=== PATIENT | male | born 1965 | race Caucasian/White ===

== ENCOUNTER 2019-10-09 10:54 | Day surgery (SDC) | payer BC ==
[2019-10-04 17:45] VITALS: BMI 31.0
[~2019-10-09 10:54] MED LIST: LACTATED RINGERS 1,000 ML IV SCH
[2019-10-09 11:33] VITALS: TEMP 98.2
[2019-10-09] MEDS ORDERED: LIDOCAINE 1% 20 ML VIAL (10MG/ML) FOR IV START INTRADERMA ONE (11:46)
[2019-10-09] MEDS ORDERED: PROPOFOL 10 MG/ML 20 ML VIAL IV ONE (12:29)
--- NOTE | 2019-10-09 12:47 | P.PCN ---
Date of Procedure: 10/09/19 Procedure(s) Performed: BRIEF HISTORY: Patient is a 54-year-old pleasant white male, scheduled for an elective colonoscopy as a part of screening for colorectal neoplasia. PROCEDURE PERFORMED: Colonoscopy. PREOPERATIVE DIAGNOSIS: Screening for colon cancer. IV sedation per Anesthesia. PROCEDURE: After informed consent was obtained, the patient, was brought into the endoscopy unit. IV sedation was administered by Anesthesia under continuous monitoring. Digital rectal examination was normal. Initially the Olympus CF-160 flexible video colonoscope was then inserted in the rectum, gradually advanced into the cecum without any difficulty. Careful examination was performed as the scope was gradually being withdrawn. Ileocecal valve and the appendiceal orifice were visualized and appeared normal. Prep was excellent. Mucosa of the cecum, ascending colon, transverse colon, descending colon, sigmoid colon, and rectum appeared normal. Retroflexion was performed in the rectum and no lesions were seen. The patient tolerated the procedure well. IMPRESSION: Normal-appearing colon from rectum to cecum . RECOMMENDATIONS: Findings of this examination were discussed with the patient as well as his family. He was advised to have a repeat screening colonoscopy in 10 years.
[2019-10-09 13:15] VITALS: BP 140/80; PULSE 83; RESP 18
== END 2019-10-09 13:33 | disposition home or self-care (01) ==
LOC: ORWHC2ENDO 10:54
PROVIDERS: ATTEND Internal Medicine Gastroenterology
DX: Z12.11 Encounter for screening for malignant neoplasm of colon (principal); K21.9 Gastro-esophageal reflux disease without esophagitis; Z79.899 Other long term (current) drug therapy
CPT/HCPCS: J2704; G0121; 45378

== ENCOUNTER 2023-03-24 13:39 | Inpatient (IN) | payer BC ==
[2023-03-24] MEDS ORDERED: NITROGLYCERIN OINT 1 INCH/GM PACKET TOPICAL STA (14:09)
[2023-03-24] MEDS ORDERED: ASPIRIN 81 MG PO STA (14:09)
[2023-03-24] MEDS ORDERED: HEPARIN SODIUM 1,000 UN/ML (10ML VL) IV ONE (14:09)
[2023-03-24] MEDS: ATORVASTATIN 80 MG TAB PO STA ×2 (14:15→14:21)
--- NOTE | 2023-03-24 14:16 | ED ---
General Adult HPI - General Chief complaint: Chest Pain Stated complaint: chest pain Time Seen by Provider: 03/24/23 14:06 Source: patient, RN notes reviewed Mode of arrival: ambulatory Limitations: no limitations - History of Present Illness Initial comments: Patient is a pleasant 58-year-old male presenting to the emergency department with concern for chest discomfort. Onset of symptoms was around an hour and a half prior to arrival. Patient has difficult time describing discomfort but was rated 4/10 without radiation. No associated nausea or diaphoresis. Patient may have been a little bit short of breath. No history of similar symptoms previously. Patient does have family history of cardiac disease however no history himself. No history of high blood pressure or high cholesterol. Patient does chew tobacco. Onset of symptoms was following mowing the lawn - Related Data Home Medications Medication Instructions Recorded Confirmed Lansoprazole [Prevacid] 30 mg PO DAILY 10/04/19 10/09/19 Allergies Allergy/AdvReac Type Severity Reaction Status Date / Time No Known Allergies Allergy Verified 03/24/23 13:40 Review of Systems ROS Statement: Those systems with pertinent positive or pertinent negative responses have been documented in the HPI. ROS Other: All systems not noted in ROS Statement are negative. Constitutional: Denies: fever Eyes: Denies: eye pain ENT: Denies: ear pain Respiratory: Reports: as per HPI Cardiovascular: Reports: as per HPI, chest pain Endocrine: Denies: fatigue Gastrointestinal: Denies: abdominal pain Genitourinary: Denies: dysuria Musculoskeletal: Denies: back pain Skin: Denies: rash Neurological: Denies: weakness Past Medical History Past Medical History: GERD/Reflux History of Any Multi-Drug Resistant Organisms: None Reported Past Surgical History: Cholecystectomy Past Anesthesia/Blood Transfusion Reactions: No Reported Reaction Past Psychological History: No Psychological Hx Reported Past Alcohol Use History: Occasional Past Drug Use History: None Reported - Past Family History Mother Family Medical History: No Reported History General Exam Limitations: no limitations General appearance: alert Head exam: Present: normocephalic Eye exam: Present: normal appearance Neck exam: Present: normal inspection Respiratory exam: Present: normal lung sounds bilaterally. Absent: chest wall tenderness Cardiovascular Exam: Present: regular rate, normal rhythm Expanded Peripheral pulses: 2+: Radial (R), Radial (L), Posterior Tibialis (R), Posterior Tibialis (L) GI/Abdominal exam: Present: soft. Absent: tenderness Extremities exam: Present: normal inspection. Absent: pedal edema, calf tenderness Neurological exam: Present: alert Psychiatric exam: Present: normal affect, normal mood Skin exam: Present: normal color Course Vital Signs 03/24/23 13:40 Temperature 98.2 F Pulse Rate 67 Respiratory 16 Rate Blood Pressure 159/87 O2 Sat by Pulse 100 Oximetry - Reevaluation(s) Reevaluation #1: 03/24/23 14:16 Case was discussed with Dr. Acuña, who will admit covering Dr. Carrion 03/24/23 14:17 Case was discussed with Dr. Wick who agrees with activating the lab and he will discuss this with Dr. Garcia 03/24/23 14:22 STEMI alert was called at 1406 when EKG was viewed. EKG was brought to me at this time. 03/24/23 14:25 Patient has gone to [facility] EKG Findings - EKG Results: EKG: interpreted by NASH (Inferior ST elevation with borderline lateral elevation. There is depression in aVL.), sinus rhythm, normal axis, normal QRS Medical Decision Making - Medical Decision Making Was pt. sent in by a medical professional or institution (, PA, MEDIA ANALYTICS MANAGER, urgent care, hospital, or jail...) When possible be specific @ -No Did you speak to anyone other than the patient for history (EMS, parent, family, police, friend...)? What history was obtained from this source @ -No Did you review nursing and triage notes (agree or disagree)? Why? @ -I reviewed and agree with nursing and triage notes Were old charts reviewed (outside hosp., previous admission, EMS record, old EKG, old radiological studies, urgent care reports/EKG's, jail records)? Report findings @ -No old charts were reviewed Differential Diagnosis (chest pain, altered mental status, abdominal pain women, abdominal pain men, vaginal bleeding, weakness, fever, dyspnea, syncope, headache, dizziness, GI bleed, back pain, seizure, CVA, palpatations, mental health)? @ -Differential Chest Pain: Stable Angina, Unstable Angina, STEMI, NSTEMI Aortic Dissection, Pneumothorax, Musculoskeletal, Esophageal Spasm GERD, Cholecystitis, Pancreatitis, Zoster, this is not meant to be an all-inclusive list. EKG interpreted by me (3pts min.). @ -As above X-rays interpreted by me (1pt min.). @ -Chest x-ray shows no acute process CT interpreted by me (1pt min.). @ -None done U/S interpreted by me (1pt. min.). @ -None done What testing was considered but not performed or refused? (CT, X-rays, U/S, labs)? Why? @ -None What meds were considered but not given or refused? Why? @ -None Did you discuss the management of the patient with other professionals (professionals i.e. DrNew, PA, MEDIA ANALYTICS MANAGER, lab, RT, psych nurse, social sciences research scientist, skin peeling machine operator, teacher, helicopter officer, casey saw operator)? Give summary @ -Case was discussed with Dr. Hartman, who will admit. Case also discussed with Dr. Wick with cardiology Was smoking cessation discussed for >3mins.? @ -No Was critical care preformed (if so, how long)? @ -15 minutes critical care time done Were there social determinants of health that impacted care today? How? (Homelessness, low income, unemployed, alcoholism, drug addiction, transportation, low edu. Level, literacy, decrease access to med. care, nursing home, rehab)? @ -No Was there de-escalation of care discussed even if they declined (Discuss DNR or withdrawal of care, Hospice)? DNR status @ -No What co-morbidities impacted this encounter? (DM, HTN, Smoking, COPD, CAD, Cancer, CVA, ARF, Chemo, Hep., AIDS, mental health diagnosis, sleep apnea, morbid obesity)? @ -None Was patient admitted / discharged? Hospital course, mention meds given and route, prescriptions, significant lab abnormalities, going to OR and other pertinent info. @ -Patient presents with STEMI on EKG following doing yard work. Patient is pain-free at this time however significant changes and symptoms consistent with STEMI patient will value from emergent cath. Patient will be admitted and go to [facility] shortly. Undiagnosed new problem with uncertain prognosis? @ -No Drug Therapy requiring intensive monitoring for toxicity (Heparin, Nitro, Insulin, Cardizem)? @ -No Were any procedures done? @ -No Diagnosis/symptom? @ -STEMI Acute, or Chronic, or Acute on Chronic? @ -Acute Uncomplicated (without systemic symptoms) or Complicated (systemic symptoms)? @ -default Side effects of treatment? @ -No Exacerbation, Progression, or Severe Exacerbation? @ -No Poses a threat to life or bodily function? How? (Chest pain, [place], MA, pneumonia, PE, COPD, DKA, ARF, appy, cholecystitis, CVA, Diverticulitis, Homicidal, Suicidal, threat to staff... and all critical care pts) @ -No Critical Care Time Critical Care Time: Yes Total Critical Care Time: 15 Disposition Clinical Impression: ST elevation myocardial infarction (STEMI) Disposition: ADMITTED IP TO THIS HOSP Condition: Critical Is patient prescribed a controlled substance at d/c from ED?: No Time of Disposition: 14:26
[2023-03-24] MEDS ORDERED: NALOXONE 0.4 MG/ML 1 ML VIAL IV PRN (14:20)
--- NOTE | 2023-03-24 14:20 | XR ---
EXAMINATION TYPE: XR chest 1V portable DATE OF EXAM: 03/24/2023 2:16 PM COMPARISON: None TECHNIQUE: XR chest 1V portable Portable AP radiograph of the chest. CLINICAL INDICATION:Male, 58 years old with history of chest pain; FINDINGS: Lungs/Pleura: There is no evidence of pleural effusion, focal consolidation, or pneumothorax. Pulmonary vascularity: Unremarkable. Heart/mediastinum: Cardiomediastinal silhouette is unremarkable. Musculoskeletal: No acute osseous pathology. IMPRESSION: No acute cardiopulmonary disease/process.
[2023-03-24 14:28] LABS: Basophils % (A) 0 %; Eosinophils # (A) 0.1 k/uL (0-0.7); Eosinophils % (A) 1 %; HGB 15.9 gm/dL (13.0-17.5); Lymphocytes # (A) 1.6 k/uL (1.0-4.8); Lymphocytes % (A) 20 %; MCHC 33.8 g/dL (31.0-37.0); MCV 88.8 fL (80.0-100.0); Mean Platelet Volume 7.3; Monocytes # (A) 0.3 k/uL (0-1.0); Monocytes % (A) 4 %; Neutrophils # (A) 5.7 k/uL (1.3-7.7); Neutrophils % (A) 73 %; Platelet Count 261 k/uL (150-450); RBC 5.29 m/uL (4.30-5.90); RDW 13.3 % (11.5-15.5); WBC 7.8 k/uL (3.8-10.6)
[2023-03-24] MEDS ORDERED: HEPARIN SODIUM 1,000 UN/ML (10ML VL) ONE (14:30)
[2023-03-24] MEDS ORDERED: fentaNYL (PF) 50 MCG/ML 2 ML AMP ONE (14:30)
[2023-03-24] MEDS ORDERED: MIDAZOLAM 2 MG/2 ML VIAL IV ONE (14:33)
[2023-03-24] MEDS ORDERED: fentaNYL (PF) 50 MCG/ML 2 ML AMP IV ONE (14:33)
[2023-03-24 14:36] LABS: INR 0.9 (<1.2); Partial Thromboplastin Time 23.2 sec (22.0-30.0); Prothrombin Time 9.8 sec (9.0-12.0)
[2023-03-24] MEDS ORDERED: SODIUM CHLORIDE 0.9% 1,000 ML IV ONE (14:37)
[2023-03-24] MEDS ORDERED: LIDOCAINE 1% INJ 10MG/ML (5 ML VIAL-PF) SQ ONE (14:39)
[2023-03-24] MEDS: HEPARIN SODIUM 1,000 UN/ML (10ML VL) IV ONE ×2 (14:44→14:55)
[2023-03-24 14:45] LABS: ALT 45 U/L (4-49); AST 51 U/L (17-59); African American GFR (CKD) >90 (>60 ml/min/1.73 sqM); Albumin 4.7 g/dL (3.5-5.0); Alkaline Phosphatase 59 U/L (38-126); Anion Gap 14 mmol/L; Blood Urea Nitrogen 19 mg/dL (9-20); Calcium 9.5 mg/dL (8.4-10.2); Carbon Dioxide 22 mmol/L (22-30); Chloride 103 mmol/L (98-107); Glucose 120 mg/dL (74-99); Non-African American GFR(CKD) 80 (>60 ml/min/1.73 sqM); Potassium 4.1 mmol/L (3.5-5.1); Sodium 139 mmol/L (137-145); Total Protein 7.6 g/dL (6.3-8.2)
[2023-03-24] MEDS ORDERED: ATROPINE SULFATE 0.1 MG/ML 10ML SYRINGE IV ONE (14:48)
[2023-03-24] MEDS: PHENYLEPHRINE-0.9% NACL SYG 1,000 MCG/10 ML SYRINGE IV ONE ×2 (14:49→14:58)
[2023-03-24] MEDS ORDERED: PRASUGREL 10 MG TAB ONE (14:52)
[2023-03-24] MEDS ORDERED: PRASUGREL 10 MG TAB PO ONE (14:59)
[2023-03-24] MEDS: NITROGLYCERIN 1000MCG/10ML SYRINGE INTRACORON ONE ×2 (15:12→15:23)
[2023-03-24] MEDS ORDERED: IOPAMIDOL-370 200ML BTL INJ ONE (15:32)
[2023-03-24 16:06] LABS: Glucose,Whole Blood 93 mg/dL (70-110)
[2023-03-24] MEDS ORDERED: NITROGLYCERIN SL TABS 0.4 MG TAB SUBLINGUAL PRN (17:09)
[2023-03-24] MEDS ORDERED: MAG HYDROX/AL HYDROX/SIMETH 30 ML CUP PO PRN (17:09)
[2023-03-24] MEDS ORDERED: ZOLPIDEM 5 MG TAB PO PRN (17:09)
[2023-03-24] MEDS ORDERED: ATROPINE SULFATE 0.1 MG/ML 10ML SYRINGE IV PRN (17:09)
[2023-03-24] MEDS ORDERED: RX INFO: IV CONTRAST WAS GIVEN 1 EACH MISC MISCELLANE PRN (17:09)
--- NOTE | 2023-03-24 17:39 | P.HPIM ---
History of Present Illness H&P Date: 03/24/23 Patient is a 58-year-old male with no significant past medical history presenting with chest discomfort. He claims that over the last 2 days he has been working hard in his yard. He noticed increased chest tightness today and decided come to the hospital. He denies any palpitations, shortness breath, lightheadedness, abdominal pain, nausea, vomiting, urinary or bowel complaints. He has a significant family history of coronary artery disease. He also chews tobacco daily, denies any illicit drug use, occasional alcohol use. In the ED, temperature was 98.2, blood pressure 159/87, respiratory rate 16, pulse 67, saturating 100% on room air. EKG shows inferior STEMI.. Chest x-ray shows no acute process. Laboratory workup shows unremarkable CBC, unremarkable CMP, initial troponin 0.022. STEMI pager alerted. Patient taken straight to laboratory specialist. He will be admitted to medical ICU after catheterization. Pertinent positives and negatives as discussed in HPI, a complete review of systems was performed and all other systems are negative. Patient seen and examined at bedside. Vital signs reviewed General: nontoxic, no distress, appears at stated age Derm: warm, dry Head: atraumatic, normocephalic, symmetric Eyes: EOMI, no lid lag, anicteric sclera, pupils equal round reactive to light ENT: Nose and ears atraumatic Neck: No thyromegaly, supple Mouth: no lip lesion, mucus membranes moist Cardiovascular: S1S2 reg, no murmur, no edema Lungs: clear to auscultation bilateral, no rhonchi, no rales, no wheeze, no accessory muscle use Abdominal: soft, nontender to palpation, no guarding, no appreciable organomegaly Ext: no gross muscle atrophy, muscle strength muscle strength 5 out of 5 in all 4 extremities, no contractures Neuro: CN II-XII grossly intact Psych: Alert, oriented, appropriate affect Assessment/Plan: Active: Acute inferior STEMI Tobacco dependence -Aspirin, statin, second antiplatelet therapy per cardiology -Continue telemetry -Patient to be admitted to medical ICU -Echocardiogram pending -A1c, lipid panel, TSH pending -Cardiology following -Cath report pending -Counseled regarding tobacco cessation The patient is admitted with an anticipated greater than 2 midnight stay as inpatient status for evaluation of acute inferior STEMI. Surrogate decision-maker: Spouse CODE STATUS: Full code DVT prophylaxis: Subcu heparin Anticipated discharge date: Pending clinical course Anticipated discharge place: Pending clinical course A total of 55 minutes was spent on the care of this complex patient more than 50% of the time was spent in counseling and care coordination. Past Medical History Past Medical History: GERD/Reflux History of Any Multi-Drug Resistant Organisms: None Reported Past Surgical History: Cholecystectomy Past Anesthesia/Blood Transfusion Reactions: No Reported Reaction Past Psychological History: No Psychological Hx Reported Past Alcohol Use History: Occasional Past Drug Use History: None Reported - Past Family History Mother Family Medical History: No Reported History Medications and Allergies Home Medications Medication Instructions Recorded Confirmed Type No Known Home Medications 03/24/23 03/24/23 History Allergies Allergy/AdvReac Type Severity Reaction Status Date / Time No Known Allergies Allergy Verified 03/24/23 16:43 Physical Exam Vitals: Vital Signs Temp Pulse Resp BP Pulse Ox 03/24/23 14:25 72 18 145/82 99 03/24/23 14:10 75 18 156/75 98 03/24/23 13:40 98.2 F 67 16 159/87 100 Intake and Output 03/24/23 03/24/23 03/24/23 06:59 14:59 22:59 Intake Total 500 Balance 500 Intake: IV 500 Other: Weight 92.986 kg Results CBC & Chem 7: 03/24/23 14:14 03/24/23 14:14 Labs: Abnormal Lab Results - Last 24 Hours (Table) 03/24/23 Range/Units 14:14 Glucose 120 H (74-99) mg/dL Total Bilirubin 2.0 H (0.2-1.3) mg/dL
[2023-03-24] MEDS: SODIUM CHLORIDE 0.9% 1,000 ML in EMPTY BAG 1 BAG IV SCH (17:48)
--- NOTE | 2023-03-24 21:37 | P.CRDCN ---
History of Present Illness History of present illness: HISTORY OF PRESENT ILLNESS: This is a 58-year-old male with a past medical history significant for family history of CAD, chewing tobacco use, and no significant medical problems who presents secondary to substernal chest pain. Occasionally if he over exerts himself to the extreme he would have mild chest discomfort however usually only for a short 10-20 seconds and would stop and therefore has not thought much of it. Today he was working in the yard mowing the grass and started to have constant chest pain with some SOB and therefore came to ER. EKG showed sinus rhythm and ST elevations and therefore catheterization lab was activated and was given aspirin and Heparin. REVIEW OF SYSTEMS: At the time of my exam: CONSTITUTIONAL: Denies fever or chills. HEENT: Denies blurred vision, vision changes, or eye pain. Denies hemoptysis CARDIOVASCULAR: +chest pain. Denies orthopnea. Denies PND. Denies palpitations RESPIRATORY: +shortness of breath. GASTROINTESTINAL: Denies abdominal pain. Denies nausea or vomiting. HEMATOLOGIC: Denies bleeding disorders. GENITOURINARY: Denies any blood in urine. SKIN: Denies pruitis. Denies rash. PHYSICAL EXAM: VITAL SIGNS: Reviewed. GENERAL: Well-developed in no acute distress. HEENT: Head is normocephalic. Pupils are equal, round. Sclerae anicteric. Mucous membranes of the mouth are moist. Neck supple. No JVD or thyromegaly LUNGS: Respirations even and unlabored. Lungs essentially clear to auscultation bilaterally. HEART: Regular rate and rhythm. S1 and S2 heard. ABDOMEN: Soft. Nondistended. Nontender. EXTREMITIES: Normal range of motion. No clubbing or cyanosis. Peripheral pulses intact. No lower extremity edema NEUROLOGIC: Awake and alert. Oriented x 3. ASSESSMENT: Acute inferior STEMI Family history of CAD HLD Chewing tobacco use PLAN: Discussed recommendations for urgent heart catheterization and patient is agreeable. Check 2D echo. Aspirin, heparin. BBlocker as tolerated. Further recommendations to follow. Past Medical History Past Medical History: GERD/Reflux Last Myocardial Infarction Date:: 03/24/23 History of Any Multi-Drug Resistant Organisms: None Reported Past Surgical History: Cholecystectomy Past Anesthesia/Blood Transfusion Reactions: No Reported Reaction Past Psychological History: No Psychological Hx Reported Past Alcohol Use History: Occasional Past Drug Use History: None Reported - Past Family History Mother Family Medical History: No Reported History Medications and Allergies Home Medications Medication Instructions Recorded Confirmed Type No Known Home Medications 03/24/23 03/24/23 History Allergies Allergy/AdvReac Type Severity Reaction Status Date / Time No Known Allergies Allergy Verified 03/24/23 16:43 Physical Exam Vitals: Vital Signs Temp Pulse Resp BP Pulse Ox 03/24/23 21:00 68 11 L 110/69 96 03/24/23 20:30 58 L 14 115/61 94 L 03/24/23 20:00 98.0 F 56 L 12 108/70 95 03/24/23 19:30 65 16 104/66 95 03/24/23 19:00 59 L 14 106/64 97 03/24/23 18:30 79 16 107/66 96 03/24/23 18:00 59 L 14 105/62 98 03/24/23 17:45 58 L 15 105/62 98 03/24/23 17:30 55 L 13 109/65 99 03/24/23 17:00 61 20 119/61 99 03/24/23 16:45 62 16 98/63 100 03/24/23 16:30 68 14 115/71 100 03/24/23 16:15 73 17 113/69 98 03/24/23 16:00 98.1 F 78 10 L 112/74 97 03/24/23 15:56 98 03/24/23 14:25 72 18 145/82 99 03/24/23 14:10 75 18 156/75 98 03/24/23 13:40 98.2 F 67 16 159/87 100 Intake and Output 03/24/23 03/24/23 03/24/23 06:59 14:59 22:59 Intake Total 500 465 Output Total 1025 Balance 500 -560 Intake: IV 500 465 Sodium Chloride 0.9% 1, 465 000 ml In Empty Bag 1 bag @ 1 ML/KG/HR 92.986 mls/ hr IV .[id number] [facility] Rx#: [id number] Output: Urine 1025 Other: # Voids 1 Weight 92.986 kg 92.986 kg Results 03/24/23 14:14 03/24/23 14:14 Cardiac Enzymes 03/24/23 03/24/23 Range/Units 14:14 14:14 AST 51 (17-59) U/L Troponin I 0.022 (0.000-0.034) ng/mL Coagulation 03/24/23 Range/Units 14:14 PT 9.8 (9.0-12.0) sec APTT 23.2 (22.0-30.0) sec CBC 03/24/23 Range/Units 14:14 WBC 7.8 (3.8-10.6) k/uL RBC 5.29 (4.30-5.90) m/uL Hgb 15.9 (13.0-17.5) gm/dL Hct 47.0 (39.0-53.0) % Plt Count 261 (150-450) k/uL Comprehensive Metabolic Panel 03/24/23 Range/Units 14:14 Sodium 139 (137-145) mmol/L Potassium 4.1 (3.5-5.1) mmol/L Chloride 103 (98-107) mmol/L Carbon Dioxide 22 (22-30) mmol/L BUN 19 (9-20) mg/dL Creatinine 1.03 (0.66-1.25) mg/dL Glucose 120 H (74-99) mg/dL Calcium 9.5 (8.4-10.2) mg/dL AST 51 (17-59) U/L ALT 45 (4-49) U/L Alkaline Phosphatase 59 (38-126) U/L Total Protein 7.6 (6.3-8.2) g/dL Albumin 4.7 (3.5-5.0) g/dL Current Medications Generic Name Dose Route Start Last Admin Trade Name Freq PRN Reason Stop Dose Admin Al Hydroxide/Mg Hydroxide 30 ml 03/24/23 17:09 Mag Hydrox/Al Hydrox/Simeth 30 Ml Cup PO Q4HR PRN Heartburn Aspirin 81 mg 03/25/23 09:00 Aspirin 81 Mg PO DAILY ERNESTO Atorvastatin Calcium 80 mg 03/25/23 09:00 Atorvastatin 80 Mg Tab PO DAILY ERNESTO Atropine Sulfate 0.5 mg 03/24/23 17:09 Atropine Sulfate 0.1 Mg/Ml 10ml Syringe IV ONCE PRN Symptomatic Bradycardia Heparin Sodium (Porcine) 5,000 unit 03/25/23 00:00 Heparin Sodium,Porcine/Pf 5,000 Unit/0.5 Ml Syringe SQ Q8HR ERNESTO Sodium Chloride 1,000 ml/ IV 1,000 mls @ 92.986 mls/hr 03/24/23 17:15 03/24/23 17:48 Solution IV 92.986 mls/hr .[id number] ERNESTO Administration 1 ML/KG/HR Miscellaneous Information 1 each 03/24/23 17:09 Rx Info: Iv Contrast Was Given 1 Each Mis MISCELLANE 03/26/23 17:09 DAILY PRN Per Protocol Naloxone HCl 0.2 mg 03/24/23 14:20 Naloxone 0.4 Mg/Ml 1 Ml Vial IV 04/23/23 14:21 Q2M PRN Opioid Reversal Nitroglycerin 0.4 mg 03/24/23 17:09 Nitroglycerin Sl Tabs 0.4 Mg Tab SUBLINGUAL Q5M PRN Chest Pain Zolpidem Tartrate 5 mg 03/24/23 17:09 Zolpidem 5 Mg Tab PO HS PRN Insomnia Intake and Output 03/24/23 03/24/23 03/24/23 06:59 14:59 22:59 Intake Total 500 465 Output Total 1025 Balance 500 -560 Intake: IV 500 465 Sodium Chloride 0.9% 1, 465 000 ml In Empty Bag 1 bag @ 1 ML/KG/HR 92.986 mls/ hr IV .[id number] ERNESTO Rx#: [id number] Output: Urine 1025 Other: # Voids 1 Weight 92.986 kg 92.986 kg Patient Weight 03/25/23 06:59 Weight 92.986 kg 03/24/23 14:14 03/24/23 14:14
--- NOTE | 2023-03-24 21:53 | P.PRCINT ---
Percutaneous Coronary Int. - Percutaneous Coronary Intervention Percutaneous Coronary Intervention: PROCEDURES PERFORMED: Bilateral coronary angiography, Penumbra aspiration thrombectomy RCA, PCI proximal RCA with 3.5 x 28mm Xience EDWARD, post dilated with a 3.75NC balloon, PCI distal RCA with a 2.5 x 38mm Xience EDWARD post dilated with a 2.75NC balloon, IVUS RCA INDICATION: NSTEMI CONSENT:I have discussed the risks, benefits and alternative therapies for the above-mentioned procedure and for both sedation/analgesia as well as necessary blood product administration, if indicated, as they pertain to this patient. The patient has indicated understanding and acceptance of the risks and procedures discussed. PROCEDURE: After the risks, benefits and alternatives of the above mentioned procedure explained in detail with the patient, informed consent was obtained. Patient was taken to the catheterization lab and prepped and draped in usual fashion. 1% lidocaine was used to anesthetize the right radial artery. A 6- Malawian sheath was placed in the right radial artery using modified Seldinger technique. RCA angiography was performed with a 6Fr AL 0.75 guide. The decision was made to perform PCI of the RCA. Heparin was given. A 0.014 BMW wire was advanced into the distal PLV. There was high thrombus burden and therefore the decision was made to perform aspiration thrombectomy with a Penumbra catheter for 3 passes. Next predilation was performed with a 2.5 x 12mm balloon. Next IVUS was performed which showed diffuse distal RCA disease as well as throughout the entire artery. There was additional proximal RCA 70% stenosis and therefore decision was made to perform PCI of the proximal RCA as well. A 2.5 x 38mm Xience EDWARD was placed distally. This stent was post dilated with a 2.75 NC balloon. A 3.5 x 28mm Xience EDWARD was placed proximal RCA. The stent was post dilated with a 3.75NC balloon. Repeat IVUS showed good stent apposition. Preintervention there was 99% distal RCA stenosis and 70% proximal RCA stenosis with JEROME 1 flow and post intervention there was < 10% stenosis and JEROME 3 flow. Left coronary angiography was performed with a 5-Malawian JL 3.5 catheter. The right radial sheath was removed and a TR band was placed with hemostasis achieved. The patient tolerated the procedure well. Patient was transported back to the post catheterization holding area in stable condition. Conscious Sedation: Patient was monitored under the direct supervision of myself for conscious sedation using Versed and fentanyl for a total duration of 53 minutes HEMODYNAMICS: Aorta: 109/70 SELECTIVE CORONARY ARTERIOGRAPHY: LEFT MAIN: The left main is a large caliber vessel which bifurcates into the LAD and circumflex. There is distal left main 30% stenosis. LEFT ANTERIOR DESCENDING CORONARY ARTERY: LAD is a large caliber vessel which wraps around to the apex. There is mild 30% proximal LAD stenosis and then long area of 50% stenosis involving a moderate caliber diagonal branch and then a mid LAD 90% stenosis. LEFT CIRCUMFLEX CORONARY ARTERY: Left circumflex is a moderate caliber vessel with mild luminal irregularities. RIGHT CORONARY ARTERY: The right coronary artery is a large caliber vessel which gives off a PDA and PLV branch and is the dominant vessel. There is diffuse 30% stenosis throughout the entire artery and more focal proximal 70% stenosis and a distal 99% RCA stenosis. PLV has a 50% mid stenosis. FINAL IMPRESSION: 1. CAD as described above including 70% proximal RCA, 99% distal RCA, mid LAD 90% and left main 30% stenosis 2. S/p PCI proximal RCA with 3.5 x 28mm Xience EDWARD, post dilated with a 3.75NC balloon, PCI distal RCA with a 2.5 x 38mm Xience EDWARD post dilated with a 2.75NC balloon PLAN: 1. Aggressive risk factor modification per most recent ACC/AHA guidelines. 2. Continue dual antiplatelets with aspirin and Effient for 12 months. 3. Staged PCI of LAD in next 30 days.
[2023-03-24] MEDS: HEPARIN SODIUM,PORCINE/PF 5,000 UNIT/0.5 ML SYRINGE SQ SCH (23:57)
[2023-03-25] MEDS: SODIUM CHLORIDE 0.9% 1,000 ML in EMPTY BAG 1 BAG IV SCH ×2 (05:03→18:28)
[2023-03-25 06:23] LABS: Basophils % (A) 0 %; Eosinophils # (A) 0.1 k/uL (0-0.7); Eosinophils % (A) 1 %; HGB 13.7 gm/dL (13.0-17.5); Lymphocytes # (A) 1.4 k/uL (1.0-4.8); Lymphocytes % (A) 22 %; MCHC 33.3 g/dL (31.0-37.0); Mean Platelet Volume 7.4; Monocytes # (A) 0.3 k/uL (0-1.0); Monocytes % (A) 6 %; Neutrophils # (A) 4.3 k/uL (1.3-7.7); Neutrophils % (A) 69 %; Platelet Count 203 k/uL (150-450); RBC 4.56 m/uL (4.30-5.90); RDW 13.4 % (11.5-15.5); WBC 6.2 k/uL (3.8-10.6)
[2023-03-25 06:38] LABS: African American GFR (CKD) >90 (>60 ml/min/1.73 sqM); Anion Gap 7 mmol/L; Blood Urea Nitrogen 12 mg/dL (9-20); Calcium 8.3 mg/dL (8.4-10.2); Carbon Dioxide 21 mmol/L (22-30); Chloride 110 mmol/L (98-107); Glucose 97 mg/dL (74-99); Non-African American GFR(CKD) >90 (>60 ml/min/1.73 sqM); Potassium 4.1 mmol/L (3.5-5.1); Sodium 138 mmol/L (137-145)
[2023-03-25] MEDS: HEPARIN SODIUM,PORCINE/PF 5,000 UNIT/0.5 ML SYRINGE SQ SCH ×3 (08:37→23:59)
[2023-03-25] MEDS: ATORVASTATIN 80 MG TAB PO SCH (08:38)
[2023-03-25] MEDS: ASPIRIN 81 MG PO SCH (08:38)
[2023-03-25] MEDS: METOPROLOL SUCCINATE (ER) 25 MG TAB.ER.24H PO SCH (08:38)
[2023-03-25] MEDS: PRASUGREL 10 MG TAB PO SCH (10:14)
--- NOTE | 2023-03-25 10:51 | P.PN ---
Subjective Progress Note Date: 03/25/23 Hospital Course: 58-year-old male with no significant past medical history presenting with chest discomfort. In the ED, temperature was 98.2, blood pressure 159/87, respiratory rate 16, pulse 67, saturating 100% on room air. EKG shows inferior STEMI.. Chest x-ray shows no acute process. Laboratory workup shows unremarkable CBC, unremarkable CMP, initial troponin 0.022. He is now status post stent 2. Left heart cath showed 70% proximal RCA, 99% distal RCA, mid LAD 90%, left main 30% stenosis. Patient is currently on aspirin, statin, and effient. Will need staged PCI for LAD in the next 30 days. Echocardiogram pending. Subjective: Patient seen and examined at bedside. No acute events overnight. He denies any chest pain, shortness of breath, lightheadedness, abdominal pain, nausea, vomiting, diarrhea, constipation, or urinary complaints. Pertinent positives and negatives as discussed above, a complete review of systems was performed and all other systems are negative. Vitals Signs Reviewed. General: nontoxic, no distress, appears at stated age Derm: warm, dry Head: atraumatic, normocephalic, symmetric Eyes: EOMI, no lid lag, anicteric sclera Mouth: no lip lesion, mucus membranes moist Cardiovascular: S1S2 reg, no murmur Lungs: CTA bilateral, no rhonchi, no rales , no accessory muscle use Abdominal: soft, nontender to palpation, no guarding, no appreciable organomegaly Ext: no gross muscle atrophy, no edema, no contractures Neuro: CN II-XI grossly intact, no focal neuro deficits Psych: Alert, oriented, appropriate affect Data Reviewed Today: Pertinent Labs: WBC 6.2, hemoglobin 13.7, creatinine 0.83, TSH 1.8, A1c 5.4, lipid panel pending Imaging: EKG from this morning independently interpreted, shows sinus bradycardia Assessment and Plan: Patient currently remains in the medical ICU for close observation. Acute inferior STEMI Tobacco dependence -Aspirin, statin, effient -Continue telemetry -Echocardiogram pending -Lipid panel pending -Cardiology following, patient also started on metoprolol 12.5 -Patient will likely need staged PCI to LAD in the next 30 days -Counseled regarding tobacco cessation DVT ppx: Subcu heparin Code status: Full Code Anticipated discharge place: Home Anticipated discharge time: 1-2 days Objective - Vital Signs Vital signs: Vital Signs Temp 97.8 F 03/25/23 08:00 Pulse 61 03/25/23 10:00 Resp 13 03/25/23 10:00 BP 110/57 03/25/23 10:00 Pulse Ox 97 03/25/23 10:00 FiO2 Intake & Output 03/24/23 03/25/23 03/25/23 18:59 06:59 18:59 Intake Total 686 1209 279 Output Total 1501 550 Balance 686 292 -271 Weight 92.986 kg 97.1 kg Intake: IV 686 1209 279 Sodium Chloride 0.9% 1, 186 1209 279 000 ml In Empty Bag 1 bag @ 1 ML/KG/HR 92.986 mls/ hr IV .[id number] [facility] Rx#: [id number] Output: Urine 1500 550 Stool 1 Other: # Voids 0 0 - Labs CBC & Chem 7: 03/25/23 05:42 03/25/23 05:42 Labs: Abnormal Lab Results - Last 24 Hours (Table) 03/24/23 03/25/23 Range/Units 14:14 05:42 Chloride 110 H (98-107) mmol/L Carbon Dioxide 21 L (22-30) mmol/L Glucose 120 H (74-99) mg/dL Calcium 8.3 L (8.4-10.2) mg/dL Total Bilirubin 2.0 H (0.2-1.3) mg/dL
[2023-03-25 11:44] VITALS: BMI 31.6
[2023-03-25 13:41] LABS: LDL Cholesterol,Calculated 83.3 mg/dL (0.0-131.0)
--- NOTE | 2023-03-25 14:11 | P.PN ---
Subjective Progress Note Date: 03/25/23 This is Jb Cintron NP, I'm dictating on behalf of Dr. Bolden's H&P and A&P. Patient was interviewed and examined. Patient is a pleasant 58-year-old male who came in yesterday with a STEMI. Patient underwent percutaneous coronary intervention, which found coronary artery disease at 70% in the proximal RCA, 99% in the distal RCA, 90% in the mid LAD, and 30% stenosis in the left main. Patient underwent PCI of the proximal RCA and distal RCA, along with clot removal. Patient did well with the proc edure, and reports that he is doing well today. He is denying chest pain, and shortness of breath. The site of the PCI in the right wrist is clean, dry, and intact, peripheral pulses are present. GENERAL: Well-appearing, well-nourished and in no acute distress. NECK: Supple without JVD or thyromegaly. LUNGS: Breath sounds clear to auscultation bilaterally. Respiration equal and unlabored. No wheezes, rales or rhonchi. HEART: Regular rate and rhythm without murmurs, rubs or gallops. S1 and S2 heard. EXTREMITIES: Normal range of motion, no edema. No clubbing or cyanosis. Peripheral pulses intact and strong. VITALS: Temp 97.8, pulse 77, respirations 12, blood pressure 122/69, O2 saturation 95% on room air TELEMETRY: Normal sinus rhythm LABS: White count 6.2, hemoglobin 13.7, platelets 203, sodium 138, potassium 4.1, B1 12, creatinine 0.83, hemoglobin A1c 5.4, calcium 8.3, triglycerides 106, cholesterol 148, LDL 83.3, HDL 43.5, TSH 1.88 IMPRESSION: 1. Coronary artery disease 2. STEMI, status post PCI to proximal and distal RCA PLAN: Patient has started atorvastatin 80 mg daily. This should be continued. Continue metoprolol. Post cath echocardiogram has been completed. Results pending. Continue aspirin and Effient. Patient may be transferred to [address] [place] [address]. Further recommendations based on patient's clinical course. Objective - Vital Signs Vital signs: Vital Signs Temp 98.1 F 03/25/23 12:00 Pulse 55 L 03/25/23 14:00 Resp 12 03/25/23 14:00 BP 108/67 03/25/23 14:00 Pulse Ox 96 03/25/23 14:00 FiO2 Intake & Output 03/24/23 03/25/23 03/25/23 18:59 06:59 18:59 Intake Total 686 1209 651 Output Total 1501 1250 Balance 686 -370 -551 Weight 92.986 kg 97.1 kg 97.1 kg Intake: IV 686 1209 651 Sodium Chloride 0.9% 1, 186 1209 651 000 ml In Empty Bag 1 bag @ 1 ML/KG/HR 92.986 mls/ hr IV .[id number] [facility] Rx#: [id number] Output: Urine 1500 1250 Stool 1 Other: # Voids 0 0 - Labs CBC & Chem 7: 03/25/23 05:42 03/25/23 05:42 Labs: Abnormal Lab Results - Last 24 Hours (Table) 03/24/23 03/25/23 Range/Units 14:14 05:42 Chloride 110 H (98-107) mmol/L Carbon Dioxide 21 L (22-30) mmol/L Glucose 120 H (74-99) mg/dL Calcium 8.3 L (8.4-10.2) mg/dL Total Bilirubin 2.0 H (0.2-1.3) mg/dL
--- NOTE | 2023-03-25 17:27 | CA ---
Transthoracic Echo Report Name: Harjit Calvin Age: 58 Gender: M : 1965 Exam Date: 03/25/2023 07:50 Exam Location: [facility] Echo Ht (in): 69 Wt (lb): 214 Ordering Physician: Marek Acuña MD Attending/Referring Phys: Caser Ernestina Cee RDCS Procedure CPT: Indications: stemi Cardiac Hx: Technical Quality: Fair Contrast 1: Total Dose (mL): Contrast 2: Total Dose (mL): MEASUREMENTS (Male / Female) Normal Values 2D ECHO LV Diastolic Diameter PLAX 3.7 cm 4.2 - 5.9 / 3.9 - 5.3 cm LV Systolic Diameter PLAX 2.8 cm IVS Diastolic Thickness 1.3 cm 0.6 - 1.0 / 0.6 - 0.9 cm LVPW Diastolic Thickness 1.2 cm 0.6 - 1.0 / 0.6 - 0.9 cm LV Relative Wall Thickness 0.7 RV Internal Dim ED PLAX 3.3 cm LA Volume 43.5 cm??? 18 - 58 / 22 - 52 cm??? M-MODE Aortic Root Diameter MM 3.2 cm LA Systolic Diameter MM 4.2 cm LA Ao Ratio MM 1.3 AV Cusp Separation MM 1.8 cm DOPPLER AV Peak Velocity 160.2 cm/s AV Peak Gradient 10.3 mmHg AV Mean Velocity 110.0 cm/s AV Mean Gradient 5.3 mmHg AV Velocity Time Integral 29.7 cm LVOT Peak Velocity 138.9 cm/s LVOT Peak Gradient 7.7 mmHg LVOT Velocity Time Integral 27.9 cm MV Area PHT 3.3 cm??? Mitral E Point Velocity 93.0 cm/s Mitral A Point Velocity 73.1 cm/s Mitral E to A Ratio 1.3 MV Deceleration Time 232.2 ms MV E' Velocity 7.9 cm/s Mitral E to MV E' Ratio 11.8 TR Peak Velocity 261.9 cm/s TR Peak Gradient 27.4 mmHg Right Ventricular Systolic Press 32.4 mmHg FINDINGS Left Ventricle Left ventricular cavity size normal. Mildly increased left ventricular wall thickness. Normal left ventricular systolic function with no obvious regional wall motion abnormalities. Left ventricular ejection fraction is estimated at 55-60 %. Right Ventricle Normal right ventricular size and function. Right ventricular systolic pressure within normal limits. Right Atrium Normal right atrial size. Left Atrium Normal left atrial size. Mitral Valve Structurally normal mitral valve. Mild mitral regurgitation. Aortic Valve Trileaflet aortic valve. No aortic valve stenosis or regurgitation. Tricuspid Valve Structurally normal tricuspid valve. Mild tricuspid regurgitation. Pulmonic Valve Structurally normal pulmonic valve. Trace pulmonic regurgitation. Pericardium No pericardial effusion. Aorta Normal size aortic root and proximal ascending aorta. CONCLUSIONS Normal LV systolic function Previewed by: Dr. Giancarlo Bolden MD (Electronically Signed) Final Date: 25 Mar 2023 17:26
[2023-03-26] MEDS: SODIUM CHLORIDE 0.9% 1,000 ML in EMPTY BAG 1 BAG IV SCH ×2 (00:14→17:10)
[2023-03-26 06:30] LABS: Basophils % (A) 1 %; Eosinophils # (A) 0.1 k/uL (0-0.7); Eosinophils % (A) 2 %; HCT 42.7 % (39.0-53.0); HGB 14.1 gm/dL (13.0-17.5); Lymphocytes # (A) 1.9 k/uL (1.0-4.8); Lymphocytes % (A) 32 %; MCH 29.9 pg (25.0-35.0); MCV 90.7 fL (80.0-100.0); Mean Platelet Volume 7.2; Monocytes # (A) 0.3 k/uL (0-1.0); Monocytes % (A) 6 %; Neutrophils # (A) 3.3 k/uL (1.3-7.7); Neutrophils % (A) 56 %; Platelet Count 199 k/uL (150-450); RBC 4.71 m/uL (4.30-5.90); RDW 13.5 % (11.5-15.5); WBC 5.8 k/uL (3.8-10.6)
[2023-03-26 06:43] LABS: African American GFR (CKD) >90 (>60 ml/min/1.73 sqM); Anion Gap 7 mmol/L; Blood Urea Nitrogen 11 mg/dL (9-20); Calcium 8.5 mg/dL (8.4-10.2); Carbon Dioxide 22 mmol/L (22-30); Chloride 109 mmol/L (98-107); Glucose 96 mg/dL (74-99); Non-African American GFR(CKD) >90 (>60 ml/min/1.73 sqM); Potassium 4.3 mmol/L (3.5-5.1); Sodium 138 mmol/L (137-145)
[2023-03-26] MEDS: ASPIRIN 81 MG PO SCH (08:55)
[2023-03-26] MEDS: HEPARIN SODIUM,PORCINE/PF 5,000 UNIT/0.5 ML SYRINGE SQ SCH ×3 (08:55→23:30)
[2023-03-26] MEDS: ATORVASTATIN 80 MG TAB PO SCH (08:55)
[2023-03-26] MEDS: PRASUGREL 10 MG TAB PO SCH (08:55)
[2023-03-26] MEDS: METOPROLOL SUCCINATE (ER) 25 MG TAB.ER.24H PO SCH (08:55)
--- NOTE | 2023-03-26 14:30 | P.PN ---
Subjective Progress Note Date: 03/26/23 This is Jb Cintron NP, I'm dictating on behalf of Dr. Bolden's H&P and A&P. Patient was interviewed and examined. Patient is a pleasant 50-year-old male who presented to the hospital with a STEMI. Patient underwent percutaneous coronary intervention, which found coronary artery disease at 70% in the proximal RCA, 99% in the distal RCA, 90% in the mid LAD, and 30% stenosis in the left main. Patient underwent PCI of the proximal RCA and distal RCA, along with clot removal. Patient is doing well today. He is not complaining of any chest pain, shortness of breath, or palpitations. Patient's blood pressure is within normal limits, and his heart rate is within normal limits. Nursing did report the patient had a T-wave inversion yesterday afternoon, which is an possible finding post STEMI. It is likely the STEMI is evolving. We'll order an EKG for tomorrow morning to continue to evaluate. Post cath echocardiogram demonstrates a normal LV function, EF estimated 55-60%, mild mitral regurgitation, mild tricuspid regurgitation, trace pulmonic regurgitation. GENERAL: Well-appearing, well-nourished and in no acute distress. NECK: Supple without JVD or thyromegaly. LUNGS: Breath sounds clear to auscultation bilaterally. Respiration equal and unlabored. No wheezes, rales or rhonchi. HEART: Regular rate and rhythm without murmurs, rubs or gallops. S1 and S2 heard. EXTREMITIES: Normal range of motion, no edema. No clubbing or cyanosis. Peripheral pulses intact and strong. VITALS: Temp 98.4, pulse 96, respirations 19, blood pressure 120/72, O2 saturation 98% on room air TELEMETRY: Normal sinus rhythm LABS: White count 5.8, hemoglobin 14.1, platelets 199, sodium 138, potassium 4.3, BUN 11, creatinine 0.80, calcium 8.5, triglycerides 106, cholesterol 148, LDL 83.3, HDL 43.5, TSH 1.88 IMPRESSION: 1. Coronary artery disease 2. STEMI, status post PCI to proximal and distal RCA 3. T wave inversion post cath, likely secondary to evolving STEMI PLAN: Patient has started atorvastatin 80 mg daily. This should be continued. Continue metoprolol. Continue aspirin and Effient. Patient should walk in the hallway. Repeat EKG tomorrow morning. Further recommendations based on patient's clinical course. Objective - Vital Signs Vital signs: Vital Signs Temp 98.4 F 03/26/23 08:00 Pulse 59 L 03/26/23 14:00 Resp 12 03/26/23 14:00 BP 115/66 03/26/23 14:00 Pulse Ox 95 03/26/23 14:00 FiO2 Intake & Output 03/25/23 03/26/23 03/26/23 18:59 06:59 18:59 Intake Total 651 1080 700 Output Total 2049 1400 700 Balance -1399 -320 0 Weight 97.1 kg 96 kg Intake: IV 651 0 0 Sodium Chloride 0.9% 1, 651 0 0 000 ml In Empty Bag 1 bag @ 1 ML/KG/HR 92.986 mls/ hr IV .[id number] [facility] Rx#: [id number] Oral 1080 700 Output: Urine 2049 1400 700 Other: # Voids 1 - Labs CBC & Chem 7: 03/26/23 06:10 03/26/23 06:10 Labs: Abnormal Lab Results - Last 24 Hours (Table) 03/26/23 Range/Units 06:10 Chloride 109 H (98-107) mmol/L
--- NOTE | 2023-03-26 15:34 | P.PN ---
Subjective Progress Note Date: 03/26/23 Hospital Course: 58-year-old male with no significant past medical history presenting with chest discomfort. In the ED, temperature was 98.2, blood pressure 159/87, respiratory rate 16, pulse 67, saturating 100% on room air. EKG shows inferior STEMI.. Chest x-ray shows no acute process. Laboratory workup shows unremarkable CBC, unremarkable CMP, initial troponin 0.022. He is now status post stent 2. Left heart cath showed 70% proximal RCA, 99% distal RCA, mid LAD 90%, left main 30% stenosis. Patient is currently on aspirin, statin, and effient. Will need staged PCI for LAD in the next 30 days. Echocardiogram showed LVEF 55-60%. Subjective: Patient seen and examined at bedside. No acute events overnight. He denies any chest pain, shortness of breath, lightheadedness, abdominal pain, nausea, vomiting, diarrhea, constipation, or urinary complaints. Pertinent positives and negatives as discussed above, a complete review of systems was performed and all other systems are negative. Vitals Signs Reviewed. General: nontoxic, no distress, appears at stated age Derm: warm, dry Head: atraumatic, normocephalic, symmetric Eyes: EOMI, no lid lag, anicteric sclera Mouth: no lip lesion, mucus membranes moist Cardiovascular: S1S2 reg, no murmur Lungs: CTA bilateral, no rhonchi, no rales , no accessory muscle use Abdominal: soft, nontender to palpation, no guarding, no appreciable organomegaly Ext: no gross muscle atrophy, no edema, no contractures Neuro: CN II-XI grossly intact, no focal neuro deficits Psych: Alert, oriented, appropriate affect Data Reviewed Today: Pertinent Labs: WBC 5.8, hemoglobin 14.1, creatinine 0.8 Imaging: Echocardiogram report reviewed, LVEF 55-60% Assessment and Plan: Patient will likely be downgraded from the ICU Acute inferior STEMI Tobacco dependence -Aspirin, statin, effient -Continue telemetry -Cardiology note reviewed, and repeat EKG tomorrow -Patient will likely need staged PCI to LAD in the next 30 days -Counseled regarding tobacco cessation DVT ppx: Subcu heparin Code status: Full Code Anticipated discharge place: Home Anticipated discharge time: Likely tomorrow Objective - Vital Signs Vital signs: Vital Signs Temp 98.4 F 03/26/23 08:00 Pulse 59 L 03/26/23 14:00 Resp 12 03/26/23 14:00 BP 115/66 03/26/23 14:00 Pulse Ox 95 03/26/23 14:00 FiO2 Intake & Output 03/25/23 03/26/23 03/26/23 18:59 06:59 18:59 Intake Total 651 1080 700 Output Total 2049 1400 700 Balance -1399 -320 0 Weight 97.1 kg 96 kg Intake: IV 651 0 0 Sodium Chloride 0.9% 1, 651 0 0 000 ml In Empty Bag 1 bag @ 1 ML/KG/HR 92.986 mls/ hr IV .[id number] [facility] Rx#: [id number] Oral 1080 700 Output: Urine 2049 1400 700 Other: # Voids 1 - Labs CBC & Chem 7: 03/26/23 06:10 03/26/23 06:10 Labs: Abnormal Lab Results - Last 24 Hours (Table) 03/26/23 Range/Units 06:10 Chloride 109 H (98-107) mmol/L
[2023-03-26] MEDS ORDERED: METOPROLOL SUCCINATE (ER) 25 MG TAB.ER.24H PO STA (17:06)
[2023-03-27] MEDS: ATORVASTATIN 80 MG TAB PO SCH (08:16)
[2023-03-27] MEDS: ASPIRIN 81 MG PO SCH (08:16)
[2023-03-27] MEDS: HEPARIN SODIUM,PORCINE/PF 5,000 UNIT/0.5 ML SYRINGE SQ SCH (08:16)
[2023-03-27] MEDS: PRASUGREL 10 MG TAB PO SCH (08:17)
[2023-03-27] MEDS ORDERED: METOPROLOL SUCCINATE (ER) 25 MG TAB.ER.24H PO SCH (09:00)
[2023-03-27] MEDS ORDERED: ISOSORBIDE MONONITRATE ER 30 MG TAB.ER.24H PO SCH (09:30)
[2023-03-27 10:18] VITALS: BP 135/83; TEMP 97.9
--- NOTE | 2023-03-27 12:44 | P.DS ---
Providers Date of admission: 03/24/23 14:21 Expected date of discharge: 03/27/23 Attending physician: Marek Acuña MD Consults: 03/24/23 14:20 Consult Physician Stat Consulting Provider: Lam Singh Consult Reason/Comments: stemi Do you want consulting provider notified?: Already Contacted 03/24/23 17:09 Consult Physician Routine Consulting Provider: [facility] Consult Reason/Comments: Post Interventional Patient Do you want consulting provider notified?: Already Contacted Primary care physician: Remington Carrion Hospital Course: Discharge Diagnosis: Acute inferior STEMI status post PCI to proximal and distal RCA Multivessel CAD Tobacco dependence Hospital Course: 58-year-old male with no significant past medical history presenting with chest discomfort. In the ED, temperature was 98.2, blood pressure 159/87, respiratory rate 16, pulse 67, saturating 100% on room air. EKG shows inferior STEMI.. Chest x-ray shows no acute process. Laboratory workup shows unremarkable CBC, unremarkable CMP, initial troponin 0.022. He is now status post stent 2. Left heart cath showed 70% proximal RCA, 99% distal RCA, mid LAD 90%, left main 30% stenosis. Patient is currently on aspirin, statin, and effient. Will need staged PCI for LAD in the next couple of weeks. Echocardiogram showed LVEF 55- 60%. Patient seen and examined at bedside. Vital signs reviewed and stable. General: nontoxic, no distress, appears at stated age Derm: warm, dry Head: atraumatic, normocephalic, symmetric Eyes: EOMI, no lid lag, anicteric sclera Mouth: no lip lesion, mucus membranes moist Cardiovascular: S1S2 reg, no murmur Lungs: CTA bilateral, no rhonchi, no rales , no accessory muscle use Abdominal: soft, nontender to palpation, no guarding, no appreciable organomegaly Ext: no gross muscle atrophy, no edema, no contractures Neuro: CN II-XI grossly intact, no focal neuro deficits Psych: Alert, oriented, appropriate affect A total of 36 minutes of time were spent preparing this complex discharge summary. Patient was discharged on 03/27/23 at 12:38. Patient Condition at Discharge: Stable Plan - Discharge Summary Discharge Rx Participant: Yes New Discharge Prescriptions: New Aspirin 81 mg PO DAILY #90 tab Atorvastatin [Lipitor] 80 mg PO DAILY #90 tab Metoprolol Succinate (ER) [Toprol XL] 25 mg PO DAILY #90 tab Prasugrel [Effient] 10 mg PO DAILY #90 tab Isosorbide Mononitrate ER [Imdur] 30 mg PO DAILY #90 tab Discharge Medication List Aspirin 81 mg PO DAILY #90 tab 03/27/23 [Rx] Atorvastatin [Lipitor] 80 mg PO DAILY #90 tab 03/27/23 [Rx] Isosorbide Mononitrate ER [Imdur] 30 mg PO DAILY #90 tab 03/27/23 [Rx] Metoprolol Succinate (ER) [Toprol XL] 25 mg PO DAILY #90 tab 03/27/23 [Rx] Prasugrel [Effient] 10 mg PO DAILY #90 tab 03/27/23 [Rx] Follow up Appointment(s)/Referral(s): Remington Carrion MD [Primary Care Provider] - 1-2 days Albino Garcia DO [STAFF PHYSICIAN] - 1 Week Patient Instructions/Handouts: Heart Attack (DC), Heart Healthy Diet (DC) Activity/Diet/Wound Care/Special Instructions: Please see your PCP and operative supervisor. Discharge Disposition: HOME SELF-CARE
[2023-03-27 13:15] VITALS: PULSE 65; RESP 12
--- NOTE | 2023-03-27 22:41 | PN ---
PROGRESS NOTE SUBJECTIVE: A 58-year-old gentleman, who is admitted to hospital with acute myocardial infarction and underwent cardiac catheterization and angioplasty of right coronary artery. The patient has significant disease involving the LAD and a 30% distal left main stenosis. The patient at the time of my evaluation appears comfortable at rest and is free of symptoms, ambulating without any issues, and is anxious to go home. His coronary anatomy revealed that the circumflex coronary artery is free of disease. Left main shows a 30% stenosis. LAD shows a long area of 50% stenosis involving the diagonal branch and a 90% stenosis involving the LAD. I spoke to Dr. Garcia, the primary engraver apprentice decorative and the remnants cutter on the case. He wishes to do the intervention on the LAD a week from now, and the patient can go home and follow up with him. An echocardiogram on this admission revealed normal LV function. MEDICATIONS: The patient is on: 1. Aspirin. 2. Lipitor. I added: 1. Imdur 30 mg daily. 2. Sublingual nitroglycerin on p.r.n. basis. 3. Toprol-XL. 4. Effient. OBJECTIVE: GENERAL: Comfortable at rest. VITAL SIGNS: Stable. NECK: There is no jugular venous distention. Carotid upstroke is normal. There is no bruit. CHEST: Reveals good air entry bilaterally. HEART: Reveals first and second heart sounds. No gallop. EXTREMITIES: Did not reveal any edema. Peripheral pulses are felt. ASSESSMENT AND PLAN: Acute coronary syndrome, status post catheterization and angioplasty of right coronary artery. The patient will undergo staged angioplasty of the left anterior descending in a week's time by Dr. Garcia. He will follow up with him sometime this week. MMODL / IJN: [id number] /
== END 2023-03-27 13:52 | disposition home or self-care, planned readmission (81) | DRG 247 ==
LOC: CATHCVL 13:39 → 2SICU 14:21
PROVIDERS: ADMIT Student in an Organized Health Care Education/Training Program; ATTEND Student in an Organized Health Care Education/Training Program
PROC: 027035Z Dilation of Coronary Artery, One Artery with Two Drug-eluting Intraluminal Devices, Percutaneous Approach (ICD-10-PCS; principal; 2023-03-24 16:00)
PROC: B240ZZ3 Ultrasonography of Single Coronary Artery, Intravascular (ICD-10-PCS; 2023-03-24 16:00)
PROC: B2111ZZ Fluoroscopy of Multiple Coronary Arteries using Low Osmolar Contrast (ICD-10-PCS; 2023-03-24 16:00)
PROC: 02C03ZZ Extirpation of Matter from Coronary Artery, One Artery, Percutaneous Approach (ICD-10-PCS; 2023-03-24 16:00)
DX: I21.19 ST elevation (STEMI) myocardial infarction involving other coronary artery of inferior wall (principal); I25.10 Atherosclerotic heart disease of native coronary artery without angina pectoris; E78.5 Hyperlipidemia, unspecified; F17.220 Nicotine dependence, chewing tobacco, uncomplicated; I10 Essential (primary) hypertension; K21.9 Gastro-esophageal reflux disease without esophagitis; Z79.82 Long term (current) use of aspirin; Z79.899 Other long term (current) drug therapy; Z82.49 Family history of ischemic heart disease and other diseases of the circulatory system
CPT/HCPCS: 71045; 80048; 80053; 80061; 83036; 83735; 84443; 84484; 85025; 85610; 85730; 92973; 92978; 93005; 93306; 93454; 94760; 96374; 99285

== ENCOUNTER 2023-04-12 06:31 | Day surgery (SDC) | payer BC ==
[~2023-04-12 06:31] MED LIST changes: +ALPRAZolam 0.25 MG TAB PO PRN; +ALPRAZolam 0.5 MG TAB PO PRN; +ASPIRIN 325 MG TAB PO STA; +ATORVASTATIN 80 MG TAB PO STA; +HEPARIN SODIUM,PORCINE 10,000 UNIT in SODIUM CHLORIDE 0.9% 1,000 ML IRRIGATION PRN; +HEPARIN SODIUM,PORCINE 2,500 UNIT in SODIUM CHLORIDE 0.9% 250 ML IRRIGATION PRN; -LACTATED RINGERS 1,000 ML IV SCH; +NITROGLYCERIN SL TABS 0.4 MG TAB SUBLINGUAL PRN
[2023-04-12] MEDS: SODIUM CHLORIDE 0.9% 1,000 ML in EMPTY BAG 1 BAG IV SCH ×2 (06:55→19:48)
[2023-04-12] MEDS ORDERED: VERAPAMIL 2.5 MG/ML 2 ML AMP ONE (07:22)
[2023-04-12] MEDS ORDERED: fentaNYL (PF) 50 MCG/ML 2 ML AMP ONE (07:31)
[2023-04-12] MEDS ORDERED: fentaNYL (PF) 50 MCG/ML 2 ML AMP IV ONE (07:36)
[2023-04-12] MEDS ORDERED: MIDAZOLAM 2 MG/2 ML VIAL IV ONE (07:36)
[2023-04-12] MEDS ORDERED: LIDOCAINE 1% INJ 10MG/ML (5 ML VIAL-PF) SQ ONE (07:36)
[2023-04-12] MEDS ORDERED: VERAPAMIL SYRINGE (5 MG/10 ML) INTRAARTER ONE (07:38)
[2023-04-12] MEDS ORDERED: HEPARIN SODIUM 1,000 UN/ML (10ML VL) ONE (07:40)
[2023-04-12] MEDS: HEPARIN SODIUM 1,000 UN/ML (10ML VL) IV ONE ×4 (07:40→09:02)
[2023-04-12] MEDS: NITROGLYCERIN 1000MCG/10ML SYRINGE INTRACORON ONE ×2 (08:34→08:59)
[2023-04-12] MEDS ORDERED: IOPAMIDOL-370 100ML BTL INJ ONE ×2 (08:47→09:02)
[2023-04-12] MEDS ORDERED: RX INFO: IV CONTRAST WAS GIVEN 1 EACH MISC MISCELLANE PRN (09:33)
[2023-04-12] MEDS ORDERED: ZOLPIDEM 5 MG TAB PO PRN (09:33)
[2023-04-12] MEDS ORDERED: ATROPINE SULFATE 0.1 MG/ML 10ML SYRINGE IV PRN (09:33)
[2023-04-12] MEDS ORDERED: MAG HYDROX/AL HYDROX/SIMETH 30 ML CUP PO PRN (09:33)
--- NOTE | 2023-04-12 12:44 | P.PRCINT ---
Percutaneous Coronary Int. - Percutaneous Coronary Intervention Percutaneous Coronary Intervention: PROCEDURES PERFORMED: Left heart catheterization, bilateral coronary angiography, IVUS LAD, CSI rotational atherectomy LAD, PCI proximal to mid LAD with overlapping 3.0 x 38mm and 2.25 x 28mm Xience EDWARD, post dilated with a 3.5 NC balloon, kissing balloon angioplasty LAD/diagonal 2 branch with 3.0 and 2.25 NC balloons respectively INDICATION: Staged PCI CONSENT:I have discussed the risks, benefits and alternative therapies for the above-mentioned procedure and for both sedation/analgesia as well as necessary blood product administration, if indicated, as they pertain to this patient. The patient has indicated understanding and acceptance of the risks and procedures discussed. PROCEDURE: After the risks, benefits and alternatives of the above mentioned procedure explained in detail with the patient, informed consent was obtained. Patient was taken to the catheterization lab and prepped and draped in usual fashion. 1% lidocaine was used to anesthetize the right radial artery. A 6- Slovak sheath was placed in the right radial artery using modified Seldinger technique. RCA angiography was performed with a 5Fr FR5 catheter. The FR5 was advanced into the LV and pressure measurements were obtained. The decision was made to perform PCI of the LAD. Heparin was given. A 0.014 Viper wire was advanced into the distal LAD. CSI rotational atherectomy was performed given diffuse calcified arteries. There was dissection noted of the mid to distal LAD. IVUS was performed which showed reference vessel 2.25mm distally and 3.5mm proximal LAD. There did not appear to be much disease of the ostial diagonal branch and therefore provisional stenting was recommended. Predilation was performed with a 2.5 NC balloon then with a 3.0 NC balloon. Next a 2.25 x 28mm Xience EDWARD was placed in the mid to distal LAD. There was jailing of a very small caliber diagonal 3 branch and patient did have small amount of chest pain. Next a 3.0 x 38mm Xience EDWARD was deployed from the proximal to mid LAD. There was significant impingement of the jailed moderate caliber diagonal 2 branch. Therefore an additional 0.014 whisper wire was advanced into the diagonal 2 branch. Predilation was performed with a 2.0 x 12mm balloon, then kissing balloon angioplasty was performed with a 3.0 x 12mm NC balloon in LAD and a 2.25 x 12mm NC balloon in the diagonal 2 branch. Post dilation was performed of the mid and proximal portion of the 3.0 x 38mm stent with a 3.5 NC balloon. Final IVUS showed excellent stent apposition, no dissection and good stent apposition. The wire was pulled and final angiograms were performed. Pre intervention there was a 90% mid LAD stenosis and post intervention there was < 10% stenosis. The right radial sheath was removed and a TR band was placed with hemostasis achieved. The patient tolerated the procedure well. Patient was transported back to the post catheterization holding area in stable condition. Conscious Sedation: Patient was monitored under the direct supervision of myself for conscious sedation using Versed and fentanyl for a total duration of 90 minutes HEMODYNAMICS: Aorta: 122/71 LV: 128/5, LVEDP 13 SELECTIVE CORONARY ARTERIOGRAPHY: LEFT MAIN: The left main is a large caliber vessel which bifurcates into the LAD and circumflex. There is distal left main 30% stenosis. LEFT ANTERIOR DESCENDING CORONARY ARTERY: LAD is a large caliber vessel which wraps around to the apex. There is mild 30% proximal LAD stenosis and then long area of 50% stenosis involving a moderate caliber diagonal branch and then a mid LAD 90% stenosis. LEFT CIRCUMFLEX CORONARY ARTERY: Left circumflex is a moderate caliber vessel with mild luminal irregularities. RIGHT CORONARY ARTERY: The right coronary artery is a large caliber vessel which gives off a PDA and PLV branch and is the dominant vessel. There is a patent proximal and mid RCA stents with additional mid RCA 30% stenosis. PLV has a 50% mid stenosis. FINAL IMPRESSION: 1. CAD as described above including 30% mid RCA, mid LAD 90% and left main 30% stenosis 2. S/p CSI rotational atherectomy LAD, PCI proximal to mid LAD with overlapping 3.0 x 38mm and 2.25 x 28mm Xience EDWARD, post dilated with a 3.5 NC balloon, kissing balloon angioplasty LAD/diagonal 2 branch with 3.0 and 2.25 NC balloons respectively PLAN: 1. Aggressive risk factor modification per most recent ACC/AHA guidelines. 2. Continue dual antiplatelets with aspirin and Effient for 12 months.
[2023-04-12 14:15] VITALS: BMI 29.3
[2023-04-12] MEDS: PANTOPRAZOLE 40 MG TABLET PO SCH (17:47)
[2023-04-12 23:36] VITALS: RESP 15
[2023-04-13] MEDS: PANTOPRAZOLE 40 MG TABLET PO SCH (06:12)
[2023-04-13 07:26] VITALS: BP 127/73; PULSE 68; TEMP 97.6
[2023-04-13] MEDS ORDERED: PANTOPRAZOLE 40 MG TABLET PO SCH (07:30)
[2023-04-13] MEDS ORDERED: ASPIRIN 81 MG PO SCH (09:00)
[2023-04-13] MEDS ORDERED: ISOSORBIDE MONONITRATE ER 30 MG TAB.ER.24H PO SCH (09:00)
[2023-04-13] MEDS ORDERED: ATORVASTATIN 80 MG TAB PO SCH (09:00)
[2023-04-13] MEDS ORDERED: METOPROLOL SUCCINATE (ER) 25 MG TAB.ER.24H PO SCH (09:00)
[2023-04-13] MEDS ORDERED: lisinopriL 5 MG TAB PO SCH (09:00)
[2023-04-13] MEDS ORDERED: PRASUGREL 10 MG TAB PO SCH (09:00)
[2023-04-13 09:15] LABS: Basophils % (A) 1 %; Eosinophils # (A) 0.3 k/uL (0-0.7); Eosinophils % (A) 6 %; HCT 40.9 % (39.0-53.0); HGB 13.7 gm/dL (13.0-17.5); Lymphocytes # (A) 0.6 k/uL (1.0-4.8); Lymphocytes % (A) 15 %; MCH 30.1 pg (25.0-35.0); MCHC 33.6 g/dL (31.0-37.0); MCV 89.4 fL (80.0-100.0); Monocytes # (A) 0.3 k/uL (0-1.0); Monocytes % (A) 6 %; Neutrophils % (A) 71 %; Platelet Count 166 k/uL (150-450); RBC 4.57 m/uL (4.30-5.90); RDW 13.3 % (11.5-15.5); WBC 4.3 k/uL (3.8-10.6)
[2023-04-13 09:44] LABS: African American GFR (CKD) >90 (>60 ml/min/1.73 sqM); Anion Gap 8 mmol/L; Blood Urea Nitrogen 8 mg/dL (9-20); Carbon Dioxide 23 mmol/L (22-30); Chloride 107 mmol/L (98-107); Glucose 81 mg/dL (74-99); Non-African American GFR(CKD) >90 (>60 ml/min/1.73 sqM); Potassium 4.2 mmol/L (3.5-5.1); Sodium 138 mmol/L (137-145)
--- NOTE | 2023-04-13 12:30 | P.DS ---
Providers Attending physician: Albino Garcia DO Consults: 04/12/23 09:33 Consult Physician Routine Consulting Provider: [facility] Consult Reason/Comments: Post Interventional patient Do you want consulting provider notified?: Already Contacted Primary care physician: Remington Carrion [facility] Course: Patient is a pleasant 58-year-old male with history of CAD with prior inferior STEMI who presented for staged PCI of his LAD. Patient underwent PCI of LAD with atherectomy and kissing balloon angioplasty of diagonal branch yesterday. He did have mild discomfort during and after the procedure related to small caliber diagonal branch occlusion. He states this improved after a few hours. Currently this morning he denies any chest pain or pressure or shortness breath. Tolerating dual antiplatelets. No significant right radial hematoma. States he feels good and is ready for discharge home. Patient will be discharged home with outpatient follow-up in 1 week. Plan - Discharge Summary Discharge Rx Participant: No New Discharge Prescriptions: No Action Aspirin 81 mg PO DAILY #90 tab Atorvastatin [Lipitor] 80 mg PO DAILY #90 tab Metoprolol Succinate (ER) [Toprol XL] 25 mg PO DAILY #90 tab Prasugrel [Effient] 10 mg PO DAILY #90 tab Isosorbide Mononitrate ER [Imdur] 30 mg PO DAILY #90 tab lisinopriL [Zestril] 5 mg PO DAILY Lansoprazole [Prevacid] 30 mg PO DAILY Discharge Medication List Aspirin 81 mg PO DAILY #90 tab 03/27/23 [Rx] Atorvastatin [Lipitor] 80 mg PO DAILY #90 tab 03/27/23 [Rx] Isosorbide Mononitrate ER [Imdur] 30 mg PO DAILY #90 tab 03/27/23 [Rx] Metoprolol Succinate (ER) [Toprol XL] 25 mg PO DAILY #90 tab 03/27/23 [Rx] Prasugrel [Effient] 10 mg PO DAILY #90 tab 03/27/23 [Rx] Lansoprazole [Prevacid] 30 mg PO DAILY 04/07/23 [History] lisinopriL [Zestril] 5 mg PO DAILY 04/07/23 [History] Follow up Appointment(s)/Referral(s): Albino Garcia DO [STAFF PHYSICIAN] - 1 Week (APPOINTMENT MADE ON MONDAY, April @ 10:45AM ) Patient Instructions/Handouts: Cardiac Rehabilitation (ED), Coronary Intravascular Stent Placement (DC), After Radial Heart Catheterization (GEN) Activity/Diet/Wound Care/Special Instructions: *NO LIFTING, PUSHING, OR PULLING ANYTHING OVER 5P OUNDS FOR 5 DAYS *NO DRIVING FOR 3 DAYS *YOU CAN REMOVE YOUR DRESSING AND SHOWER TOMORROW BUT DO NOT SUBMERSE YOUR PUNCTURE SITE IN WATER FOR A FEW DAYS TO PREVENT INFECTION - SO NO TUB BATHS, POOLS, HOT TUBS, DISHES...ETC *ANY SIGNS OF BLEEDING (HARDNESS, SWELLING, OR EXCESSIVE BRUISING) HOLD DIRECT PRESSURE ON YOUR PUNCTURE SITE AND COME TO THE NEAREST EMERGENCY ROOM TO GET YOUR PUNCTURE SITE LOOKED AT - DO NOT DRIVE YOURSELF! EITHER CALL EMS OR HAVE SOMEONE DRIVE YOU! Discharge Disposition: HOME SELF-CARE
== END 2023-04-13 10:08 | disposition home or self-care (01) ==
LOC: CATHCVL 06:31 → 3SCARD 12:10 → CATHCVL 04-13 10:08
PROVIDERS: ATTEND Internal Medicine
DX: I25.10 Atherosclerotic heart disease of native coronary artery without angina pectoris (principal); Z82.49 Family history of ischemic heart disease and other diseases of the circulatory system; F17.210 Nicotine dependence, cigarettes, uncomplicated; Z79.82 Long term (current) use of aspirin; Z79.899 Other long term (current) drug therapy
CPT/HCPCS: 94760; 92978; 92921; 80048; 85025; 99152; 99153 ×5; C9602; C1769 ×4; C1887 ×2; C1894; C1725 ×5; C1753; C1724; C1874 ×2; J2250; J2001; J3010; J1644; Q9967

== ENCOUNTER → 2023-04-27 | Outpatient (CLI) | payer BC ==
--- NOTE | 2023-04-27 11:18 | US ---
EXAMINATION TYPE: US carotid duplex BILAT DATE OF EXAM: 04/27/2023 COMPARISON: NONE CLINICAL INDICATION: Male, 58 years old with history of I65.29 OCCLUSION AND STENOSIS CAROTID ARTERY; stenosis had stents put in heart last month. TECHNIQUE: Carotid duplex ultrasound examination. Indirect Doppler criteria was utilized. FINDINGS: EXAM MEASUREMENTS: RIGHT: Peak Systolic Velocity (PSV) cm/sec ----- Right CCA: 61.9 ----- Right ICA: 105.5 ----- Right ECA: 109.9 ICA/CCA ratio: 1.7 RIGHT: End Diastole cm/sec ----- Right CCA: 18.3 ----- Right ICA: 35.7 ----- Right ECA: 0 LEFT: Peak Systolic Velocity (PSV) cm/sec ----- Left CCA: 76.4 ----- Left ICA: 102.6 ----- Left ECA: 60 ICA/CCA ratio: 1.3 LEFT: End Diastole cm/sec ----- Left CCA: 18.3 ----- Left ICA: 32.8 ----- Left ECA: 0 VERTEBRALS (direction of flow): Right Vertebral: Antegrade Left Vertebral: Antegrade Rhythm: Normal CAR SUPERVISOR NOTES: No significant stenosis seen IMPRESSION: No evidence for hemodynamically significant stenosis Criteria for Assigning % of Stenosis / Diameter reduction (Estimation based on the indirect measurements of the internal carotid artery velocities (ICA PSV). 1. Normal (no stenosis)=ICA PSV < 125 cm/s: ratio < 2.0: ICA EDV<40 cm/s. 2. Less than 50% stenosis=ICA PSV < 125 cm/s: ratio < 2.0: ICA EDV<40 cm/s. 3. 50 to 69% stenosis=ICA PSV of 125 to 230 cm/s: ration 2.0 ? 4.0: ICA EDV 40-100 cm/s. 4. Greater than 70% stenosis to near occlusion= ICA PSV > 230 cm/s: ratio > 4.0: ICA EDV > 100 cm/s. 5. Near occlusion= ICA PSV velocities may be low or undetectable: variable ratio and ICA EDV. 6. Total occlusion=unable to detect flow.
== END | disposition home or self-care (01) ==
LOC: RADUSWWP 10:41
PROVIDERS: ATTEND Family Medicine
DX: I65.29 Occlusion and stenosis of unspecified carotid artery (principal); Z95.5 Presence of coronary angioplasty implant and graft
CPT/HCPCS: 93880

== ENCOUNTER → 2023-07-27 | Outpatient (CLI) | payer BC ==
[2023-07-27 15:08] LABS: ALT 22 U/L (10-49); AST 25 U/L (14-35); LDL Cholesterol,Calculated 36.4 mg/dL (0.0-131.0)
== END | disposition home or self-care (01) ==
LOC: LABWHC1 08:09
PROVIDERS: ATTEND Internal Medicine
DX: E78.2 Mixed hyperlipidemia (principal)
CPT/HCPCS: 36415; 80061; 84450; 84460

== ENCOUNTER → 2024-02-15 | Outpatient (CLI) | payer BC ==
[2024-02-15 14:53] LABS: ALT 41 U/L (10-49); AST 36 U/L (14-35); Chol/HDL Ratio 2.36 Ratio; LDL Cholesterol,Calculated 57.2 mg/dL (0.0-131.0); VLDL Calculation 17.82 mg/dL (5.00-40.00)
== END | disposition home or self-care (01) ==
LOC: LABWHC1 08:02
PROVIDERS: ATTEND Internal Medicine
DX: E78.2 Mixed hyperlipidemia (principal)
CPT/HCPCS: 36415; 80061; 84450; 84460

== ENCOUNTER → 2025-02-25 | Outpatient (CLI) | payer BC ==
[2025-02-26 06:34] LABS: Apolipoprotein A1 151 mg/dL (110 - 205)
== END | disposition home or self-care (01) ==
LOC: LABWHC1 07:06
PROVIDERS: ATTEND Internal Medicine
DX: E78.2 Mixed hyperlipidemia (principal); I25.10 Atherosclerotic heart disease of native coronary artery without angina pectoris
CPT/HCPCS: 36415; 82172; 83695

== ENCOUNTER → 2025-04-21 | Outpatient (CLI) | payer BC ==
--- NOTE | 2025-04-21 16:29 | XR ---
EXAMINATION TYPE: XR chest 2V DATE OF EXAM: 04/21/2025 4:25 PM COMPARISON: Chest radiographs from 03/24/2023, CT chest 04/09/2025 TECHNIQUE: XR chest 2V Frontal and lateral views of the chest. CLINICAL INDICATION:Male, 60 years old with history of Z01.818; FINDINGS: Lungs/Pleura: There is no evidence of pleural effusion, focal consolidation, or pneumothorax. Pulmonary vascularity: Unremarkable. Heart/mediastinum: Cardiomediastinal silhouette is unremarkable. Musculoskeletal: No acute osseous pathology. IMPRESSION: No acute cardiopulmonary disease/process. [facility], , 04/21/2025 4:27 PM
== END | disposition home or self-care (01) ==
LOC: RADXRMAIN 16:13
PROVIDERS: ATTEND Surgery
DX: Z01.818 Encounter for other preprocedural examination (principal)
CPT/HCPCS: 71046

== ENCOUNTER → 2025-04-25 | Outpatient (CLI) | payer BC ==
[2025-04-25 08:56] LABS: INR 0.9 (<1.2); Partial Thromboplastin Time 23.2 sec (22.0-30.0); Prothrombin Time 10.2 sec (10.0-12.5)
[2025-04-25 15:04] LABS: HGB 15.9 g/dL (13.0-17.0); MCH 30.3 pg (27.0-32.0); MCHC 33.1 g/dL (32.0-37.0); MCV 91.4 FL (80.0-97.0); Mean Platelet Volume 9.5 FL (9.5-12.2); NRBC Per 100 WBC 0 X 10*3/uL (0.00-0.01); Platelet Count 233 X 10*3/uL (140-440); RBC 5.25 X 10*6/uL (4.40-5.60); RDW 12.5 % (11.5-14.5); WBC 5.36 X 10*3/uL (4.50-10.00)
[2025-04-25 15:31] LABS: ALT 40 U/L (10-49); AST 35 U/L (14-35); Albumin 4.6 g/dL (3.8-4.9); Albumin/Globulin Ratio 1.77 Ratio (1.60-3.17); Alkaline Phosphatase 77 U/L (41-126); Blood Urea Nitrogen 11.1 mg/dL (9.0-27.0); Calcium 9.9 mg/dL (8.7-10.3); Carbon Dioxide 24.6 mmol/L (21.6-31.8); Chloride 104 mmol/L (96-109); Globulin 2.6 g/dL (1.6-3.3); Glucose 102 mg/dL (70-110); Potassium 4.7 mmol/L (3.5-5.5); Sodium 138 mmol/L (135-145); Total Bilirubin 1.8 mg/dL (0.3-1.2); Total Protein 7.2 g/dL (6.2-8.2)
== END | disposition home or self-care (01) ==
LOC: LABWHC1 08:02
PROVIDERS: ATTEND Surgery
DX: Z01.810 Encounter for preprocedural cardiovascular examination (principal)
CPT/HCPCS: 36415; 80053; 85027; 85610; 85730; 86850; 86900; 86901; 86920; 87070

== ENCOUNTER 2025-04-28 05:35 | Inpatient (IN) | payer BC ==
[2025-04-28] MEDS: IV FLUID CONTINUATION 1,000 ML IV ONE (06:05)
--- NOTE | 2025-04-28 06:21 | P.PN ---
Progress Note - Text Progress Note Date: 04/28/25 5 meter walk test completed without difficulty: #1 2.01 sec #2 2.45 sec #3 2.41 sec
[2025-04-28] MEDS: ATORVASTATIN 10 MG TAB PO ONE (06:26)
[2025-04-28] MEDS: METOPROLOL TARTRATE 12.5 MG TAB PO ONE (06:26)
[2025-04-28] MEDS: LACTATED RINGERS 1,000 ML IV ONE (06:29)
[2025-04-28] MEDS ORDERED: PROPOFOL 10 MG/ML 20 ML VIAL IV ONE (07:47)
[2025-04-28] MEDS ORDERED: PROTAMINE SULFATE 10 MG/ML 25 ML VIAL IV ONE (07:47)
[2025-04-28] MEDS ORDERED: LIDOCAINE 2% SYG (PF) 100 MG/5 ML ONE (07:47)
[2025-04-28] MEDS ORDERED: fentaNYL (PF) 50 MCG/ML 50 ML VIAL ONE (07:47)
[2025-04-28] MEDS ORDERED: MIDAZOLAM HCL 10 MG/10 ML VIAL ONE (07:47)
[2025-04-28] MEDS ORDERED: TRANEXAMIC 1,000 MG/100ML-NACL PREMIX BAG ONE (07:47)
[2025-04-28] MEDS ORDERED: ALBUMIN HUMAN 5% (25gm) 500 ML VIAL IVPB ONE (07:47)
[2025-04-28] MEDS ORDERED: VECURONIUM 10 MG VIAL IV ONE (07:47)
[2025-04-28] MEDS ORDERED: PHENYLEPHRINE 10 MG/ML VIAL ONE (07:47)
[2025-04-28] MEDS ORDERED: ATROPINE SULFATE 0.1 MG/ML 10ML SYRINGE ONE (07:47)
[2025-04-28] MEDS: SODIUM CHLORIDE 0.9% 50 ML with ceFAZolin 2,000 MG IV ONE (08:00)
[2025-04-28 08:40] LABS: ABG Base Excess -2.5 mmol/L; ABG Glucose Whole Blood 113 mg/dL (75-99); ABG HCO3 22 mmol/L (21-25); ABG Hematocrit 39 % (34.0-46.0); ABG Ionized Calcium 4.8 mg/dL (4.5-5.3); ABG Lactic Acid Whole Blood 0.8 mmol/L (0.5-1.6); ABG Oxygen Saturation >99.4 % (94-97); ABG PCO2 38 mmHg (35-45); ABG PH 7.38 (7.35-7.45); ABG Potassium Whole Blood 3.9 mmol/L (3.4-4.5); ABG Sodium Whole Blood 140 mmol/L (135-146); Allen Test Performed? Yes
[2025-04-28] MEDS: SODIUM CHLORIDE 0.9% 500 ML 500 ML with HEPARIN SODIUM,PORCINE (1 ML) 5,000 UNIT IV ONE (09:20)
[2025-04-28] MEDS: ceFAZolin 1,000 MG in SODIUM CHLORIDE 0.9% 1,000 ML IRRIGATION ONE (09:21)
[2025-04-28] MEDS: PAPAVERINE 360 MG in SODIUM CHLORIDE 0.9% 90 ML IV ONE (09:21)
[2025-04-28 10:10] LABS: ABG Base Excess -4.4 mmol/L; ABG Glucose Whole Blood 128 mg/dL (75-99); ABG HCO3 22 mmol/L (21-25); ABG Hematocrit 30 % (34.0-46.0); ABG Ionized Calcium 4.6 mg/dL (4.5-5.3); ABG Lactic Acid Whole Blood 0.9 mmol/L (0.5-1.6); ABG Oxygen Saturation 98.6 % (94-97); ABG PCO2 45 mmHg (35-45); ABG PH 7.29 (7.35-7.45); ABG PO2 163 mmHg (83-108); ABG Potassium Whole Blood 3.8 mmol/L (3.4-4.5); ABG Sodium Whole Blood 138 mmol/L (135-146); ABG TCO2 21 mmol/L (19-24); Allen Test Performed? Yes
[2025-04-28 11:10] LABS: ABG Base Excess -4.5 mmol/L; ABG Glucose Whole Blood 131 mg/dL (75-99); ABG HCO3 21 mmol/L (21-25); ABG Oxygen Saturation >99.4 % (94-97); ABG PCO2 38 mmHg (35-45); ABG PH 7.35 (7.35-7.45); ABG Sodium Whole Blood 134 mmol/L (135-146); Allen Test Performed? Yes
[2025-04-28 11:44] LABS: ABG Base Excess -1.4 mmol/L; ABG Glucose Whole Blood 151 mg/dL (75-99); ABG HCO3 24 mmol/L (21-25); ABG Lactic Acid Whole Blood 1.2 mmol/L (0.5-1.6); ABG Oxygen Saturation >99.4 % (94-97); ABG PCO2 41 mmHg (35-45); ABG PH 7.37 (7.35-7.45); ABG PO2 373 mmHg (83-108); ABG Potassium Whole Blood 4.4 mmol/L (3.4-4.5); ABG Sodium Whole Blood 137 mmol/L (135-146); Allen Test Performed? Yes
--- NOTE | 2025-04-28 11:57 | P.ANPRN ---
Procedure Note - Anesthesia - Invasive Line Right Central Line Time Out Performed: Yes Date of Procedure: 04/28/25 Time of Procedure: 07:29 Location of Patient: PreOp Preparation: Sterile Prep, Sterile Dressing Central Line Location: Internal Jugular Ultrasound Used: No Purpose - Visualization and Identification of Vasculature: No Image Stored and Saved: No Narrative: Invasive line placement per sterile protocol utilized.
--- NOTE | 2025-04-28 11:58 | P.ANPRN ---
Procedure Note - Anesthesia - Invasive Line Right [place] Su Time Out Performed: Yes Date of Procedure: 04/28/25 Time of Procedure: 07:44 Location of Patient: PreOp Preparation: Sterile Prep, Sterile Dressing Central Line Location: Internal Jugular Ultrasound Used: No Purpose - Visualization and Identification of Vasculature: No Image Stored and Saved: No Narrative: Invasive line placement per sterile protocol utilized.
[2025-04-28 12:11] LABS: ABG Base Excess -2.2 mmol/L; ABG Glucose Whole Blood 160 mg/dL (75-99); ABG HCO3 23 mmol/L (21-25); ABG Ionized Calcium 4.1 mg/dL (4.5-5.3); ABG Lactic Acid Whole Blood 1.3 mmol/L (0.5-1.6); ABG Oxygen Saturation >99.4 % (94-97); ABG PCO2 41 mmHg (35-45); ABG PH 7.36 (7.35-7.45); ABG PO2 349 mmHg (83-108); ABG Potassium Whole Blood 4.3 mmol/L (3.4-4.5); ABG Sodium Whole Blood 138 mmol/L (135-146); Allen Test Performed? Yes
[2025-04-28 12:48] LABS: ABG Base Excess -2.5 mmol/L; ABG Glucose Whole Blood 155 mg/dL (75-99); ABG HCO3 23 mmol/L (21-25); ABG Ionized Calcium 4.1 mg/dL (4.5-5.3); ABG Lactic Acid Whole Blood 1.4 mmol/L (0.5-1.6); ABG Oxygen Saturation 99.2 % (94-97); ABG PCO2 43 mmHg (35-45); ABG PH 7.34 (7.35-7.45); ABG PO2 381 mmHg (83-108); ABG Potassium Whole Blood 4.5 mmol/L (3.4-4.5); ABG Sodium Whole Blood 139 mmol/L (135-146); ABG TCO2 22 mmol/L (19-24); Allen Test Performed? Yes
[2025-04-28 13:08] LABS: ABG PO2 >420 mmHg (83-108)
[2025-04-28 13:09] LABS: ABG Hematocrit 23 % (34.0-46.0); ABG PO2 >420 mmHg (83-108)
[2025-04-28 13:10] LABS: ABG Hematocrit 23 % (34.0-46.0)
[2025-04-28 13:11] LABS: ABG Hematocrit 24 % (34.0-46.0)
[2025-04-28 13:12] LABS: ABG Hematocrit 24 % (34.0-46.0)
[2025-04-28 13:22] LABS: ABG Base Excess -3.1 mmol/L; ABG Glucose Whole Blood 179 mg/dL (75-99); ABG HCO3 23 mmol/L (21-25); ABG Ionized Calcium 4.1 mg/dL (4.5-5.3); ABG Lactic Acid Whole Blood 1.6 mmol/L (0.5-1.6); ABG Oxygen Saturation 99.3 % (94-97); ABG PCO2 43 mmHg (35-45); ABG PH 7.33 (7.35-7.45); ABG PO2 345 mmHg (83-108); ABG Potassium Whole Blood 4.5 mmol/L (3.4-4.5); ABG Sodium Whole Blood 138 mmol/L (135-146); ABG TCO2 22 mmol/L (19-24)
[2025-04-28] MEDS: ALBUMIN HUMAN 25% 50 ML IV ONE (14:14)
[2025-04-28] MEDS: ALBUMIN HUMAN 5% 500 ML IVPB ONE (14:14)
[2025-04-28 14:17] LABS: ABG Base Excess -3.5 mmol/L; ABG Glucose Whole Blood 170 mg/dL (75-99); ABG HCO3 23 mmol/L (21-25); ABG Hematocrit 27 % (34.0-46.0); ABG Ionized Calcium 4.7 mg/dL (4.5-5.3); ABG Lactic Acid Whole Blood 1.5 mmol/L (0.5-1.6); ABG Oxygen Saturation 99.3 % (94-97); ABG PCO2 45 mmHg (35-45); ABG PH 7.31 (7.35-7.45); ABG PO2 316 mmHg (83-108); ABG Potassium Whole Blood 3.9 mmol/L (3.4-4.5); ABG Sodium Whole Blood 140 mmol/L (135-146); ABG TCO2 22 mmol/L (19-24)
[2025-04-28 14:33] LABS: ABG Hematocrit 23 % (34.0-46.0)
[2025-04-28] MEDS ORDERED: Magnesium Replacement Protocol 1 EACH MISC MISCELLANE PRN (14:36)
[2025-04-28] MEDS ORDERED: ONDANSETRON 4 MG/2 ML VIAL IVP PRN (14:36)
[2025-04-28] MEDS ORDERED: CLEVIDIPINE BUTYRATE 25 MG in EMPTY BAG 1 BAG IV PRN (14:36)
[2025-04-28] MEDS ORDERED: AMIODARONE 360 MG in DEXTROSE 5% IN WATER 200 ML IV PRN (14:36)
[2025-04-28] MEDS ORDERED: DEXTROSE 5% IN WATER 100 ML with AMIODARONE 150 MG IV PRN (14:36)
[2025-04-28] MEDS ORDERED: IPRATROPIUM-ALBUTEROL 3 ML NEB INHALATION PRN (14:36)
[2025-04-28] MEDS ORDERED: hydrALAZINE HCL 20 MG/ML 1 ML VIAL IVP PRN (14:36)
[2025-04-28] MEDS ORDERED: AMIODARONE 450 MG in DEXTROSE 5% IN WATER 250 ML IV PRN (14:36)
[2025-04-28] MEDS ORDERED: Potassium Replacement Protocol 1 EACH MISC MISCELLANE PRN (14:36)
[2025-04-28] MEDS ORDERED: DEXTROSE 50% SYRINGE 50 ML IVP PRN ×2 (14:36)
[2025-04-28] MEDS ORDERED: MORPHINE SULFATE 2 MG/ML SYRINGE IVP PRN (14:36)
[2025-04-28] MEDS ORDERED: BENZOCAINE/MENTHOL LOZENG 1 EACH LOZENGE MUCOUS MEM PRN (14:36)
[2025-04-28] MEDS: ceFAZolin 1,000 MG in SODIUM CHLORIDE 0.9% IRRIGATIO 1,000 ML IRRIGATION ONE (14:39)
[2025-04-28] MEDS: ceFAZolin 2 GM in DEXTROSE 5% IN WATER 50 ML IVPB ONE ×2 (14:39)
[2025-04-28] MEDS: CHLORHEXIDINE GLUCONATE 15 ML CUP MUCOUS MEM ONE (14:39)
[2025-04-28] MEDS: ASPIRIN 325 MG TAB PO ONE (14:39)
[2025-04-28] MEDS: CALCIUM CHLORIDE 100 MG/ML 10 ML SYRINGE IV ONE (14:39)
[2025-04-28] MEDS: ELECTROLYTE-A SOLUTION 1,000 ML with POTASSIUM CHLORIDE 100 MEQ, MAGNESIUM SULFATE 16 M... IV ONE (14:40)
[2025-04-28] MEDS: CLEVIDIPINE BUTYRATE 25 MG in EMPTY BAG 1 BAG IV ONE (14:40)
[2025-04-28] MEDS: ELECTROLYTE-A SOLUTION 1,000 ML with POTASSIUM CHLORIDE 40 MEQ, MAGNESIUM SULFATE 16 ME... IV ONE (14:40)
[2025-04-28] MEDS: DILTIAZEM 125 MG in DEXTROSE 5% IN WATER 100 ML IV ONE (14:40)
[2025-04-28] MEDS: SODIUM CHLORIDE 0.9% 1,000 ML IV SCH (15:10)
[2025-04-28] MEDS: NITROGLYCERIN-D5W PMX 50 MG in DEXTROSE/WATER 1 250ML.BAG IV SCH (15:10)
[2025-04-28 15:14] LABS: Glucose,Whole Blood 133 mg/dL (70-110)
[2025-04-28 15:22] LABS: ABG Base Excess -2.2 mmol/L; ABG HCO3 23 mmol/L (21-25); ABG Oxygen Saturation >100.0 % (94-97); ABG PCO2 40 mmHg (35-45); ABG PH 7.37 (7.35-7.45); ABG TCO2 24 mmol/L (19-24); Allen Test Performed? Yes
[2025-04-28 15:26] LABS: ABG PO2 >420 mmHg (83-108)
--- NOTE | 2025-04-28 15:28 | XR ---
EXAMINATION TYPE: XR chest 1V portable DATE OF EXAM: 04/28/2025 3:23 PM COMPARISON: Chest radiographs from 04/21/2025 CLINICAL INDICATION: Male, 60 years old with history of Post Operative Cardiac Surgery; [facility] TECHNIQUE: XR chest 1V portable Frontal view of the chest. FINDINGS: Lungs/Pleura: There is no evidence of pleural effusion, focal consolidation, or pneumothorax. Pulmonary vascularity: Unremarkable. Heart/mediastinum: Cardiomediastinal silhouette is unremarkable. Musculoskeletal: No acute osseous pathology. Other findings: None Lines/Tubes: Endotracheal tube with distal tip 6.1 cm above the joslyn. Nasogastric tube with its distal tip and side-port projecting under the diaphragm. There is a Bow-Su catheter with tip projecting over the spine. Left thoracotomy tube is present without evidence of pneumothorax. IMPRESSION: Postsurgical changes with lines and tubes as above. [facility], Workstation: [facility], 04/28/2025 3:26 PM
[2025-04-28] MEDS: INSULIN REGULAR 100 UNIT in SODIUM CHLORIDE 0.9% 100 ML IV SCH (15:35)
[2025-04-28 15:36] LABS: Eosinophils # (A) 0.01 10*3/uL (0.04-0.35); Eosinophils % (A) 0.2 %; HCT 28.4 % (39.6-50.0); Lymphocytes # (A) 0.91 10*3/uL (0.90-5.00); MCH 30.5 pg (27.0-32.0); MCHC 33.8 g/dL (32.0-37.0); MCV 90.2 fL (80.0-97.0); Mean Platelet Volume 9.1 fL (9.5-12.2); Monocytes # (A) 0.13 10*3/uL (0.20-1.00); Monocytes % (A) 2.3 %; Neutrophils # (A) 4.61 10*3/uL (1.80-7.70); Neutrophils % (A) 81.3 %; RBC 3.15 10*6/uL (4.40-5.60); RDW 12.5 % (11.5-14.5); WBC 5.67 10*3/uL (4.50-10.00)
[2025-04-28 15:43] LABS: HGB 9.6 g/dL (13.0-17.0); INR 1.3 (<1.2); Partial Thromboplastin Time 28.5 sec (22.0-30.0); Prothrombin Time 13.6 sec (10.0-12.5)
[2025-04-28 15:50] LABS: Ionized Calcium 4.6 mg/dL (4.5-5.3)
[2025-04-28 16:07] LABS: ALT 17 U/L (4-49); AST 41 U/L (17-59); African American GFR (CKD) >90 (>60 ml/min/1.73 sqM); Albumin 3.2 g/dL (3.5-5.0); Alkaline Phosphatase 26 U/L (38-126); Anion Gap 6 mmol/L; Blood Urea Nitrogen 12 mg/dL (9-20); Calcium 8.3 mg/dL (8.4-10.2); Carbon Dioxide 21 mmol/L (22-30); Chloride 110 mmol/L (98-107); Glucose 131 mg/dL (74-99); Magnesium 2.4 mg/dL (1.6-2.3); Non-African American GFR(CKD) >90 (>60 ml/min/1.73 sqM); Potassium 4.7 mmol/L (3.5-5.1); Sodium 137 mmol/L (137-145); Total Protein 4.9 g/dL (6.3-8.2)
[2025-04-28] MEDS: IPRATROPIUM-ALBUTEROL 3 ML NEB INHALATION SCH ×2 (16:22→19:58)
[2025-04-28 16:24] LABS: Glucose,Whole Blood 139 mg/dL (70-110)
[2025-04-28] MEDS: ceFAZolin 2 GM in DEXTROSE 5% IN WATER 50 ML IVPB SCH (16:43)
[2025-04-28 16:47] LABS: Platelet Count 92 10*3/uL (140-440); Polychromasia Present
[2025-04-28 17:07] LABS: Glucose,Whole Blood 136 mg/dL (70-110)
[2025-04-28] MEDS: HEPARIN SODIUM,PORCINE 5,000 UNIT/ML 1 ML VIAL SQ SCH (17:10)
[2025-04-28] MEDS: ALBUMIN HUMAN 5% 250 ML in EMPTY BAG 1 BAG IVPB PRN (17:36)
[2025-04-28] MEDS: DEXMEDETOMIDINE/0.9% NACL(PMX) 400 MCG in EMPTY BAG 1 BAG IV SCH (18:00)
[2025-04-28 18:06] LABS: Glucose,Whole Blood 147 mg/dL (70-110)
[2025-04-28 18:56] LABS: Glucose,Whole Blood 142 mg/dL (70-110)
[2025-04-28] MEDS: ACETAMINOPHEN IV (For NPO) 1,000 MG in EMPTY BAG 1 BAG IVPB SCH (19:02)
[2025-04-28 19:28] LABS: Basophils # (A) 0.01 10*3/uL (0.00-0.10); Basophils % (A) 0.1 %; Eosinophils # (A) 0.01 10*3/uL (0.04-0.35); Eosinophils % (A) 0.1 %; HCT 29.3 % (39.6-50.0); HGB 9.9 g/dL (13.0-17.0); Lymphocytes % (A) 5.6 %; MCH 30.7 pg (27.0-32.0); MCHC 33.8 g/dL (32.0-37.0); Mean Platelet Volume 9.6 fL (9.5-12.2); Monocytes # (A) 0.52 10*3/uL (0.20-1.00); Monocytes % (A) 7.3 %; Neutrophils # (A) 6.19 10*3/uL (1.80-7.70); Neutrophils % (A) 86.8 %; Platelet Count 112 10*3/uL (140-440); RBC 3.22 10*6/uL (4.40-5.60); RDW 12.7 % (11.5-14.5); WBC 7.14 10*3/uL (4.50-10.00)
[2025-04-28 19:45] LABS: ABG HCO3 24 mmol/L (21-25); ABG Oxygen Saturation 99.9 % (94-97); ABG PCO2 44 mmHg (35-45); ABG PH 7.34 (7.35-7.45); ABG PO2 194 mmHg (83-108); ABG TCO2 25 mmol/L (19-24)
[2025-04-28 19:47] LABS: Allen Test Performed? no
[2025-04-28 20:03] LABS: Glucose,Whole Blood 134 mg/dL (70-110)
[2025-04-28 20:40] LABS: Basophils # (A) 0.01 10*3/uL (0.00-0.10); Basophils % (A) 0.2 %; Eosinophils # (A) 0.01 10*3/uL (0.04-0.35); Eosinophils % (A) 0.2 %; HCT 25.2 % (39.6-50.0); HGB 8.8 g/dL (13.0-17.0); Lymphocytes # (A) 0.28 10*3/uL (0.90-5.00); Lymphocytes % (A) 4.2 %; MCH 31.7 pg (27.0-32.0); MCHC 34.9 g/dL (32.0-37.0); MCV 90.6 fL (80.0-97.0); Mean Platelet Volume 8.9 fL (9.5-12.2); Monocytes # (A) 0.43 10*3/uL (0.20-1.00); Monocytes % (A) 6.5 %; Neutrophils # (A) 5.86 10*3/uL (1.80-7.70); Neutrophils % (A) 88.6 %; RBC 2.78 10*6/uL (4.40-5.60); RDW 12.8 % (11.5-14.5); WBC 6.61 10*3/uL (4.50-10.00)
[2025-04-28] MEDS: SENNOSIDES-DOCUSATE SODIUM 1 EACH TAB PO SCH (21:02)
[2025-04-28 21:10] LABS: Glucose,Whole Blood 131 mg/dL (70-110)
[2025-04-28 21:12] LABS: Platelet Count 88 10*3/uL (140-440); Polychromasia Present
[2025-04-28 22:12] LABS: Glucose,Whole Blood 124 mg/dL (70-110)
[2025-04-28 22:59] LABS: Glucose,Whole Blood 128 mg/dL (70-110)
--- NOTE | 2025-04-28 23:30 | OP ---
OPERATIVE REPORT DATE OF SERVICE : 04/28/2025 PATTERN WEAVER: Fermín Carbajal, Physician Baseball Winder. PREOPERATIVE DIAGNOSES: Triple-vessel coronary artery disease, status post LAD and RCA stenting in 2022, hyperlipidemia, ex-smoker, strong family history, hiatal hernia, preserved left ventricular function. POSTOPERATIVE DIAGNOSES: Triple-vessel coronary artery disease, status post LAD and RCA stenting in 2022, hyperlipidemia, ex-smoker, strong family history, hiatal hernia, preserved left ventricular function. OPERATION: 1. Multiple arterial quadruple coronary artery bypass grafting using the in situ left internal mammary artery sequentially to the diagonal artery, then to the left anterior descending artery, left radial artery from the aorta to the 1st obtuse marginal artery, reverse saphenous vein graft from the aorta to the posterolateral branch of the right coronary artery. 2. Exclusion of left atrial appendage using a 35 mm AtriClip. 3. Endoscopic harvesting of the left radial artery. 4. Endoscopic harvesting of the right greater saphenous vein. 5. Intraoperative graft flow measurements using the [employer] system. 6. Intraoperative transesophageal echocardiogram and epiaortic scanning. INDICATION FOR SURGERY: The patient is a very pleasant 60-year-old gentleman, who was worked up for recurrent chest pain, having had a history of PCI in 2022 and found to have significant triple- vessel disease with significant in-stent restenosis. His echo showed preserved left ventricular function. The patient was then taken for elective coronary bypass surgery. We will be using multiple arterial grafting in view of his age. NARRATIVE: The patient in supine position, right internal jugular Mingo-Su catheter and right radial arterial line were placed in the preoperative holding area. Subsequently, he was brought to the operating room where his PA pressure was normal and cardiac index was 3. Subsequently, general endotracheal anesthesia was induced uneventfully. A Cervantes catheter was inserted. The chest, abdomen, both lower extremity and the left upper extremity were prepped and draped using ChloraPrep. Ioban was used to cover the skin. The patient received 2 g of cefazolin intravenously. Transesophageal echocardiogram confirmed the preoperative finding of preserved left ventricular function and no significant valvular abnormalities. Midline sternotomy was performed and the bone was osteoporotic. No bone wax was used. The left hemisternum was elevated and the left internal mammary artery was harvested in a somewhat skeletonized fashion. The patient was given 5000 units of heparin. The mammary artery was double clipped distally and transected, had an excellent pulsatile flow in it and was around 2 mm in diameter. The left pleura was intentionally opened in this process and was drained with a 19-Haitian Ba drain. The right pleura had a breach in it and it was also drained with a 19-Haitian Ba drain. In the same setting, the left radial artery was exposed at the wrist and a clamping trial revealed preserved signal in the left index O2 saturation probe. The artery was harvested endoscopically without using a tourniquet. Forearm incisions were closed and were drained. The radial artery was prepared by incising the fascia all along its volar aspect and clipping all its branches. It was of good quality, around 2.5 mm in diameter. Also, in the same settings, the right greater saphenous vein was harvested endoscopically from groin to below-knee level. It appeared to be of reasonable quality around 3.5 mm in diameter and uniform. The leg incisions were closed in layers. Ankeney sternal retractor was used. Mediastinal fat was transected between 2 ties and epiaortic scanning revealed no protruding atheroma in the ascending aorta. Pericardium was opened in an inverted T-fashion and a pericardial cradle was created. FINDINGS: Included a normal soft aorta and a normal size heart. After systemic heparinization, after placement of respective pledgeted purse- string, aortic cannulation and the proximal arch with a 21-Haitian soft flow cannula and venous cannulation via the right atrial appendage with a 3 staged 29-Haitian cannula was performed. Antegrade as well as retrograde cardioplegia catheter were placed. Cardiopulmonary bypass was initiated and with the heart empty and beating, we looked at the target. It appeared that the mid to distal left anterior descending artery beyond the stents, the large 1st diagonal artery, 1st obtuse marginal artery and the posterolateral branch of the right coronary artery will be the site for bypass. Aorta was clamped and during aortic clamping myocardial protection was achieved, and an initial dose of 1 L of antegrade cold blood cardioplegia followed by 200 mL of retrograde cold blood cardioplegia. All subsequent doses were given retrograde at 15- minute interval. We started by excluding the left atrial appendage by deploying a 35 mm AtriClip at its base. The 1st distal anastomosis was between a segment of vein and the 1.5 mm thin- walled posterolateral branch of the right coronary artery using Prolene 7-0 in continuous fashion. The 2nd distal anastomosis was between the radial artery and the 1.4 mm thin- walled 1st obtuse marginal artery using Prolene 7-0 in continuous fashion. The 3rd distal anastomosis was between the left internal mammary artery that passed in a deep groove in the left pleural pericardial fat and anastomosed to the large 1st diagonal artery in a [id number] sequential fashion using Prolene 7-0. Subsequently, the fourth and last distal anastomosis was between the end of the left internal mammary artery and the left anterior descending artery, which was around 1.7 mm in diameter using Prolene 7-0 in a continuous fashion. Satisfied with the distal anastomosis, attention was moved at performing the proximal anastomosis at this point, 2 buttons of 4 mm each were punched out of the ascending aorta and the 2 proximal anastomosis of the radial artery and the vein graft were performed separately using running Prolene. The patient was given warm blood via the retrograde route and flow was reestablished through the mammary artery. He was placed in Trendelenburg position and was given lidocaine and magnesium and de-airing maneuvers were pursued before unclamping the aorta. The patient regained spontaneous sinus rhythm, was somewhat bradycardic though. Two monopolar atrial pacing wires were affixed to the respective purse-string on the right atrium and 219-Haitian Ba drain was left substernally. After around 15 minutes of reperfusion, we were able to wean off cardioplegia bypass without the need of any inotropic or vasopressor support. The balloon was atrially paced at 70 with good conduction. At this point, we proceeded the graft flow measurements using the [employer] system. A 4 mm probe was selected and the flow into the vein to the right coronary artery system and the posterolateral branch, specifically was measured. It was 106 mL/minute, pulsatility index of 1.8 diastolic filling of 65%. The flow into the radial artery to the 1st obtuse marginal artery was 45 mL/minute, pulsatility index of 2.1, diastolic filling of 70%. The flow into the left internal mammary artery proximally going to the diagonal artery and the left anterior descending artery was 67 mL/minute, pulsatility index of 1.6, diastolic filling of 71%. Between the diagonal artery and the left internal mammary artery, the flow was measured and it was around 27 mL/minute. With that, test dose and full dose protamine was given. The decannulation followed. The venous cannulation site required reinforcement with 4-0 Prolene. Pericardial fat was approximated over the ventricle and the graft and the mediastinal fat was approximated over the aorta. After ensuring adequate hemostasis and hemodynamic and after correct sponge, instrument, and needle count, the sternum was closed using 5 [id number] pineal cable after interposing fibular between the sternal edges. Thorough irrigation with cefazolin followed. The rest of the closure proceeded in layers. Skin glue was applied. The patient did not receive any blood bank product, but received around 470 mL of Cell Saver blood. He was transferred to the ICU in stable condition on low-dose nitroglycerin. MMODL / IJN: [id number] / [id number]
[2025-04-28] MEDS: KETOROLAC 15 MG/ML 1 ML VIAL IVP SCH (23:48)
[2025-04-29 00:16] LABS: Glucose,Whole Blood 133 mg/dL (70-110)
[2025-04-29 01:02] LABS: Glucose,Whole Blood 133 mg/dL (70-110)
[2025-04-29 02:04] LABS: Glucose,Whole Blood 129 mg/dL (70-110)
[2025-04-29 03:33] LABS: Glucose,Whole Blood 121 mg/dL (70-110)
[2025-04-29 04:38] LABS: Glucose,Whole Blood 124 mg/dL (70-110)
[2025-04-29 04:51] LABS: Basophils # (A) 0.02 10*3/uL (0.00-0.10); Basophils % (A) 0.3 %; Eosinophils # (A) 0.01 10*3/uL (0.04-0.35); Eosinophils % (A) 0.1 %; HCT 25.1 % (39.6-50.0); HGB 8.5 g/dL (13.0-17.0); Lymphocytes # (A) 0.47 10*3/uL (0.90-5.00); Lymphocytes % (A) 6.3 %; MCH 30.7 pg (27.0-32.0); MCHC 33.9 g/dL (32.0-37.0); MCV 90.6 fL (80.0-97.0); Mean Platelet Volume 8.7 fL (9.5-12.2); Monocytes # (A) 0.47 10*3/uL (0.20-1.00); Monocytes % (A) 6.3 %; Neutrophils # (A) 6.45 10*3/uL (1.80-7.70); Neutrophils % (A) 86.7 %; RBC 2.77 10*6/uL (4.40-5.60); WBC 7.44 10*3/uL (4.50-10.00)
[2025-04-29 05:01] LABS: Platelet Count 92 10*3/uL (140-440)
[2025-04-29 05:24] LABS: Ionized Calcium 4.6 mg/dL (4.5-5.3)
[2025-04-29 05:33] LABS: ALT 16 U/L (4-49); AST 52 U/L (17-59); African American GFR (CKD) >90 (>60 ml/min/1.73 sqM); Albumin 3.2 g/dL (3.5-5.0); Alkaline Phosphatase 24 U/L (38-126); Anion Gap 7 mmol/L; Blood Urea Nitrogen 13 mg/dL (9-20); Calcium 8.3 mg/dL (8.4-10.2); Carbon Dioxide 24 mmol/L (22-30); Chloride 105 mmol/L (98-107); Glucose 111 mg/dL (74-99); Non-African American GFR(CKD) >90 (>60 ml/min/1.73 sqM); Potassium 4.4 mmol/L (3.5-5.1); Sodium 136 mmol/L (137-145); Total Bilirubin 2.6 mg/dL (0.2-1.3); Total Protein 4.9 g/dL (6.3-8.2)
--- NOTE | 2025-04-29 06:00 | P.CNPUL ---
History of Present Illness Consult date: 04/29/25 Requesting physician: Johana Valle Reason for consult: other (ICU and routine ventilator management) Chief complaint: Postoperative CABG History of present illness: Patient is a 60-year-old male with past medical history significant for hypertension, hyperlipidemia, coronary artery disease with previous MT and cardiac stents to the RCA and LAD. Does follow in the cardiology office with Dr. Garcia. Recently underwent outpatient stress test January, suggestive of ischemia. Did undergo heart catheterization April 09, revealing 50% left main stenosis, mid LAD stenosis at 90%, first diagonal branch of the LAD with 50% stenosis, and proximal RCA stenosis 85%. Patient was referred to cardiothoracic surgery for evaluation, and brought in yesterday for an elective CABG. Preop chest CT from his previous admission showing extensive three-vessel coronary artery calcifications. Some focal tree-in-bud opacities in the periphery right base. A couple fissural pulmonary nodules on the right measuring 1 cm. Favored to be benign. Preoperative pulmonary function test with the FEV1/FVC ratio of 78%. FEV1 was 3.42 L or 98% of predicted. Yesterday, Dr. Armas did perform a quadruple bypass including a CARBALLO to the diagonal and then to the LAD, left radial artery graft to the OM1, reverse SVG from the aorta to the posterior lateral branch of the RCA. Also, exclusion of left atrial appendage. No perioperative complications were reported. Postoperatively, the patient was sent to the intensive care unit, intubated to the mechanical ventilator. Chest x-ray showing postoperative changes. No significant pleural effusions, pneumothoraces, or focal consolidations. Endotracheal tube 6.1 cm of the joslyn. Nasogastric tube projects below the diaphragm. Pulmonary artery catheter in appropriate position. Thoracotomy tubes noted. Patient was ultimately switched to pressure support and follow-up ABG after 30 minutes showing a PaO2 of 194, pCO2 of 44, and pH of 7.34. Patient did have satisfactory weaning parameters including an RSBI of 49, negative -27, positive cuff leak. Dr. Camarena previously had given orders to extubate. Patient was successfully extubated without complication at 1950 to 2 L/min nasal cannula. Postoperative labs including a WBC count of 6.6, hemoglobin 8.8 g/dL, platelets 88,000. BMP with sodium 137, potassium 4.7, chloride 110, serum bicarb 21, BUN 12, creatinine 0.74, glucose 131. iCal 4.6. Magnesium 2.4. LFTs unremarkable. Patient currently being evaluated in the intensive care unit following interval into extubation. He is resting comfortably on 2 L/min nasal cannula. His incentive spirometer is at bedside. Achieving around 1000 mL. Denies any difficulty in breathing. States he has some left posterior lateral back pain. Better controlled following the addition of Toradol. He does have 2 mediastinal chest tubes with a total of 370 mL of serosanguineous output so far. Left pleural chest tube with 500 cc of sanguinous output and a right pleural chest tube with 150 cc of serosanguineous output. No notable airleak. Chest tubes are hooked to atrium and suction at -20 cm H2O. he also has a right lower extremity VENUS drain which is compressed with minimal output and a left forearm VENUS drain also compressed with minimal output. Blood pressure is slightly hypertensive. Most recent CO/CI 5.8 and 2.8 respectively. Not requiring any inotropes. Normal sinus infusing at 30 mL/h. Nitroglycerin infusing at 5 mcg/min. Insulin per protocol. He does have a epicardial pacemaker set to AAI with a backup rate of 70 bpm. Currently has his own intrinsic rhythm, normal sinus on bedside monitor. Urine output is adequate in order of 30 cc/h. Review of Systems REVIEW OF SYSTEMS: CONSTITUTIONAL: Denies any recent significant weight loss or weight gain. EYES: Denies change in vision. EARS, NOSE, MOUTH, THROAT: Denies headaches, denies sore throat. CARDIOVASCULAR: Endorses postoperative chest pain as described in HPI, better controlled with recent addition of Toradol. Denies any heart palpitations, lightheadedness, syncopal episodes or lower extremity edema. RESPIRATORY: Denies shortness of breath, cough, congestion or hemoptysis. GASTROINTESTINAL: Denies change in appetite, abdominal pain, nausea and vomiting, or diarrhea GENITOURINARY: Denies hematuria, denies infections. MUSKULOSKELETAL: Denies pain, denies swelling. INTEGUMENTARY: Denies rash, denies eczema. NEUROLOGICAL: Denies recent memory loss, no recent seizure activity. PSYCHIATRIC: Denies anxiety, denies depression. HEMATOLOGIC/LYMPHATIC: Denies anemia, denies enlarged lymph node Past Medical History Past Medical History: Coronary Artery Disease (CAD), GERD/Reflux, Hyperlipid emia, Myocardial Infarction (MT) Additional Past Medical History / Comment(s): recent stress test & echo, 4 cardiac stents total Last Myocardial Infarction Date:: 03-24-23 History of Any Multi-Drug Resistant Organisms: None Reported Past Surgical History: Cholecystectomy, Heart Catheterization, Heart Catheterization With Stent Additional Past Surgical History / Comment(s): recent cardiac cath. Past Anesthesia/Blood Transfusion Reactions: No Reported Reaction Date of Last Stent Placement:: March 2023 Smoking Status: Never smoker - Past Family History Mother Family Medical History: Coronary Artery Disease (CAD) Sister(s) Family Medical History: Coronary Artery Disease (CAD) Father Family Medical History: Renal Disease Additional Family Medical History / Comment(s): Father of kidney disease Medications and Allergies Home Medications Medication Instructions Recorded Confirmed Type Aspirin 81 mg PO DAILY #90 tab 03/27/23 04/28/25 Rx Atorvastatin [Lipitor] 80 mg PO DAILY #90 tab 03/27/23 04/28/25 Rx Metoprolol Succinate (ER) [Toprol 25 mg PO DAILY #90 tab 03/27/23 04/28/25 Rx XL] lisinopriL [Zestril] 5 mg PO DAILY 04/07/23 04/28/25 History Colchicine 0.6 mg PO DAILY 04/02/25 04/28/25 History Esomeprazole Magnesium [NexIUM 40 mg PO DAILY 04/25/25 04/28/25 History 24Hr] Mupirocin [Mupirocin 2%] 1 applic NASAL BID #1 tub 04/25/25 04/28/25 Rx Nitroglycerin Sl Tabs [Nitrostat] 0.4 mg SUBLINGUAL Q5M PRN 04/25/25 04/28/25 History Allergies Allergy/AdvReac Type Severity Reaction Status Date / Time No Known Allergies Allergy Verified 04/28/25 06:12 Physical Exam Vitals: Vital Signs Temp Pulse Pulse Resp BP BP BP 04/29/25 01:00 78 13 98/75 04/29/25 00:45 78 14 04/29/25 00:30 11 L 98/75 04/29/25 00:15 80 14 98/75 04/29/25 00:00 100.2 F H 82 22 108/61 04/28/25 23:45 80 16 108/61 04/28/25 23:30 80 16 108/61 04/28/25 23:15 80 16 108/61 04/28/25 23:00 80 24 96/59 04/28/25 22:45 88 20 96/59 04/28/25 22:30 80 15 96/59 04/28/25 22:29 82 14 96/59 04/28/25 22:15 80 15 96/59 04/28/25 22:00 80 15 93/57 04/28/25 21:45 84 12 93/57 04/28/25 21:30 80 14 93/57 04/28/25 21:15 90 32 H 93/57 04/28/25 21:00 80 14 86/54 04/28/25 20:45 80 15 86/54 04/28/25 20:30 82 14 86/54 04/28/25 20:15 80 15 86/54 04/28/25 20:05 84 18 04/28/25 20:03 04/28/25 20:00 100.9 F H 83 17 94/57 04/28/25 19:58 84 18 04/28/25 19:45 86 25 H 94/57 04/28/25 19:30 78 17 89/45 04/28/25 19:15 76 46 H 89/45 04/28/25 19:00 89 26 H 04/28/25 18:45 73 14 04/28/25 18:30 76 19 04/28/25 18:15 82 14 101/68 04/28/25 18:00 82 14 04/28/25 17:45 86 14 04/28/25 17:30 94 22 04/28/25 17:15 86 14 04/28/25 17:00 89 14 04/28/25 16:45 89 14 04/28/25 16:30 88 19 04/28/25 16:15 82 14 04/28/25 16:00 98.8 F 80 16 04/28/25 15:45 98.4 F 76 15 04/28/25 15:30 77 14 04/28/25 15:26 04/28/25 15:15 69 14 04/28/25 15:00 70 12 04/28/25 14:58 97.7 F 70 21 04/28/25 14:36 04/28/25 06:05 97.8 F 68 16 147/80 161/89 Pulse Ox FiO2 04/29/25 01:00 99 04/29/25 00:45 98 04/29/25 00:30 100 04/29/25 00:15 98 04/29/25 00:00 100 04/28/25 23:45 100 04/28/25 23:30 100 04/28/25 23:15 98 04/28/25 23:00 100 04/28/25 22:45 98 04/28/25 22:30 100 04/28/25 22:29 100 04/28/25 22:15 99 04/28/25 22:00 99 04/28/25 21:45 100 04/28/25 21:30 100 04/28/25 21:15 100 04/28/25 21:00 100 04/28/25 20:45 100 04/28/25 20:30 100 04/28/25 20:15 100 04/28/25 20:05 04/28/25 20:03 99 04/28/25 20:00 100 04/28/25 19:58 04/28/25 19:45 100 04/28/25 19:30 100 04/28/25 19:15 100 04/28/25 19:00 100 50 04/28/25 18:45 100 04/28/25 18:30 100 04/28/25 18:15 100 04/28/25 18:00 100 50 04/28/25 17:45 100 04/28/25 17:30 100 04/28/25 17:15 100 04/28/25 17:00 100 50 04/28/25 16:45 100 04/28/25 16:30 100 04/28/25 16:15 100 04/28/25 16:00 100 100 04/28/25 15:45 100 04/28/25 15:30 100 04/28/25 15:26 50 04/28/25 15:15 100 50 04/28/25 15:00 100 04/28/25 14:58 100 100 04/28/25 14:36 100 04/28/25 06:05 98 Intake and Output 04/28/25 04/28/25 04/29/25 14:59 22:59 06:59 Intake Total 53 447.676 352.308 Output Total 1250 1921 280 Balance -1197 -1473.324 72.308 Intake: IV 53 396.0 351.5 ACETAMINOPHEN IV (For NPO 100 ) 1,000 mg In Empty Bag 1 bag @ 400 mls/hr IVPB Q6HR [facility] Rx#:[id number] CO/CI 60 20 Nitroglycerin-D5w Pmx 50 9.0 4.5 mg In Dextrose/Water 1 250ml.bag @ Per Protocol IV ONCE ONE Rx#:[id number] Pressure Bags 27 27 Sodium Chloride 0.9% 1, 150 150 000 ml @ 50 mls/hr IV . Q20H [facility] Rx#:[id number] Sodium Chloride 0.9% 50 150 ml @ 0 mls/hr IV .STK-MED ONE with ceFAZolin 2,000 mg Rx#:[id number] ceFAZolin 2 gm In 50 Dextrose 5% in Water 50 ml @ 100 mls/hr IVPB Q8HR [facility] Rx#:[id number] Intake, IV Titration 51.676 0.808 Amount Insulin Regular 100 unit 9.453 0.808 In Sodium Chloride 0.9% 100 ml @ Per Protocol IV .Q0M [facility] Rx#:[id number] propofoL 1,000 mg In 42.223 Empty Bag 1 bag @ Titrate IV .Q0M [facility] Rx#: [id number] Output: Chest Tube Drainage 926 120 Chest Tube Mediastinal 340 50 Chest Tube Right Lateral 146 0 Chest Left Lateral Chest 440 70 Drainage 0 0 Left Wrist 0 0 Right Calf 0 0 Urine 650 995 160 Estimated Blood Loss 600 Other: Voiding Method Indwelling Catheter Indwelling Catheter ABP, PAP, CO, CI - Last 8 Hours Arterial Blood Pressure 106/48 Arterial Blood Pressure 121/50 Arterial Blood Pressure 99/76 Arterial Blood Pressure 191/181 Arterial Blood Pressure 132/63 Arterial Blood Pressure 126/53 Arterial Blood Pressure 123/54 Arterial Blood Pressure 111/50 Arterial Blood Pressure 128/55 Arterial Blood Pressure 142/64 Arterial Blood Pressure 114/52 Arterial Blood Pressure 113/51 Arterial Blood Pressure 111/53 Arterial Blood Pressure 99/47 Arterial Blood Pressure 121/51 Arterial Blood Pressure 108/48 Arterial Blood Pressure 121/51 Arterial Blood Pressure 123/54 Arterial Blood Pressure 109/48 Arterial Blood Pressure 111/53 Arterial Blood Pressure 97/49 Arterial Blood Pressure 96/43 Arterial Blood Pressure 113/55 Arterial Blood Pressure 97/43 Arterial Blood Pressure 84/48 Arterial Blood Pressure 105/51 Arterial Blood Pressure 98/44 Arterial Blood Pressure 88/51 Arterial Blood Pressure 108/54 Arterial Blood Pressure 116/62 Arterial Blood Pressure 111/55 Pulmonary Artery Pressure 24/10 Pulmonary Artery Pressure 22/8 Pulmonary Artery Pressure 36/17 Pulmonary Artery Pressure 28/12 Pulmonary Artery Pressure 34/15 Pulmonary Artery Pressure 24/11 Pulmonary Artery Pressure 26/10 Pulmonary Artery Pressure 24/9 Pulmonary Artery Pressure 31/15 Pulmonary Artery Pressure 33/15 Pulmonary Artery Pressure 28/13 Pulmonary Artery Pressure 28/12 Pulmonary Artery Pressure 27/13 Pulmonary Artery Pressure 27/10 Pulmonary Artery Pressure 29/13 Pulmonary Artery Pressure 27/11 Pulmonary Artery Pressure 29/14 Pulmonary Artery Pressure 28/14 Pulmonary Artery Pressure 28/12 Pulmonary Artery Pressure 27/12 Pulmonary Artery Pressure 25/10 Pulmonary Artery Pressure 20/8 Pulmonary Artery Pressure 27/17 Pulmonary Artery Pressure 21/7 Pulmonary Artery Pressure 23/8 Pulmonary Artery Pressure 28/12 Pulmonary Artery Pressure 22/9 Pulmonary Artery Pressure 22/12 Pulmonary Artery Pressure 25/12 Pulmonary Artery Pressure 27/13 Pulmonary Artery Pressure 22/11 Cardiac Output 5.8 Cardiac Output 5.3 Cardiac Output 4.8 Cardiac Output 5.4 Cardiac Output 5.4 Cardiac Output 5.4 Cardiac Output 5.4 Cardiac Output 5.4 Cardiac Output 5.4 Cardiac Output 5.4 Cardiac Output 5.4 Cardiac Index 2.8 Cardiac Index 2.6 Cardiac Index 2.3 Cardiac Index 2.6 Cardiac Index 2.6 Cardiac Index 2.6 Cardiac Index 2.6 Cardiac Index 2.6 Cardiac Index 2.6 Cardiac Index 2.6 Cardiac Index 2.6 GENERAL EXAM: Alert, 60-year-old male, comfortable in no apparent distress. HEAD: Normocephalic and atraumatic EYES: Normal reaction of pupils, equal size. NOSE: Clear with pink turbinates. THROAT: No erythema or exudates. NECK: No masses, no JVD. Right IJ cordis with Reading-Su catheter locked CHEST: Postoperative midsternal incision with postoperative dressing clean and intact. Heart hugger in place. Patient has 2 mediastinal thoracotomy tubes, left pleural chest tube and a right pleural chest tube. Attached to atriums with -20 cm H2O suction. LUNGS: Equal air entry with no crackles, wheeze, rhonchi or dullness. On 2 L/min nasal cannula. No conversational dyspnea or accessory muscle use.. Incentive spirometer sitting at bedside. CVS: S1 and S2 normal with no audible murmur, regular rhythm. No extra heart sounds ABDOMEN: No hepatosplenomegaly, hypoactive bowel sounds, no guarding or rigidity. SPINE: No scoliosis or deformity SKIN: No rashes CENTRAL NERVOUS SYSTEM: No focal deficits, tone is normal in all 4 extremities. EXTREMITIES: Bilateral lower extremities wrapped with Matt bandages. There is no peripheral edema, clubbing, or cyanosis. Peripheral pulses are intact. Right lower extremity VENUS drain with bulb compressed and left forearm VENUS drain with bulb compressed and minimal drainage. Results - Laboratory Findings CBC and BMP: 04/29/25 04:30 04/29/25 04:30 ABG ABG pH 7.34 (7.35-7.45) L 04/28/25 19:37 ABG pCO2 44 mmHg (35-45) 04/28/25 19:37 ABG pO2 194 mmHg (83-108) H 04/28/25 19:37 ABG O2 Saturation 99.9 % (94-97) H 04/28/25 19:37 PT/INR, D-dimer PT 13.6 sec (10.0-12.5) H 04/28/25 14:36 INR 1.3 (<1.2) H 04/28/25 14:36 Abnormal lab findings: Abnormal Labs 04/25/25 04/28/25 04/28/25 08:17 08:41 10:11 RBC Hgb Hct Plt Count MPV Lymphocytes # Monocytes # Eosinophils # PT INR ABG pH 7.29 L ABG pO2 >420 H 163 H ABG Total CO2 ABG O2 Saturation >99.4 H 98.6 H ABG Hematocrit 30 L ABG Sodium ABG Ionized Calcium ABG Glucose 113 H 128 H Hemoglobin 12.8 L 9.9 L Chloride Carbon Dioxide Glucose POC Glucose (mg/dL) Calcium Magnesium Total Bilirubin Alkaline Phosphatase Total Protein Albumin Arterial Blood Glucose 113 H 128 H Crossmatch See Detail 04/28/25 04/28/25 04/28/25 11:11 11:46 12:13 RBC Hgb Hct Plt Count MPV Lymphocytes # Monocytes # Eosinophils # PT INR ABG pH ABG pO2 >420 H 373 H 349 H ABG Total CO2 ABG O2 Saturation >99.4 H >99.4 H >99.4 H ABG Hematocrit 23 L 23 L 24 L ABG Sodium 134 L ABG Ionized Calcium 4.0 L 4.0 L 4.1 L ABG Glucose 131 H 151 H 160 H Hemoglobin 7.6 L 7.6 L 7.7 L Chloride Carbon Dioxide Glucose POC Glucose (mg/dL) Calcium Magnesium Total Bilirubin Alkaline Phosphatase Total Protein Albumin Arterial Blood Glucose 131 H 151 H 160 H Crossmatch 04/28/25 04/28/25 04/28/25 12:50 13:23 14:19 RBC Hgb Hct Plt Count MPV Lymphocytes # Monocytes # Eosinophils # PT INR ABG pH 7.34 L 7.33 L 7.31 L ABG pO2 381 H 345 H 316 H ABG Total CO2 ABG O2 Saturation 99.2 H 99.3 H 99.3 H ABG Hematocrit 24 L 23 L 27 L ABG Sodium ABG Ionized Calcium 4.1 L 4.1 L ABG Glucose 155 H 179 H 170 H Hemoglobin 7.9 L 7.5 L 8.9 L Chloride Carbon Dioxide Glucose POC Glucose (mg/dL) Calcium Magnesium Total Bilirubin Alkaline Phosphatase Total Protein Albumin Arterial Blood Glucose 155 H 179 H 170 H Crossmatch 04/28/25 04/28/25 04/28/25 14:36 14:36 14:36 RBC 3.15 L Hgb 9.6 L D Hct 28.4 L Plt Count 92 L D MPV 9.1 L Lymphocytes # Monocytes # 0.13 L Eosinophils # 0.01 L PT 13.6 H INR 1.3 H ABG pH ABG pO2 ABG Total CO2 ABG O2 Saturation ABG Hematocrit ABG Sodium ABG Ionized Calcium ABG Glucose Hemoglobin Chloride 110 H Carbon Dioxide 21 L Glucose 131 H POC Glucose (mg/dL) Calcium 8.3 L Magnesium 2.4 H Total Bilirubin 2.0 H Alkaline Phosphatase 26 L Total Protein 4.9 L Albumin 3.2 L Arterial Blood Glucose Crossmatch 04/28/25 04/28/25 04/28/25 15:13 15:18 16:23 RBC Hgb Hct Plt Count MPV Lymphocytes # Monocytes # Eosinophils # PT INR ABG pH ABG pO2 >420 H ABG Total CO2 ABG O2 Saturation >100.0 H ABG Hematocrit ABG Sodium ABG Ionized Calcium ABG Glucose Hemoglobin 10.4 L Chloride Carbon Dioxide Glucose POC Glucose (mg/dL) 133 H 139 H Calcium Magnesium Total Bilirubin Alkaline Phosphatase Total Protein Albumin Arterial Blood Glucose Crossmatch 04/28/25 04/28/25 04/28/25 17:06 18:00 18:04 RBC 3.22 L Hgb 9.9 L Hct 29.3 L Plt Count 112 L MPV Lymphocytes # 0.40 L Monocytes # Eosinophils # 0.01 L PT INR ABG pH ABG pO2 ABG Total CO2 ABG O2 Saturation ABG Hematocrit ABG Sodium ABG Ionized Calcium ABG Glucose Hemoglobin Chloride Carbon Dioxide Glucose POC Glucose (mg/dL) 136 H 147 H Calcium Magnesium Total Bilirubin Alkaline Phosphatase Total Protein Albumin Arterial Blood Glucose Crossmatch 04/28/25 04/28/25 04/28/25 18:55 19:37 19:43 RBC 2.78 L Hgb 8.8 L Hct 25.2 L Plt Count 88 L MPV 8.9 L Lymphocytes # 0.28 L Monocytes # Eosinophils # 0.01 L PT INR ABG pH 7.34 L ABG pO2 194 H ABG Total CO2 25 H ABG O2 Saturation 99.9 H ABG Hematocrit ABG Sodium ABG Ionized Calcium ABG Glucose Hemoglobin 9.2 L Chloride Carbon Dioxide Glucose POC Glucose (mg/dL) 142 H Calcium Magnesium Total Bilirubin Alkaline Phosphatase Total Protein Albumin Arterial Blood Glucose Crossmatch 04/28/25 04/28/25 04/28/25 20:02 21:09 22:11 RBC Hgb Hct Plt Count MPV Lymphocytes # Monocytes # Eosinophils # PT INR ABG pH ABG pO2 ABG Total CO2 ABG O2 Saturation ABG Hematocrit ABG Sodium ABG Ionized Calcium ABG Glucose Hemoglobin Chloride Carbon Dioxide Glucose POC Glucose (mg/dL) 134 H 131 H 124 H Calcium Magnesium Total Bilirubin Alkaline Phosphatase Total Protein Albumin Arterial Blood Glucose Crossmatch 04/28/25 04/29/25 04/29/25 22:58 00:15 01:01 RBC Hgb Hct Plt Count MPV Lymphocytes # Monocytes # Eosinophils # PT INR ABG pH ABG pO2 ABG Total CO2 ABG O2 Saturation ABG Hematocrit ABG Sodium ABG Ionized Calcium ABG Glucose Hemoglobin Chloride Carbon Dioxide Glucose POC Glucose (mg/dL) 128 H 133 H 133 H Calcium Magnesium Total Bilirubin Alkaline Phosphatase Total Protein Albumin Arterial Blood Glucose Crossmatch - Diagnostic Findings Chest x-ray: image reviewed Assessment and Plan Assessment: Status postoperative day #1 following quadruple coronary artery bypass grafting, including CARBALLO to the diagonal and then to the LAD, left radial artery graft to the OM1, reverse SVG from the aorta to the posterior lateral branch of the RCA. Also, exclusion of left atrial appendage. No perioperative complications were reported. Routine mechanical ventilator management, with interval extubation, currently on 2 L/min nasal cannula Acute blood loss anemia, expected outcome of surgery, has not received any blood products at this time Thrombocytopenia Multivessel coronary artery disease, as reported in recent heart catheterization History of MT with previous stents to the LAD and RCA History of hypertension History of hyperlipidemia Former tobacco smoker Plan: Patient is status post open heart surgery, with interval extubation to 2 L/min nasal cannula Postoperative chest x-ray reviewed Encourage incentive spirometer hourly while awake Currently, patient reports postoperative pain is well-managed Monitor chest tube output Not requiring any inotropes or vasopressors Has not required any blood products Nitroglycerin infusing for vasospasm prophylaxis Insulin infusing per protocol Epicardial pacemaker in place set to AAI with backup rate of 70 bpm. Patient has his own intrinsic rhythm To be started on low-dose beta-arina in the morning, SCDs are on, early ambulation to be encouraged as tolerated Subcu heparin for DVT prophylaxis Protonix for GI prophylaxis We will continue to follow, additional recommendations forthcoming I have personally seen and examined the patient, performed the documentation and the assessment and plan as written. Number of minutes spent on the visit:20 This dictation was produced using [employer] dictation software please excuse grammatical errors Time with Patient: Greater than 30
[2025-04-29 06:36] LABS: Glucose,Whole Blood 131 mg/dL (70-110)
[2025-04-29] MEDS: METOCLOPRAMIDE 5 MG/ML 2 ML VIAL IVP PRN (06:43)
--- NOTE | 2025-04-29 07:41 | P.PN ---
Subjective Progress Note Date: 04/29/25 Principal diagnosis: Triple-vessel coronary artery disease. History of coronary artery disease with myocardial infarction and previous PCI to the LAD and RCA in 2022, preserved le ft ventricular function, hyperlipidemia, lifelong non-smoker but previous chew tobacco with cessation in March 2023, strong family history of coronary disease POD #1 multiple arterial quadruple coronary artery bypass grafting using the in situ left internal mammary artery sequentially to the diagonal artery, then to the left anterior descending artery, left radial artery from the aorta to the first obtuse marginal artery, reverse saphenous vein graft from the aorta to the posterior lateral branch of the right coronary artery, exclusion of the left atrial appendage using a 35mm AtriClip, endoscopic harvesting of the left radial artery, endoscopic harvesting of the right greater saphenous vein, intraoperative graft flow measurements using the Sanswire system, intraoperative transesophageal echocardiogram and epiaortic scanning Postoperative acute blood loss anemia and thrombocytopenia, expected given hemodilution and cardiopulmonary bypass pump The patient was seen and examined this morning sitting up in recliner in the intensive care unit in no acute distress. He was successfully extubated last night at 19:50. Currently in sinus rhythm, hemodynamically stable on no inotropes or pressors. Remains on room air with oxygen saturation in the mid 90s, able to achieve 1000 mL on incentive spirometry. States pain is controlled on current medication regimen, denies shortness of breath. Chest x-ray, labs reviewed. Right internal jugular [place]/Cordis, right radial arterial line, me diastinal/right/left pleural chest tubes all remain. No other new concerns. Objective - Vital Signs Vital signs: Vital Signs Temp 99.0 F 04/29/25 04:00 Pulse 87 04/29/25 07:00 Resp 19 04/29/25 07:00 BP 101/67 04/29/25 07:00 Pulse Ox 93 L 04/29/25 07:00 FiO2 50 04/28/25 19:00 Intake & Output 04/28/25 04/29/25 04/29/25 18:59 06:59 18:59 Intake Total 253.360 955.744 60.5 Output Total 2905 1083 47 Balance -2651.640 -127.256 13.5 Weight 91.9 kg Intake: IV 207.5 935.5 60.5 ACETAMINOPHEN IV (For NPO 100 ) 1,000 mg In Empty Bag 1 bag @ 400 mls/hr IVPB Q6HR [facility] Rx#:[id number] CO/CI 120 Nitroglycerin-D5w Pmx 50 4.5 16.5 1.5 mg In Dextrose/Water 1 250ml.bag @ Per Protocol IV ONCE ONE Rx#:[id number] Pressure Bags 99 9 Sodium Chloride 0.9% 1, 550 50 000 ml @ 20 mls/hr IV . Q24H [facility] Rx#:[id number] Sodium Chloride 0.9% 50 150 ml @ 0 mls/hr IV .STK-MED ONE with ceFAZolin 2,000 mg Rx#:[id number] ceFAZolin 2 gm In 50 Dextrose 5% in Water 50 ml @ 100 mls/hr IVPB Q8HR [facility] Rx#:[id number] Intake, IV Titration 45.860 20.244 Amount Dexmedetomidine/0.9% NaCl 13.62 (Pmx) 400 mcg In Empty Bag 1 bag @ Titrate IV . Q0M [facility] Rx#:[id number] Insulin Regular 100 unit 3.637 6.624 In Sodium Chloride 0.9% 100 ml @ Per Protocol IV .Q0M [facility] Rx#:[id number] propofoL 1,000 mg In 42.223 Empty Bag 1 bag @ Titrate IV .Q0M [facility] Rx#: [id number] Output: Chest Tube Drainage 780 518 12 Chest Tube Mediastinal 270 180 0 Chest Tube Right Lateral 140 38 2 Chest Left Lateral Chest 370 300 10 Drainage 50 0 Left Wrist 20 0 Right Calf 30 0 Urine 1525 515 35 Estimated Blood Loss 600 Other: Voiding Method Indwelling Catheter Indwelling Catheter ABP, PAP, CO, CI - Last Documented Arterial Blood Pressure 117/48 Pulmonary Artery Pressure 22/7 Cardiac Output 5.7 Cardiac Index 2.8 - Exam CONSTITUTIONAL: Appears comfortable, cooperative, no acute distress RESPIRATORY: Lungs sounds diminished bilaterally. Respirations even, nonlabored. Currently on room air with oxygen saturation 94%. Able to achieve 1000 mL on incentive spirometry. Strong cough. CARDIOVASCULAR: S1, S2 present. Regular rate and rhythm, sinus rhythm on telemetry. Sternum stable. Palpable peripheral pulses bilaterally. No edema present. No calf pain or tenderness noted. Heart hugger in place with patient demonstrating appropriate use. Antiembolism stockings, SCDs present. GASTROINTESTINAL: Abdomen soft, nontender, nondistended. Hypoactive bowel sounds present 4 quadrants. Tolerating clear liquids. Denies flatus GENITOURINARY: Cervantes present draining clear, yellow urine. Output overnight 40-60 mL per hour INTEGUMENTARY: Skin is warm and dry with evidence of good perfusion. Anterior chest incision well approximated and covered with dry intact dressing. Left radial artery harvest site as well as right lower extremity EVH site well approximated, VENUS drains present with minimal output NEUROLOGIC: Cranial nerves II through XII intact MUSKULOSKELETAL: Able to move all extremities, strength equal bilaterally, gait normal PSYCHIATRIC: Alert and oriented to person place and time, appropriate affect, intact judgment and insight INVASIVE LINES AND TUBES: Mediastinal/left/right pleural chest tubes present a nd connected to wall suction, no air leaks present. Mediastinal tube with 80 mL serosanguineous drainage overnight, 350 mL since surgery. Left pleural chest tube with 130 mL serosanguineous drainage overnight, 700 mL since surgery. Right pleural chest tube with 20 mL serosanguineous drainage overnight, 180 mL since surgery. Atrial epicardial pacemaker wires present, connected to generator, backup rate 50 bpm. Right internal jugular [place]/Cordis, right radial arterial line present. Last CO/CI 5.8/2.8, PA 23/10, CVP 6. - Allied health notes Allied health notes reviewed: nursing - Labs CBC & Chem 7: 04/29/25 04:30 04/29/25 04:30 Labs: Abnormal Lab Results - Last 24 Hours (Table) 04/25/25 04/28/25 04/28/25 Range/Units 08:17 08:41 10:11 RBC (4.40-5.60) 10*6/uL Hgb (13.0-17.0) g/dL Hct (39.6-50.0) % Plt Count (140-440) 10*3/uL MPV (9.5-12.2) fL Lymphocytes # (0.90-5.00) 10*3/uL Monocytes # (0.20-1.00) 10*3/uL Eosinophils # (0.04-0.35) 10*3/uL PT (10.0-12.5) sec INR (<1.2) ABG pH 7.29 L (7.35-7.45) ABG pO2 >420 H 163 H (83-108) mmHg ABG Total CO2 (19-24) mmol/L ABG O2 Saturation >99.4 H 98.6 H (94-97) % ABG Hematocrit 30 L (34.0-46.0) % ABG Sodium (135-146) mmol/L ABG Ionized Calcium (4.5-5.3) mg/dL ABG Glucose 113 H 128 H (75-99) mg/dL Hemoglobin 12.8 L 9.9 L (13.0-17.5) gm/dL Sodium (137-145) mmol/L Chloride (98-107) mmol/L Carbon Dioxide (22-30) mmol/L Glucose (74-99) mg/dL POC Glucose (mg/dL) (70-110) mg/dL Calcium (8.4-10.2) mg/dL Magnesium (1.6-2.3) mg/dL Total Bilirubin (0.2-1.3) mg/dL Alkaline Phosphatase (38-126) U/L Total Protein (6.3-8.2) g/dL Albumin (3.5-5.0) g/dL Arterial Blood Glucose 113 H 128 H (75-99) mg/dL Crossmatch See Detail 04/28/25 04/28/25 04/28/25 Range/Units 11:11 11:46 12:13 RBC (4.40-5.60) 10*6/uL Hgb (13.0-17.0) g/dL Hct (39.6-50.0) % Plt Count (140-440) 10*3/uL MPV (9.5-12.2) fL Lymphocytes # (0.90-5.00) 10*3/uL Monocytes # (0.20-1.00) 10*3/uL Eosinophils # (0.04-0.35) 10*3/uL PT (10.0-12.5) sec INR (<1.2) ABG pH (7.35-7.45) ABG pO2 >420 H 373 H 349 H (83-108) mmHg ABG Total CO2 (19-24) mmol/L ABG O2 Saturation >99.4 H >99.4 H >99.4 H (94-97) % ABG Hematocrit 23 L 23 L 24 L (34.0-46.0) % ABG Sodium 134 L (135-146) mmol/L ABG Ionized Calcium 4.0 L 4.0 L 4.1 L (4.5-5.3) mg/dL ABG Glucose 131 H 151 H 160 H (75-99) mg/dL Hemoglobin 7.6 L 7.6 L 7.7 L (13.0-17.5) gm/dL Sodium (137-145) mmol/L Chloride (98-107) mmol/L Carbon Dioxide (22-30) mmol/L Glucose (74-99) mg/dL POC Glucose (mg/dL) (70-110) mg/dL Calcium (8.4-10.2) mg/dL Magnesium (1.6-2.3) mg/dL Total Bilirubin (0.2-1.3) mg/dL Alkaline Phosphatase (38-126) U/L Total Protein (6.3-8.2) g/dL Albumin (3.5-5.0) g/dL Arterial Blood Glucose 131 H 151 H 160 H (75-99) mg/dL Crossmatch 04/28/25 04/28/25 04/28/25 Range/Units 12:50 13:23 14:19 RBC (4.40-5.60) 10*6/uL Hgb (13.0-17.0) g/dL Hct (39.6-50.0) % Plt Count (140-440) 10*3/uL MPV (9.5-12.2) fL Lymphocytes # (0.90-5.00) 10*3/uL Monocytes # (0.20-1.00) 10*3/uL Eosinophils # (0.04-0.35) 10*3/uL PT (10.0-12.5) sec INR (<1.2) ABG pH 7.34 L 7.33 L 7.31 L (7.35-7.45) ABG pO2 381 H 345 H 316 H (83-108) mmHg ABG Total CO2 (19-24) mmol/L ABG O2 Saturation 99.2 H 99.3 H 99.3 H (94-97) % ABG Hematocrit 24 L 23 L 27 L (34.0-46.0) % ABG Sodium (135-146) mmol/L ABG Ionized Calcium 4.1 L 4.1 L (4.5-5.3) mg/dL ABG Glucose 155 H 179 H 170 H (75-99) mg/dL Hemoglobin 7.9 L 7.5 L 8.9 L (13.0-17.5) gm/dL Sodium (137-145) mmol/L Chloride (98-107) mmol/L Carbon Dioxide (22-30) mmol/L Glucose (74-99) mg/dL POC Glucose (mg/dL) (70-110) mg/dL Calcium (8.4-10.2) mg/dL Magnesium (1.6-2.3) mg/dL Total Bilirubin (0.2-1.3) mg/dL Alkaline Phosphatase (38-126) U/L Total Protein (6.3-8.2) g/dL Albumin (3.5-5.0) g/dL Arterial Blood Glucose 155 H 179 H 170 H (75-99) mg/dL Crossmatch 04/28/25 04/28/25 04/28/25 Range/Units 14:36 14:36 14:36 RBC 3.15 L (4.40-5.60) 10*6/uL Hgb 9.6 L D (13.0-17.0) g/dL Hct 28.4 L (39.6-50.0) % Plt Count 92 L D (140-440) 10*3/uL MPV 9.1 L (9.5-12.2) fL Lymphocytes # (0.90-5.00) 10*3/uL Monocytes # 0.13 L (0.20-1.00) 10*3/uL Eosinophils # 0.01 L (0.04-0.35) 10*3/uL PT 13.6 H (10.0-12.5) sec INR 1.3 H (<1.2) ABG pH (7.35-7.45) ABG pO2 (83-108) mmHg ABG Total CO2 (19-24) mmol/L ABG O2 Saturation (94-97) % ABG Hematocrit (34.0-46.0) % ABG Sodium (135-146) mmol/L ABG Ionized Calcium (4.5-5.3) mg/dL ABG Glucose (75-99) mg/dL Hemoglobin (13.0-17.5) gm/dL Sodium (137-145) mmol/L Chloride 110 H (98-107) mmol/L Carbon Dioxide 21 L (22-30) mmol/L Glucose 131 H (74-99) mg/dL POC Glucose (mg/dL) (70-110) mg/dL Calcium 8.3 L (8.4-10.2) mg/dL Magnesium 2.4 H (1.6-2.3) mg/dL Total Bilirubin 2.0 H (0.2-1.3) mg/dL Alkaline Phosphatase 26 L (38-126) U/L Total Protein 4.9 L (6.3-8.2) g/dL Albumin 3.2 L (3.5-5.0) g/dL Arterial Blood Glucose (75-99) mg/dL Crossmatch 04/28/25 04/28/25 04/28/25 Range/Units 15:13 15:18 16:23 RBC (4.40-5.60) 10*6/uL Hgb (13.0-17.0) g/dL Hct (39.6-50.0) % Plt Count (140-440) 10*3/uL MPV (9.5-12.2) fL Lymphocytes # (0.90-5.00) 10*3/uL Monocytes # (0.20-1.00) 10*3/uL Eosinophils # (0.04-0.35) 10*3/uL PT (10.0-12.5) sec INR (<1.2) ABG pH (7.35-7.45) ABG pO2 >420 H (83-108) mmHg ABG Total CO2 (19-24) mmol/L ABG O2 Saturation >100.0 H (94-97) % ABG Hematocrit (34.0-46.0) % ABG Sodium (135-146) mmol/L ABG Ionized Calcium (4.5-5.3) mg/dL ABG Glucose (75-99) mg/dL Hemoglobin 10.4 L (13.0-17.5) gm/dL Sodium (137-145) mmol/L Chloride (98-107) mmol/L Carbon Dioxide (22-30) mmol/L Glucose (74-99) mg/dL POC Glucose (mg/dL) 133 H 139 H (70-110) mg/dL Calcium (8.4-10.2) mg/dL Magnesium (1.6-2.3) mg/dL Total Bilirubin (0.2-1.3) mg/dL Alkaline Phosphatase (38-126) U/L Total Protein (6.3-8.2) g/dL Albumin (3.5-5.0) g/dL Arterial Blood Glucose (75-99) mg/dL Crossmatch 04/28/25 04/28/25 04/28/25 Range/Units 17:06 18:00 18:04 RBC 3.22 L (4.40-5.60) 10*6/uL Hgb 9.9 L (13.0-17.0) g/dL Hct 29.3 L (39.6-50.0) % Plt Count 112 L (140-440) 10*3/uL MPV (9.5-12.2) fL Lymphocytes # 0.40 L (0.90-5.00) 10*3/uL Monocytes # (0.20-1.00) 10*3/uL Eosinophils # 0.01 L (0.04-0.35) 10*3/uL PT (10.0-12.5) sec INR (<1.2) ABG pH (7.35-7.45) ABG pO2 (83-108) mmHg ABG Total CO2 (19-24) mmol/L ABG O2 Saturation (94-97) % ABG Hematocrit (34.0-46.0) % ABG Sodium (135-146) mmol/L ABG Ionized Calcium (4.5-5.3) mg/dL ABG Glucose (75-99) mg/dL Hemoglobin (13.0-17.5) gm/dL Sodium (137-145) mmol/L Chloride (98-107) mmol/L Carbon Dioxide (22-30) mmol/L Glucose (74-99) mg/dL POC Glucose (mg/dL) 136 H 147 H (70-110) mg/dL Calcium (8.4-10.2) mg/dL Magnesium (1.6-2.3) mg/dL Total Bilirubin (0.2-1.3) mg/dL Alkaline Phosphatase (38-126) U/L Total Protein (6.3-8.2) g/dL Albumin (3.5-5.0) g/dL Arterial Blood Glucose (75-99) mg/dL Crossmatch 04/28/25 04/28/25 04/28/25 Range/Units 18:55 19:37 19:43 RBC 2.78 L (4.40-5.60) 10*6/uL Hgb 8.8 L (13.0-17.0) g/dL Hct 25.2 L (39.6-50.0) % Plt Count 88 L (140-440) 10*3/uL MPV 8.9 L (9.5-12.2) fL Lymphocytes # 0.28 L (0.90-5.00) 10*3/uL Monocytes # (0.20-1.00) 10*3/uL Eosinophils # 0.01 L (0.04-0.35) 10*3/uL PT (10.0-12.5) sec INR (<1.2) ABG pH 7.34 L (7.35-7.45) ABG pO2 194 H (83-108) mmHg ABG Total CO2 25 H (19-24) mmol/L ABG O2 Saturation 99.9 H (94-97) % ABG Hematocrit (34.0-46.0) % ABG Sodium (135-146) mmol/L ABG Ionized Calcium (4.5-5.3) mg/dL ABG Glucose (75-99) mg/dL Hemoglobin 9.2 L (13.0-17.5) gm/dL Sodium (137-145) mmol/L Chloride (98-107) mmol/L Carbon Dioxide (22-30) mmol/L Glucose (74-99) mg/dL POC Glucose (mg/dL) 142 H (70-110) mg/dL Calcium (8.4-10.2) mg/dL Magnesium (1.6-2.3) mg/dL Total Bilirubin (0.2-1.3) mg/dL Alkaline Phosphatase (38-126) U/L Total Protein (6.3-8.2) g/dL Albumin (3.5-5.0) g/dL Arterial Blood Glucose (75-99) mg/dL Crossmatch 04/28/25 04/28/25 04/28/25 Range/Units 20:02 21:09 22:11 RBC (4.40-5.60) 10*6/uL Hgb (13.0-17.0) g/dL Hct (39.6-50.0) % Plt Count (140-440) 10*3/uL MPV (9.5-12.2) fL Lymphocytes # (0.90-5.00) 10*3/uL Monocytes # (0.20-1.00) 10*3/uL Eosinophils # (0.04-0.35) 10*3/uL PT (10.0-12.5) sec INR (<1.2) ABG pH (7.35-7.45) ABG pO2 (83-108) mmHg ABG Total CO2 (19-24) mmol/L ABG O2 Saturation (94-97) % ABG Hematocrit (34.0-46.0) % ABG Sodium (135-146) mmol/L ABG Ionized Calcium (4.5-5.3) mg/dL ABG Glucose (75-99) mg/dL Hemoglobin (13.0-17.5) gm/dL Sodium (137-145) mmol/L Chloride (98-107) mmol/L Carbon Dioxide (22-30) mmol/L Glucose (74-99) mg/dL POC Glucose (mg/dL) 134 H 131 H 124 H (70-110) mg/dL Calcium (8.4-10.2) mg/dL Magnesium (1.6-2.3) mg/dL Total Bilirubin (0.2-1.3) mg/dL Alkaline Phosphatase (38-126) U/L Total Protein (6.3-8.2) g/dL Albumin (3.5-5.0) g/dL Arterial Blood Glucose (75-99) mg/dL Crossmatch 04/28/25 04/29/25 04/29/25 Range/Units 22:58 00:15 01:01 RBC (4.40-5.60) 10*6/uL Hgb (13.0-17.0) g/dL Hct (39.6-50.0) % Plt Count (140-440) 10*3/uL MPV (9.5-12.2) fL Lymphocytes # (0.90-5.00) 10*3/uL Monocytes # (0.20-1.00) 10*3/uL Eosinophils # (0.04-0.35) 10*3/uL PT (10.0-12.5) sec INR (<1.2) ABG pH (7.35-7.45) ABG pO2 (83-108) mmHg ABG Total CO2 (19-24) mmol/L ABG O2 Saturation (94-97) % ABG Hematocrit (34.0-46.0) % ABG Sodium (135-146) mmol/L ABG Ionized Calcium (4.5-5.3) mg/dL ABG Glucose (75-99) mg/dL Hemoglobin (13.0-17.5) gm/dL Sodium (137-145) mmol/L Chloride (98-107) mmol/L Carbon Dioxide (22-30) mmol/L Glucose (74-99) mg/dL POC Glucose (mg/dL) 128 H 133 H 133 H (70-110) mg/dL Calcium (8.4-10.2) mg/dL Magnesium (1.6-2.3) mg/dL Total Bilirubin (0.2-1.3) mg/dL Alkaline Phosphatase (38-126) U/L Total Protein (6.3-8.2) g/dL Albumin (3.5-5.0) g/dL Arterial Blood Glucose (75-99) mg/dL Crossmatch 04/29/25 04/29/25 04/29/25 Range/Units 02:03 03:32 04:30 RBC 2.77 L (4.40-5.60) 10*6/uL Hgb 8.5 L (13.0-17.0) g/dL Hct 25.1 L (39.6-50.0) % Plt Count 92 L (140-440) 10*3/uL MPV 8.7 L (9.5-12.2) fL Lymphocytes # 0.47 L (0.90-5.00) 10*3/uL Monocytes # (0.20-1.00) 10*3/uL Eosinophils # 0.01 L (0.04-0.35) 10*3/uL PT (10.0-12.5) sec INR (<1.2) ABG pH (7.35-7.45) ABG pO2 (83-108) mmHg ABG Total CO2 (19-24) mmol/L ABG O2 Saturation (94-97) % ABG Hematocrit (34.0-46.0) % ABG Sodium (135-146) mmol/L ABG Ionized Calcium (4.5-5.3) mg/dL ABG Glucose (75-99) mg/dL Hemoglobin (13.0-17.5) gm/dL Sodium (137-145) mmol/L Chloride (98-107) mmol/L Carbon Dioxide (22-30) mmol/L Glucose (74-99) mg/dL POC Glucose (mg/dL) 129 H 121 H (70-110) mg/dL Calcium (8.4-10.2) mg/dL Magnesium (1.6-2.3) mg/dL Total Bilirubin (0.2-1.3) mg/dL Alkaline Phosphatase (38-126) U/L Total Protein (6.3-8.2) g/dL Albumin (3.5-5.0) g/dL Arterial Blood Glucose (75-99) mg/dL Crossmatch 04/29/25 04/29/25 04/29/25 Range/Units 04:30 04:36 06:35 RBC (4.40-5.60) 10*6/uL Hgb (13.0-17.0) g/dL Hct (39.6-50.0) % Plt Count (140-440) 10*3/uL MPV (9.5-12.2) fL Lymphocytes # (0.90-5.00) 10*3/uL Monocytes # (0.20-1.00) 10*3/uL Eosinophils # (0.04-0.35) 10*3/uL PT (10.0-12.5) sec INR (<1.2) ABG pH (7.35-7.45) ABG pO2 (83-108) mmHg ABG Total CO2 (19-24) mmol/L ABG O2 Saturation (94-97) % ABG Hematocrit (34.0-46.0) % ABG Sodium (135-146) mmol/L ABG Ionized Calcium (4.5-5.3) mg/dL ABG Glucose (75-99) mg/dL Hemoglobin (13.0-17.5) gm/dL Sodium 136 L (137-145) mmol/L Chloride (98-107) mmol/L Carbon Dioxide (22-30) mmol/L Glucose 111 H (74-99) mg/dL POC Glucose (mg/dL) 124 H 131 H (70-110) mg/dL Calcium 8.3 L (8.4-10.2) mg/dL Magnesium (1.6-2.3) mg/dL Total Bilirubin 2.6 H (0.2-1.3) mg/dL Alkaline Phosphatase 24 L (38-126) U/L Total Protein 4.9 L (6.3-8.2) g/dL Albumin 3.2 L (3.5-5.0) g/dL Arterial Blood Glucose (75-99) mg/dL Crossmatch - Imaging and Cardiology Chest x-ray: image reviewed Assessment and Plan Assessment: Triple-vessel coronary artery disease, status post four-vessel CABG Postoperative acute blood loss anemia and thrombocytopenia, expected given hemodilution and cardiopulmonary bypass pump History of coronary artery disease with myocardial infarction and previous PCI to the LAD and RCA in 2022 Preserved left ventricular function Hyperlipidemia Lifelong non-smoker but previous chew tobacco with cessation in March 2023 Strong family history of coronary disease Plan: Continue to maximize medical therapy with aspirin, statin, Plavix, beta-arina. Will increase beta-arina therapy as tolerated Discontinue IV nitro. Will start low-dose oral calcium channel arina for radial artery spasm prophylaxis Will monitor daily labs and x-rays, electrolyte replacement per protocol Encourage incentive spirometry use 10 times every hour while awake. Bronchodilators per pulmonology Increase activity, ambulate as tolerated. PT/OT/cardiac rehab consulted GI/DVT prophylaxis Pain control per current medication regimen. Robaxin added Insulin management per internal medicine, patient is not diabetic, preoperative hemoglobin A1c 5.7% Discontinue [place], connect Cordis to continuous CVP monitoring Discontinue VENUS drains Continue chest tubes for another 24 hours, monitor and record output Continue Cervantes catheter for another 24 hours. Continue to monitor and record strict accurate intake and output Daily weights More recommendations to follow as patient progresses
[2025-04-29 08:12] LABS: Glucose,Whole Blood 147 mg/dL (70-110)
--- NOTE | 2025-04-29 08:28 | XR ---
EXAMINATION TYPE: XR chest 1V portable DATE OF EXAM: 04/29/2025 6:04 AM COMPARISON: Chest radiograph from one day prior. CLINICAL INDICATION: Male, 60 years old with history of Post Operative Cardiac Surgery; [facility] TECHNIQUE: XR chest 1V portable Frontal view of the chest. FINDINGS: Lungs/Pleura: Blunting of the left costophrenic angle. There is no evidence of right pleural effusio n, focal consolidation, or pneumothorax Pulmonary vascularity: Unremarkable. Heart/mediastinum: Cardiomediastinal silhouette is unremarkable. Left atrial appendage occlusion collette ce is present. Musculoskeletal: No acute osseous pathology. Other findings: None Lines/Tubes: Interval removal of the endotracheal tube. Interval removal of the enteric tube, There is a [place]-Su catheter sheath in place. Left thoracotomy tube is present without evidence of pneumothorax. Drainage tubes with tips projecting over the mediastinum. IMPRESSION: 1. Postsurgical changes with lines and tubes as above. 2. Small left pleural effusion. [facility], , 04/29/2025 8:26 AM
[2025-04-29] MEDS: FUROSEMIDE 10 MG/ML 2 ML VIAL IV ONE (08:32)
[2025-04-29] MEDS: CLOPIDOGREL 75 MG TAB PO SCH (08:44)
[2025-04-29] MEDS: METOPROLOL TARTRATE 12.5 MG TAB PO SCH (08:44)
[2025-04-29] MEDS: ATORVASTATIN 40 MG TAB PO SCH (08:44)
[2025-04-29] MEDS: PANTOPRAZOLE 40 MG/10 ML VIAL IVP SCH (08:44)
[2025-04-29] MEDS: ASPIRIN 325 MG TAB PO SCH (08:44)
[2025-04-29] MEDS ORDERED: MAGNESIUM HYDROXIDE 2,400 MG/30 ML CUP PO PRN (09:00)
[2025-04-29] MEDS ORDERED: bisacodyL 10 MG SUPP RECTAL PRN (09:00)
[2025-04-29 09:04] LABS: Glucose,Whole Blood 140 mg/dL (70-110)
--- NOTE | 2025-04-29 09:57 | CONS ---
CONSULTATION HISTORY OF PRESENT ILLNESS: Harjit is a 60-year-old gentleman who is admitted to hospital electively for surgical revascularization. He has known CAD and has had prior angioplasty and recently had an abnormal stress test, for which he underwent cardiac catheterization that revealed a 50% left main stenosis with multivessel coronary artery disease. It is postop day #1 extubated. Remains in sinus rhythm and stable hemodynamically. His surgery involved CARBALLO to diagonal LAD, left radial artery graft to the OM, saphenous vein graft to the PLV. He also had an AtriClip. The patient is free of symptoms other than the chest discomfort related to the musculoskeletal chest discomfort. PAST MEDICAL HISTORY: Significant for multivessel coronary artery disease, hypertension, dyslipidemia. MEDICATIONS: At home included; 1. Zestril 5 mg daily. 2. Toprol-XL 25 mg daily. 3. Nexium. 4. Colchicine. 5. Lipitor. 6. Aspirin. The patient is currently on; 1. Aspirin. 2. Lipitor. 3. Norvasc. 4. Plavix. 5. Lopressor. ALLERGIES: There are no known drug allergies. FAMILY HISTORY: Negative for premature coronary artery disease. SOCIAL HISTORY: Negative for current smoking, EtOH abuse, or drug abuse. REVIEW OF SYSTEMS: review of systems has been performed, pertinents are as documented in history of presenting illness. LABORATORY DATA: Lab show a hemoglobin of 8.5, platelet count is 92, potassium is 4.4, creatinine is 0.8. PHYSICAL EXAMINATION: GENERAL: The patient is comfortable at rest. VITAL SIGNS: Stable. NECK: There is no jugular venous distention. Carotid upstroke is normal. There is no bruit. CHEST: Reveals diminished air entry bilaterally. HEART: Reveals first and second heart sounds. No gallop. EXTREMITIES: Did not reveal any edema. ASSESSMENT AND PLAN: Coronary artery disease, status post coronary artery bypass grafting postop day #1. The patient is doing well. Continue current medications and continue with incentive spirometry. MMODL / IJN: [id number] /
[2025-04-29 09:58] LABS: Glucose,Whole Blood 135 mg/dL (70-110)
[2025-04-29] MEDS: methocarbamoL 750 MG TAB PO PRN (10:28)
[2025-04-29 11:05] VITALS: BMI 29.9
[2025-04-29 11:13] LABS: Glucose,Whole Blood 122 mg/dL (70-110)
[2025-04-29 12:10] LABS: Glucose,Whole Blood 112 mg/dL (70-110)
[2025-04-29 13:02] LABS: Glucose,Whole Blood 131 mg/dL (70-110)
[2025-04-29 14:17] LABS: Glucose,Whole Blood 128 mg/dL (70-110)
--- NOTE | 2025-04-29 15:05 | P.CONS ---
History of Present Illness - Reason for Consult Consult date: 04/29/25 - Chief Complaint Medical management - History of Present Illness 60-year-old man with medical history of CAD status post PCI and four-vessel CABG, hypertension, hyperlipidemia presented for elective CABG following positive stress test in the outpatient setting. Patient is doing well on postop day 1 status post four-vessel CABG. He has no complaints at this time. Blood sugars are well-controlled. He is progressing well following his procedure. Extubated on postop day 0. Mediastinal chest tube and pleural chest tubes remain in place, [place] catheter remains in place. Patient has a central line, arterial line and [place] catheter. He is on approximately 2 L of nasal cannula. Blood pressures are in the 90s over 50s with heart rates in the 80s, saturating 96%. CBC demonstrates anemia of 8.5, platelets of 92; basic metabolic panel is unremarkable. Liver function test show total bilirubin of 2.6. Chest x-ray shows overexposed technique, low lung volumes, status post CABG with multiple lines. All Systems reviewed and pertinent positives and negatives noted in HPI, all other symptoms are negative Gen: In NAD, non-toxic HEENT: normocephalic, atraumatic, hearing acuity is intant, mucous membranes moist CVS: perfusing all extremities well, no pitting edema, Respiratory: symmetric chest expansion, no accessory muscle use, GI: soft, NTTP, ND, : no suprapubic tenderness, no CVA tenderness MSK/Derm: no rashes, cyanosis Neuro: CN II-XII intact, no motor weakness, Psych: cooperative, euthymic mood, judgment and insight is intact Assessment/plan: Acute blood loss anemia, expected outcome of surgery Thrombocytopenia CAD status post CABG, postop day 1 -Recommend monitoring CBC and initiating iron daily, transfuse for hemoglobin less than 8 - DVT prophylaxis with heparin versus enoxaparin despite thrombocytopenia is acceptable Hypertension Hyperlipidemia Former tobacco smoker - Home medications reviewed and reconciled Patient is full code DVT prophylaxis as above Past Medical History Past Medical History: Coronary Artery Disease (CAD), GERD/Reflux, Hyperlipidemia, Myocardial Infarction (NH) Additional Past Medical History / Comment(s): recent stress test & echo, 4 cardiac stents total Last Myocardial Infarction Date:: 03-24-23 History of Any Multi-Drug Resistant Organisms: None Reported Past Surgical History: Cholecystectomy, Heart Catheterization, Heart Catheterization With Stent Additional Past Surgical History / Comment(s): recent cardiac cath. Past Anesthesia/Blood Transfusion Reactions: No Reported Reaction Date of Last Stent Placement:: March 2023 Smoking Status: Never smoker - Past Family History Mother Family Medical History: Coronary Artery Disease (CAD) Sister(s) Family Medical History: Coronary Artery Disease (CAD) Father Family Medical History: Renal Disease Additional Family Medical History / Comment(s): Father of kidney disease Medications and Allergies Home Medications Medication Instructions Recorded Confirmed Type Aspirin 81 mg PO DAILY #90 tab 03/27/23 04/28/25 Rx Atorvastatin [Lipitor] 80 mg PO DAILY #90 tab 03/27/23 04/28/25 Rx Metoprolol Succinate (ER) [Toprol 25 mg PO DAILY #90 tab 03/27/23 04/28/25 Rx XL] lisinopriL [Zestril] 5 mg PO DAILY 04/07/23 04/28/25 History Colchicine 0.6 mg PO DAILY 04/02/25 04/28/25 History Esomeprazole Magnesium [NexIUM 40 mg PO DAILY 04/25/25 04/28/25 History 24Hr] Mupirocin [Mupirocin 2%] 1 applic NASAL BID #1 tub 04/25/25 04/28/25 Rx Nitroglycerin Sl Tabs [Nitrostat] 0.4 mg SUBLINGUAL Q5M PRN 04/25/25 04/28/25 History Allergies Allergy/AdvReac Type Severity Reaction Status Date / Time No Known Allergies Allergy Verified 04/28/25 06:12 Physical Exam Osteopathic Statement: *. No significant issues noted on an osteopathic structural exam other than those noted in the History and Physical/Consult. Vitals: Vital Signs Temp Pulse Resp BP Pulse Ox FiO2 04/29/25 14:15 82 20 97/58 96 04/29/25 14:00 80 16 94/57 96 04/29/25 13:48 83 17 95 04/29/25 13:30 81 13 92 L 04/29/25 13:15 82 15 93 L 04/29/25 13:00 86 17 116/64 92 L 04/29/25 12:45 85 14 91 L 04/29/25 12:30 91 25 H 92 L 04/29/25 12:15 92 22 116/64 94 L 04/29/25 12:00 99.1 F 92 29 H 97/57 90 L 04/29/25 11:30 84 16 93 L 04/29/25 11:15 94 28 H 95 04/29/25 11:00 85 14 103/61 95 04/29/25 10:45 89 16 95 04/29/25 10:30 85 15 95 04/29/25 10:15 88 17 94 L 04/29/25 10:00 90 39 H 125/78 98 04/29/25 09:45 85 14 95 04/29/25 09:30 89 16 96 04/29/25 09:15 91 19 97 04/29/25 09:00 101 H 22 105/57 98 04/29/25 08:45 101 H 20 95 04/29/25 08:30 92 18 94 L 04/29/25 08:24 96 04/29/25 08:23 88 04/29/25 08:15 84 13 100 04/29/25 08:11 85 04/29/25 08:00 98.2 F 89 15 105/59 93 L 04/29/25 07:45 86 13 92 L 04/29/25 07:30 87 13 92 L 04/29/25 07:15 85 15 93 L 04/29/25 07:00 87 19 101/67 93 L 04/29/25 06:45 86 16 101/67 98 04/29/25 06:30 83 32 H 94 L 04/29/25 06:15 87 15 101/67 91 L 04/29/25 06:00 87 22 100/67 97 04/29/25 05:45 84 18 98/60 98 04/29/25 05:30 80 20 98/60 99 04/29/25 05:15 77 25 H 98/60 100 04/29/25 05:00 71 13 108/58 99 04/29/25 04:45 78 16 108/58 100 04/29/25 04:30 79 12 108/58 98 04/29/25 04:15 77 11 L 108/58 98 04/29/25 04:00 99.0 F 77 12 96/62 98 04/29/25 03:45 79 11 L 96/62 98 04/29/25 03:30 82 13 96/62 99 04/29/25 03:15 81 12 96/62 97 04/29/25 03:00 79 13 105/63 97 04/29/25 02:45 80 14 105/63 98 04/29/25 02:30 78 14 105/63 100 04/29/25 02:15 79 20 105/63 100 04/29/25 02:00 81 14 101/62 98 04/29/25 01:45 81 13 101/62 99 04/29/25 01:30 82 12 101/62 99 04/29/25 01:15 80 13 101/62 98 04/29/25 01:00 78 13 98/75 99 04/29/25 00:45 78 14 98 04/29/25 00:30 11 L 98/75 100 04/29/25 00:15 80 14 98/75 98 04/29/25 00:00 100.2 F H 82 22 108/61 100 04/28/25 23:45 80 16 108/61 100 04/28/25 23:30 80 16 108/61 100 04/28/25 23:15 80 16 108/61 98 04/28/25 23:00 80 24 96/59 100 04/28/25 22:45 88 20 96/59 98 04/28/25 22:30 80 15 96/59 100 04/28/25 22:29 82 14 96/59 100 04/28/25 22:15 80 15 96/59 99 04/28/25 22:00 80 15 93/57 99 04/28/25 21:45 84 12 93/57 100 04/28/25 21:30 80 14 93/57 100 04/28/25 21:15 90 32 H 93/57 100 04/28/25 21:00 80 14 86/54 100 04/28/25 20:45 80 15 86/54 100 04/28/25 20:30 82 14 86/54 100 04/28/25 20:15 80 15 86/54 100 04/28/25 20:05 84 18 04/28/25 20:03 99 04/28/25 20:00 100.9 F H 83 17 94/57 100 04/28/25 19:58 84 18 04/28/25 19:45 86 25 H 94/57 100 04/28/25 19:30 78 17 89/45 100 04/28/25 19:15 76 46 H 89/45 100 06/16/25 19:00 89 26 H 100 50 04/28/25 18:45 73 14 100 04/28/25 18:30 76 19 100 04/28/25 18:15 82 14 101/68 100 04/28/25 18:00 82 14 100 50 04/28/25 17:45 86 14 100 04/28/25 17:30 94 22 100 04/28/25 17:15 86 14 100 04/28/25 17:00 89 14 100 50 04/28/25 16:45 89 14 100 04/28/25 16:30 88 19 100 04/28/25 16:15 82 14 100 04/28/25 16:00 98.8 F 80 16 100 100 04/28/25 15:45 98.4 F 76 15 100 04/28/25 15:30 77 14 100 04/28/25 15:26 50 04/28/25 15:15 69 14 100 50 04/28/25 15:00 70 12 100 Intake and Output 04/28/25 04/29/25 04/29/25 22:59 06:59 14:59 Intake Total 461.296 694.808 496.983 Output Total 1921 817 597 Balance -1459.704 -122.192 -100.017 Intake: IV 396.0 694.0 473.5 ACETAMINOPHEN IV (For NPO 100 ) 1,000 mg In Empty Bag 1 bag @ 400 mls/hr IVPB Q6HR [facility] Rx#:[id number] CO/CI 60 60 Nitroglycerin-D5w Pmx 50 9.0 12.0 1.5 mg In Dextrose/Water 1 250ml.bag @ Per Protocol IV ONCE ONE Rx#:[id number] Pressure Bags 27 72 72 Sodium Chloride 0.9% 1, 150 400 400 000 ml @ 20 mls/hr IV . Q24H [facility] Rx#:[id number] Sodium Chloride 0.9% 50 150 ml @ 0 mls/hr IV .STK-MED ONE with ceFAZolin 2,000 mg Rx#:[id number] ceFAZolin 2 gm In 50 Dextrose 5% in Water 50 ml @ 100 mls/hr IVPB Q8HR [facility] Rx#:[id number] Intake, IV Titration 65.296 0.808 23.483 Amount Dexmedetomidine/0.9% NaCl 13.62 (Pmx) 400 mcg In Empty Bag 1 bag @ Titrate IV . Q0M [facility] Rx#:[id number] Insulin Regular 100 unit 9.453 0.808 23.483 In Sodium Chloride 0.9% 100 ml @ Per Protocol IV .Q0M [facility] Rx#:[id number] propofoL 1,000 mg In 42.223 Empty Bag 1 bag @ Titrate IV .Q0M [facility] Rx#: [id number] Output: Chest Tube Drainage 926 372 212 Chest Tube Mediastinal 340 110 40 Chest Tube Right Lateral 146 32 22 Chest Left Lateral Chest 440 230 150 Drainage 0 50 0 Left Wrist 0 20 0 Right Calf 0 30 0 Urine 995 395 385 Other: Voiding Method Indwelling Catheter Indwelling Catheter Indwelling Catheter Weight 91.9 kg 91.9 kg ABP, PAP, CO, CI - Last 8 Hours Arterial Blood Pressure 89/48 Arterial Blood Pressure 84/43 Arterial Blood Pressure 86/42 Arterial Blood Pressure 91/41 Arterial Blood Pressure 94/42 Arterial Blood Pressure 84/44 Arterial Blood Pressure 93/42 Arterial Blood Pressure 118/54 Arterial Blood Pressure 95/49 Arterial Blood Pressure 108/53 Arterial Blood Pressure 101/45 Arterial Blood Pressure 120/46 Arterial Blood Pressure 104/51 Arterial Blood Pressure 124/52 Arterial Blood Pressure 93/46 Arterial Blood Pressure 117/48 Arterial Blood Pressure 90/41 Arterial Blood Pressure 122/49 Arterial Blood Pressure 120/50 Arterial Blood Pressure 154/57 Arterial Blood Pressure 161/58 Arterial Blood Pressure 144/50 Arterial Blood Pressure 119/47 Arterial Blood Pressure 116/48 Arterial Blood Pressure 113/44 Arterial Blood Pressure 112/46 Arterial Blood Pressure 115/49 Arterial Blood Pressure 117/48 Arterial Blood Pressure 117/48 Pulmonary Artery Pressure 22/6 Pulmonary Artery Pressure 20/7 Pulmonary Artery Pressure 21/7 Pulmonary Artery Pressure 24/9 Pulmonary Artery Pressure 21/6 Pulmonary Artery Pressure 22/9 Pulmonary Artery Pressure 22/8 Pulmonary Artery Pressure 22/7 Pulmonary Artery Pressure 24/9 Pulmonary Artery Pressure 27/10 Pulmonary Artery Pressure 29/12 Pulmonary Artery Pressure 22/8 Pulmonary Artery Pressure 21/8 Pulmonary Artery Pressure 21/8 Pulmonary Artery Pressure 25/8 Pulmonary Artery Pressure 27/9 Pulmonary Artery Pressure 27/9 Pulmonary Artery Pressure 27/9 Pulmonary Artery Pressure 22/7 Results CBC & Chem 7: 04/29/25 04:30 04/29/25 04:30 Labs: Abnormal Lab Results - Last 24 Hours (Table) 04/25/25 04/28/25 04/28/25 Range/Units 08:17 14:36 14:36 RBC 3.15 L (4.40-5.60) 10*6/uL Hgb 9.6 L D (13.0-17.0) g/dL Hct 28.4 L (39.6-50.0) % Plt Count 92 L D (140-440) 10*3/uL MPV 9.1 L (9.5-12.2) fL Lymphocytes # (0.90-5.00) 10*3/uL Monocytes # 0.13 L (0.20-1.00) 10*3/uL Eosinophils # 0.01 L (0.04-0.35) 10*3/uL PT 13.6 H (10.0-12.5) sec INR 1.3 H (<1.2) ABG pH (7.35-7.45) ABG pO2 (83-108) mmHg ABG Total CO2 (19-24) mmol/L ABG O2 Saturation (94-97) % Hemoglobin (13.0-17.5) gm/dL Sodium (137-145) mmol/L Chloride (98-107) mmol/L Carbon Dioxide (22-30) mmol/L Glucose (74-99) mg/dL POC Glucose (mg/dL) (70-110) mg/dL Calcium (8.4-10.2) mg/dL Magnesium (1.6-2.3) mg/dL Total Bilirubin (0.2-1.3) mg/dL Alkaline Phosphatase (38-126) U/L Total Protein (6.3-8.2) g/dL Albumin (3.5-5.0) g/dL Crossmatch See Detail 04/28/25 04/28/25 04/28/25 Range/Units 14:36 15:13 15:18 RBC (4.40-5.60) 10*6/uL Hgb (13.0-17.0) g/dL Hct (39.6-50.0) % Plt Count (140-440) 10*3/uL MPV (9.5-12.2) fL Lymphocytes # (0.90-5.00) 10*3/uL Monocytes # (0.20-1.00) 10*3/uL Eosinophils # (0.04-0.35) 10*3/uL PT (10.0-12.5) sec INR (<1.2) ABG pH (7.35-7.45) ABG pO2 >420 H (83-108) mmHg ABG Total CO2 (19-24) mmol/L ABG O2 Saturation >100.0 H (94-97) % Hemoglobin 10.4 L (13.0-17.5) gm/dL Sodium (137-145) mmol/L Chloride 110 H (98-107) mmol/L Carbon Dioxide 21 L (22-30) mmol/L Glucose 131 H (74-99) mg/dL POC Glucose (mg/dL) 133 H (70-110) mg/dL Calcium 8.3 L (8.4-10.2) mg/dL Magnesium 2.4 H (1.6-2.3) mg/dL Total Bilirubin 2.0 H (0.2-1.3) mg/dL Alkaline Phosphatase 26 L (38-126) U/L Total Protein 4.9 L (6.3-8.2) g/dL Albumin 3.2 L (3.5-5.0) g/dL Crossmatch 04/28/25 04/28/25 04/28/25 Range/Units 16:23 17:06 18:00 RBC 3.22 L (4.40-5.60) 10*6/uL Hgb 9.9 L (13.0-17.0) g/dL Hct 29.3 L (39.6-50.0) % Plt Count 112 L (140-440) 10*3/uL MPV (9.5-12.2) fL Lymphocytes # 0.40 L (0.90-5.00) 10*3/uL Monocytes # (0.20-1.00) 10*3/uL Eosinophils # 0.01 L (0.04-0.35) 10*3/uL PT (10.0-12.5) sec INR (<1.2) ABG pH (7.35-7.45) ABG pO2 (83-108) mmHg ABG Total CO2 (19-24) mmol/L ABG O2 Saturation (94-97) % Hemoglobin (13.0-17.5) gm/dL Sodium (137-145) mmol/L Chloride (98-107) mmol/L Carbon Dioxide (22-30) mmol/L Glucose (74-99) mg/dL POC Glucose (mg/dL) 139 H 136 H (70-110) mg/dL Calcium (8.4-10.2) mg/dL Magnesium (1.6-2.3) mg/dL Total Bilirubin (0.2-1.3) mg/dL Alkaline Phosphatase (38-126) U/L Total Protein (6.3-8.2) g/dL Albumin (3.5-5.0) g/dL Crossmatch 04/28/25 04/28/25 04/28/25 Range/Units 18:04 18:55 19:37 RBC (4.40-5.60) 10*6/uL Hgb (13.0-17.0) g/dL Hct (39.6-50.0) % Plt Count (140-440) 10*3/uL MPV (9.5-12.2) fL Lymphocytes # (0.90-5.00) 10*3/uL Monocytes # (0.20-1.00) 10*3/uL Eosinophils # (0.04-0.35) 10*3/uL PT (10.0-12.5) sec INR (<1.2) ABG pH 7.34 L (7.35-7.45) ABG pO2 194 H (83-108) mmHg ABG Total CO2 25 H (19-24) mmol/L ABG O2 Saturation 99.9 H (94-97) % Hemoglobin 9.2 L (13.0-17.5) gm/dL Sodium (137-145) mmol/L Chloride (98-107) mmol/L Carbon Dioxide (22-30) mmol/L Glucose (74-99) mg/dL POC Glucose (mg/dL) 147 H 142 H (70-110) mg/dL Calcium (8.4-10.2) mg/dL Magnesium (1.6-2.3) mg/dL Total Bilirubin (0.2-1.3) mg/dL Alkaline Phosphatase (38-126) U/L Total Protein (6.3-8.2) g/dL Albumin (3.5-5.0) g/dL Crossmatch 04/28/25 04/28/25 04/28/25 Range/Units 19:43 20:02 21:09 RBC 2.78 L (4.40-5.60) 10*6/uL Hgb 8.8 L (13.0-17.0) g/dL Hct 25.2 L (39.6-50.0) % Plt Count 88 L (140-440) 10*3/uL MPV 8.9 L (9.5-12.2) fL Lymphocytes # 0.28 L (0.90-5.00) 10*3/uL Monocytes # (0.20-1.00) 10*3/uL Eosinophils # 0.01 L (0.04-0.35) 10*3/uL PT (10.0-12.5) sec INR (<1.2) ABG pH (7.35-7.45) ABG pO2 (83-108) mmHg ABG Total CO2 (19-24) mmol/L ABG O2 Saturation (94-97) % Hemoglobin (13.0-17.5) gm/dL Sodium (137-145) mmol/L Chloride (98-107) mmol/L Carbon Dioxide (22-30) mmol/L Glucose (74-99) mg/dL POC Glucose (mg/dL) 134 H 131 H (70-110) mg/dL Calcium (8.4-10.2) mg/dL Magnesium (1.6-2.3) mg/dL Total Bilirubin (0.2-1.3) mg/dL Alkaline Phosphatase (38-126) U/L Total Protein (6.3-8.2) g/dL Albumin (3.5-5.0) g/dL Crossmatch 04/28/25 04/28/25 04/29/25 Range/Units 22:11 22:58 00:15 RBC (4.40-5.60) 10*6/uL Hgb (13.0-17.0) g/dL Hct (39.6-50.0) % Plt Count (140-440) 10*3/uL MPV (9.5-12.2) fL Lymphocytes # (0.90-5.00) 10*3/uL Monocytes # (0.20-1.00) 10*3/uL Eosinophils # (0.04-0.35) 10*3/uL PT (10.0-12.5) sec INR (<1.2) ABG pH (7.35-7.45) ABG pO2 (83-108) mmHg ABG Total CO2 (19-24) mmol/L ABG O2 Saturation (94-97) % Hemoglobin (13.0-17.5) gm/dL Sodium (137-145) mmol/L Chloride (98-107) mmol/L Carbon Dioxide (22-30) mmol/L Glucose (74-99) mg/dL POC Glucose (mg/dL) 124 H 128 H 133 H (70-110) mg/dL Calcium (8.4-10.2) mg/dL Magnesium (1.6-2.3) mg/dL Total Bilirubin (0.2-1.3) mg/dL Alkaline Phosphatase (38-126) U/L Total Protein (6.3-8.2) g/dL Albumin (3.5-5.0) g/dL Crossmatch 04/29/25 04/29/25 04/29/25 Range/Units 01:01 02:03 03:32 RBC (4.40-5.60) 10*6/uL Hgb (13.0-17.0) g/dL Hct (39.6-50.0) % Plt Count (140-440) 10*3/uL MPV (9.5-12.2) fL Lymphocytes # (0.90-5.00) 10*3/uL Monocytes # (0.20-1.00) 10*3/uL Eosinophils # (0.04-0.35) 10*3/uL PT (10.0-12.5) sec INR (<1.2) ABG pH (7.35-7.45) ABG pO2 (83-108) mmHg ABG Total CO2 (19-24) mmol/L ABG O2 Saturation (94-97) % Hemoglobin (13.0-17.5) gm/dL Sodium (137-145) mmol/L Chloride (98-107) mmol/L Carbon Dioxide (22-30) mmol/L Glucose (74-99) mg/dL POC Glucose (mg/dL) 133 H 129 H 121 H (70-110) mg/dL Calcium (8.4-10.2) mg/dL Magnesium (1.6-2.3) mg/dL Total Bilirubin (0.2-1.3) mg/dL Alkaline Phosphatase (38-126) U/L Total Protein (6.3-8.2) g/dL Albumin (3.5-5.0) g/dL Crossmatch 04/29/25 04/29/25 04/29/25 Range/Units 04:30 04:30 04:36 RBC 2.77 L (4.40-5.60) 10*6/uL Hgb 8.5 L (13.0-17.0) g/dL Hct 25.1 L (39.6-50.0) % Plt Count 92 L (140-440) 10*3/uL MPV 8.7 L (9.5-12.2) fL Lymphocytes # 0.47 L (0.90-5.00) 10*3/uL Monocytes # (0.20-1.00) 10*3/uL Eosinophils # 0.01 L (0.04-0.35) 10*3/uL PT (10.0-12.5) sec INR (<1.2) ABG pH (7.35-7.45) ABG pO2 (83-108) mmHg ABG Total CO2 (19-24) mmol/L ABG O2 Saturation (94-97) % Hemoglobin (13.0-17.5) gm/dL Sodium 136 L (137-145) mmol/L Chloride (98-107) mmol/L Carbon Dioxide (22-30) mmol/L Glucose 111 H (74-99) mg/dL POC Glucose (mg/dL) 124 H (70-110) mg/dL Calcium 8.3 L (8.4-10.2) mg/dL Magnesium (1.6-2.3) mg/dL Total Bilirubin 2.6 H (0.2-1.3) mg/dL Alkaline Phosphatase 24 L (38-126) U/L Total Protein 4.9 L (6.3-8.2) g/dL Albumin 3.2 L (3.5-5.0) g/dL Crossmatch 04/29/25 04/29/25 04/29/25 Range/Units 06:35 08:09 09:03 RBC (4.40-5.60) 10*6/uL Hgb (13.0-17.0) g/dL Hct (39.6-50.0) % Plt Count (140-440) 10*3/uL MPV (9.5-12.2) fL Lymphocytes # (0.90-5.00) 10*3/uL Monocytes # (0.20-1.00) 10*3/uL Eosinophils # (0.04-0.35) 10*3/uL PT (10.0-12.5) sec INR (<1.2) ABG pH (7.35-7.45) ABG pO2 (83-108) mmHg ABG Total CO2 (19-24) mmol/L ABG O2 Saturation (94-97) % Hemoglobin (13.0-17.5) gm/dL Sodium (137-145) mmol/L Chloride (98-107) mmol/L Carbon Dioxide (22-30) mmol/L Glucose (74-99) mg/dL POC Glucose (mg/dL) 131 H 147 H 140 H (70-110) mg/dL Calcium (8.4-10.2) mg/dL Magnesium (1.6-2.3) mg/dL Total Bilirubin (0.2-1.3) mg/dL Alkaline Phosphatase (38-126) U/L Total Protein (6.3-8.2) g/dL Albumin (3.5-5.0) g/dL Crossmatch 04/29/25 04/29/25 04/29/25 Range/Units 09:57 11:11 12:08 RBC (4.40-5.60) 10*6/uL Hgb (13.0-17.0) g/dL Hct (39.6-50.0) % Plt Count (140-440) 10*3/uL MPV (9.5-12.2) fL Lymphocytes # (0.90-5.00) 10*3/uL Monocytes # (0.20-1.00) 10*3/uL Eosinophils # (0.04-0.35) 10*3/uL PT (10.0-12.5) sec INR (<1.2) ABG pH (7.35-7.45) ABG pO2 (83-108) mmHg ABG Total CO2 (19-24) mmol/L ABG O2 Saturation (94-97) % Hemoglobin (13.0-17.5) gm/dL Sodium (137-145) mmol/L Chloride (98-107) mmol/L Carbon Dioxide (22-30) mmol/L Glucose (74-99) mg/dL POC Glucose (mg/dL) 135 H 122 H 112 H (70-110) mg/dL Calcium (8.4-10.2) mg/dL Magnesium (1.6-2.3) mg/dL Total Bilirubin (0.2-1.3) mg/dL Alkaline Phosphatase (38-126) U/L Total Protein (6.3-8.2) g/dL Albumin (3.5-5.0) g/dL Crossmatch 04/29/25 04/29/25 Range/Units 13:00 14:16 RBC (4.40-5.60) 10*6/uL Hgb (13.0-17.0) g/dL Hct (39.6-50.0) % Plt Count (140-440) 10*3/uL MPV (9.5-12.2) fL Lymphocytes # (0.90-5.00) 10*3/uL Monocytes # (0.20-1.00) 10*3/uL Eosinophils # (0.04-0.35) 10*3/uL PT (10.0-12.5) sec INR (<1.2) ABG pH (7.35-7.45) ABG pO2 (83-108) mmHg ABG Total CO2 (19-24) mmol/L ABG O2 Saturation (94-97) % Hemoglobin (13.0-17.5) gm/dL Sodium (137-145) mmol/L Chloride (98-107) mmol/L Carbon Dioxide (22-30) mmol/L Glucose (74-99) mg/dL POC Glucose (mg/dL) 131 H 128 H (70-110) mg/dL Calcium (8.4-10.2) mg/dL Magnesium (1.6-2.3) mg/dL Total Bilirubin (0.2-1.3) mg/dL Alkaline Phosphatase (38-126) U/L Total Protein (6.3-8.2) g/dL Albumin (3.5-5.0) g/dL Crossmatch
[2025-04-29 15:08] LABS: Glucose,Whole Blood 116 mg/dL (70-110)
[2025-04-29] MEDS: amLODIPine 2.5 MG TAB PO SCH (15:16)
[2025-04-29 15:59] LABS: Glucose,Whole Blood 119 mg/dL (70-110)
[2025-04-29 17:14] LABS: Glucose,Whole Blood 121 mg/dL (70-110)
[2025-04-29] MEDS: ASCORBIC ACID 500 MG TAB PO SCH (17:41)
[2025-04-29] MEDS: FERROUS SULFATE 325 MG TAB PO SCH (17:41)
[2025-04-29 18:18] LABS: Glucose,Whole Blood 119 mg/dL (70-110)
[2025-04-29 18:50] LABS: Glucose,Whole Blood 117 mg/dL (70-110)
[2025-04-29 20:14] LABS: Glucose,Whole Blood 119 mg/dL (70-110)
[2025-04-29 20:58] LABS: Glucose,Whole Blood 124 mg/dL (70-110)
[2025-04-29 22:09] LABS: Glucose,Whole Blood 126 mg/dL (70-110)
[2025-04-29 23:02] LABS: Glucose,Whole Blood 134 mg/dL (70-110)
[2025-04-30 00:06] LABS: Glucose,Whole Blood 127 mg/dL (70-110)
[2025-04-30 01:05] LABS: Glucose,Whole Blood 124 mg/dL (70-110)
[2025-04-30 02:04] LABS: Glucose,Whole Blood 116 mg/dL (70-110)
[2025-04-30 03:02] LABS: Glucose,Whole Blood 115 mg/dL (70-110)
[2025-04-30 04:09] LABS: Glucose,Whole Blood 112 mg/dL (70-110)
[2025-04-30 04:29] LABS: Basophils # (A) 0.01 10*3/uL (0.00-0.10); Basophils % (A) 0.2 %; Eosinophils # (A) 0.26 10*3/uL (0.04-0.35); Eosinophils % (A) 4.3 %; HCT 22.5 % (39.6-50.0); HGB 7.5 g/dL (13.0-17.0); Lymphocytes # (A) 0.96 10*3/uL (0.90-5.00); MCH 30.4 pg (27.0-32.0); MCHC 33.3 g/dL (32.0-37.0); MCV 91.1 fL (80.0-97.0); Mean Platelet Volume 9.1 fL (9.5-12.2); Monocytes # (A) 0.34 10*3/uL (0.20-1.00); Monocytes % (A) 5.7 %; Neutrophils % (A) 73.5 %; RBC 2.47 10*6/uL (4.40-5.60); WBC 5.99 10*3/uL (4.50-10.00)
[2025-04-30 04:35] LABS: Ionized Calcium 4.6 mg/dL (4.5-5.3)
[2025-04-30 04:37] LABS: Platelet Count 79 10*3/uL (140-440)
[2025-04-30 04:52] LABS: ALT 13 U/L (4-49); AST 43 U/L (17-59); African American GFR (CKD) >90 (>60 ml/min/1.73 sqM); Albumin 2.8 g/dL (3.5-5.0); Alkaline Phosphatase 31 U/L (38-126); Anion Gap 7 mmol/L; Blood Urea Nitrogen 16 mg/dL (9-20); Calcium 8.4 mg/dL (8.4-10.2); Carbon Dioxide 23 mmol/L (22-30); Chloride 101 mmol/L (98-107); Glucose 100 mg/dL (74-99); Non-African American GFR(CKD) >90 (>60 ml/min/1.73 sqM); Potassium 3.9 mmol/L (3.5-5.1); Sodium 131 mmol/L (137-145); Total Bilirubin 2.4 mg/dL (0.2-1.3); Total Protein 4.6 g/dL (6.3-8.2)
[2025-04-30 05:06] LABS: Glucose,Whole Blood 115 mg/dL (70-110)
[2025-04-30] MEDS: POTASSIUM BICARBONATE/CIT AC 20 MEQ TABLET.EFF NG-TUBE SCH (05:25)
[2025-04-30 06:05] LABS: Glucose,Whole Blood 112 mg/dL (70-110)
[2025-04-30] MEDS: PANTOPRAZOLE 40 MG TABLET PO SCH (06:51)
[2025-04-30 07:13] LABS: Glucose,Whole Blood 109 mg/dL (70-110)
--- NOTE | 2025-04-30 08:19 | P.PN ---
Subjective Progress Note Date: 04/30/25 Principal diagnosis: Triple-vessel coronary artery disease. History of coronary artery disease with myocardial infarction and previous PCI to the LAD and RCA in 2022, preserved le ft ventricular function, hyperlipidemia, lifelong non-smoker but previous chew tobacco with cessation in March 2023, strong family history of coronary disease POD #2 multiple arterial quadruple coronary artery bypass grafting using the in situ left internal mammary artery sequentially to the diagonal artery, then to the left anterior descending artery, left radial artery from the aorta to the first obtuse marginal artery, reverse saphenous vein graft from the aorta to the posterior lateral branch of the right coronary artery, exclusion of the left atrial appendage using a 35mm AtriClip, endoscopic harvesting of the left radial artery, endoscopic harvesting of the right greater saphenous vein, intraoperative graft flow measurements using the [employer] system, intraoperative transesophageal echocardiogram and epiaortic scanning Postoperative acute blood loss anemia and thrombocytopenia, expected given hemodilution and cardiopulmonary bypass pump The patient was seen and examined this morning sitting up in recliner in the intensive care unit in no acute distress. Currently in sinus tach, hemodynamically stable although blood pressures soft but mean arterial pressure stable. Remains on room air with oxygen saturation in the mid 90s, able to achieve 6300-0113 mL on incentive spirometry. States pain is controlled on current medication regimen, denies shortness of breath. Chest x-ray, labs reviewed. Right internal jugular cordis, right radial arterial line, mediastinal/right/left pleural chest tubes all remain. Patient did ambulate in the hallway with assistance. No other new concerns. Objective - Vital Signs Vital signs: Vital Signs Temp 97.4 F L 04/30/25 04:00 Pulse 107 H 04/30/25 07:00 Resp 26 H 04/30/25 07:00 BP 105/56 04/30/25 07:00 Pulse Ox 94 L 04/30/25 07:00 FiO2 50 04/28/25 19:00 Intake & Output 04/29/25 04/30/25 04/30/25 18:59 06:59 18:59 Intake Total 738.471 721.231 59 Output Total 772 475 30 Balance -33.529 246.231 29 Weight 91.9 kg 94.4 kg Intake: IV 709.5 708 59 Nitroglycerin-D5w Pmx 50 1.5 mg In Dextrose/Water 1 250ml.bag @ Per Protocol IV ONCE ONE Rx#:[id number] Pressure Bags 108 108 9 Sodium Chloride 0.9% 1, 600 600 50 000 ml @ 20 mls/hr IV . Q24H [facility] Rx#:[id number] Intake, IV Titration 28.971 13.231 Amount Insulin Regular 100 unit 28.971 13.231 In Sodium Chloride 0.9% 100 ml @ Per Protocol IV .Q0M [facility] Rx#:[id number] Output: Chest Tube Drainage 292 30 Chest Tube Mediastinal 70 30 Chest Tube Right Lateral 52 Chest Left Lateral Chest 170 Drainage 10 Left Wrist 0 Right Calf 10 Urine 470 445 30 Other: Voiding Method Indwelling Catheter Indwelling Catheter ABP, PAP, CO, CI - Last Documented Arterial Blood Pressure 85/46 Pulmonary Artery Pressure 22/6 Cardiac Output 5.7 Cardiac Index 2.8 - Exam CONSTITUTIONAL: Appears comfortable, cooperative, no acute distress RESPIRATORY: Lungs sounds diminished bilaterally. Respirations even, nonlabored. Currently on room air with oxygen saturation 95%. Able to achieve 3058-5975 mL on incentive spirometry. Strong cough. CARDIOVASCULAR: S1, S2 present. Regular rate and rhythm, sinus tach on telemetry. Sternum stable. Palpable peripheral pulses bilaterally. No edema present. No calf pain or tenderness noted. Heart hugger in place with patient demonstrating appropriate use. Antiembolism stockings, SCDs present. GASTROINTESTINAL: Abdomen soft, nontender, nondistended. Active bowel sounds present 4 quadrants. Tolerating minimal diet. Denies flatus, positive belching GENITOURINARY: Cervantes present draining clear, yellow urine. Output overnight 15-70 mL per hour, 870 mL in the last 24 hours INTEGUMENTARY: Skin is warm and dry with evidence of good perfusion. Anterior chest incision well approximated and covered with dry intact dressing. Left radial artery harvest site as well as right lower extremity EVH site well approximated NEUROLOGIC: Cranial nerves II through XII intact MUSKULOSKELETAL: Able to move all extremities, strength equal bilaterally, gait normal PSYCHIATRIC: Alert and oriented to person place and time, appropriate affect, intact judgment and insight INVASIVE LINES AND TUBES: Mediastinal/left/right pleural chest tubes present and connected to wall suction, no air leaks present. Mediastinal tube with 30 mL serosanguineous drainage overnight, 150 mL in the last 24 hours. Left pleura l chest tube with 150 mL serosanguineous drainage in the last 24 hours. Right pleural chest tube with 150 mL serosanguineous drainage in the last 24 hours. Atrial epicardial pacemaker wires present, connected to generator, backup rate 50 bpm. Right internal jugular cordis, right radial arterial line present. Last CVP 5. - Allied health notes Allied health notes reviewed: nursing - Labs CBC & Chem 7: 04/30/25 04:09 04/30/25 04:09 Labs: Abnormal Lab Results - Last 24 Hours (Table) 04/29/25 04/29/25 04/29/25 Range/Units 08:09 09:03 09:57 RBC (4.40-5.60) 10*6/uL Hgb (13.0-17.0) g/dL Hct (39.6-50.0) % Plt Count (140-440) 10*3/uL MPV (9.5-12.2) fL Sodium (137-145) mmol/L Glucose (74-99) mg/dL POC Glucose (mg/dL) 147 H 140 H 135 H (70-110) mg/dL Total Bilirubin (0.2-1.3) mg/dL Alkaline Phosphatase (38-126) U/L Total Protein (6.3-8.2) g/dL Albumin (3.5-5.0) g/dL 04/29/25 04/29/25 04/29/25 Range/Units 11:11 12:08 13:00 RBC (4.40-5.60) 10*6/uL Hgb (13.0-17.0) g/dL Hct (39.6-50.0) % Plt Count (140-440) 10*3/uL MPV (9.5-12.2) fL Sodium (137-145) mmol/L Glucose (74-99) mg/dL POC Glucose (mg/dL) 122 H 112 H 131 H (70-110) mg/dL Total Bilirubin (0.2-1.3) mg/dL Alkaline Phosphatase (38-126) U/L Total Protein (6.3-8.2) g/dL Albumin (3.5-5.0) g/dL 04/29/25 04/29/25 04/29/25 Range/Units 14:16 15:07 15:58 RBC (4.40-5.60) 10*6/uL Hgb (13.0-17.0) g/dL Hct (39.6-50.0) % Plt Count (140-440) 10*3/uL MPV (9.5-12.2) fL Sodium (137-145) mmol/L Glucose (74-99) mg/dL POC Glucose (mg/dL) 128 H 116 H 119 H (70-110) mg/dL Total Bilirubin (0.2-1.3) mg/dL Alkaline Phosphatase (38-126) U/L Total Protein (6.3-8.2) g/dL Albumin (3.5-5.0) g/dL 04/29/25 04/29/25 04/29/25 Range/Units 17:12 18:17 18:48 RBC (4.40-5.60) 10*6/uL Hgb (13.0-17.0) g/dL Hct (39.6-50.0) % Plt Count (140-440) 10*3/uL MPV (9.5-12.2) fL Sodium (137-145) mmol/L Glucose (74-99) mg/dL POC Glucose (mg/dL) 121 H 119 H 117 H (70-110) mg/dL Total Bilirubin (0.2-1.3) mg/dL Alkaline Phosphatase (38-126) U/L Total Protein (6.3-8.2) g/dL Albumin (3.5-5.0) g/dL 04/29/25 04/29/25 04/29/25 Range/Units 20:13 20:57 22:07 RBC (4.40-5.60) 10*6/uL Hgb (13.0-17.0) g/dL Hct (39.6-50.0) % Plt Count (140-440) 10*3/uL MPV (9.5-12.2) fL Sodium (137-145) mmol/L Glucose (74-99) mg/dL POC Glucose (mg/dL) 119 H 124 H 126 H (70-110) mg/dL Total Bilirubin (0.2-1.3) mg/dL Alkaline Phosphatase (38-126) U/L Total Protein (6.3-8.2) g/dL Albumin (3.5-5.0) g/dL 04/29/25 04/30/25 04/30/25 Range/Units 23:01 00:05 01:04 RBC (4.40-5.60) 10*6/uL Hgb (13.0-17.0) g/dL Hct (39.6-50.0) % Plt Count (140-440) 10*3/uL MPV (9.5-12.2) fL Sodium (137-145) mmol/L Glucose (74-99) mg/dL POC Glucose (mg/dL) 134 H 127 H 124 H (70-110) mg/dL Total Bilirubin (0.2-1.3) mg/dL Alkaline Phosphatase (38-126) U/L Total Protein (6.3-8.2) g/dL Albumin (3.5-5.0) g/dL 04/30/25 04/30/25 04/30/25 Range/Units 02:03 03:01 04:08 RBC (4.40-5.60) 10*6/uL Hgb (13.0-17.0) g/dL Hct (39.6-50.0) % Plt Count (140-440) 10*3/uL MPV (9.5-12.2) fL Sodium (137-145) mmol/L Glucose (74-99) mg/dL POC Glucose (mg/dL) 116 H 115 H 112 H (70-110) mg/dL Total Bilirubin (0.2-1.3) mg/dL Alkaline Phosphatase (38-126) U/L Total Protein (6.3-8.2) g/dL Albumin (3.5-5.0) g/dL 04/30/25 04/30/25 04/30/25 Range/Units 04:09 04:09 05:04 RBC 2.47 L (4.40-5.60) 10*6/uL Hgb 7.5 L (13.0-17.0) g/dL Hct 22.5 L (39.6-50.0) % Plt Count 79 L (140-440) 10*3/uL MPV 9.1 L (9.5-12.2) fL Sodium 131 L (137-145) mmol/L Glucose 100 H (74-99) mg/dL POC Glucose (mg/dL) 115 H (70-110) mg/dL Total Bilirubin 2.4 H (0.2-1.3) mg/dL Alkaline Phosphatase 31 L (38-126) U/L Total Protein 4.6 L (6.3-8.2) g/dL Albumin 2.8 L (3.5-5.0) g/dL 04/30/ Range/Units 06:03 RBC (4.40-5.60) 10*6/uL Hgb (13.0-17.0) g/dL Hct (39.6-50.0) % Plt Count (140-440) 10*3/uL MPV (9.5-12.2) fL Sodium (137-145) mmol/L Glucose (74-99) mg/dL POC Glucose (mg/dL) 112 H (70-110) mg/dL Total Bilirubin (0.2-1.3) mg/dL Alkaline Phosphatase (38-126) U/L Total Protein (6.3-8.2) g/dL Albumin (3.5-5.0) g/dL - Imaging and Cardiology Chest x-ray: image reviewed Assessment and Plan Assessment: Triple-vessel coronary artery disease, status post four-vessel CABG Postoperative acute blood loss anemia and thrombocytopenia, expected given hemodilution and cardiopulmonary bypass pump History of coronary artery disease with myocardial infarction and previous PCI to the LAD and RCA in 2022 Preserved left ventricular function Hyperlipidemia Lifelong non-smoker but previous chew tobacco with cessation in March 2023 Strong family history of coronary disease Plan: Continue to maximize medical therapy with aspirin, statin, Plavix, beta-arina. Will increase beta-arina therapy as tolerated Continue low-dose oral calcium channel arina for radial artery spasm prophylaxis with hold parameters, held yesterday Will monitor daily labs and x-rays, electrolyte replacement per protocol Encourage incentive spirometry use 10 times every hour while awake. Bronchodilators per pulmonology Increase activity, ambulate as tolerated. PT/OT/cardiac rehab consulted GI/DVT prophylaxis Pain control per current medication regimen Insulin management per internal medicine, patient is not diabetic, preoperative hemoglobin A1c 5.7% Discontinue cordis Discontinue chest tubes Ground epicardial pacemaker wire Discontinue Cervantes catheter, may bladder scan and straight cath for greater than 300 mL residual Continue to monitor and record strict accurate intake and output Daily weights If patient remains stable may place transfer orders for 3 S. cardiac stepdown unit this afternoon More recommendations to follow as patient progresses
--- NOTE | 2025-04-30 08:22 | XR ---
EXAMINATION TYPE: XR chest 1V portable DATE OF EXAM: 04/30/2025 5:40 AM COMPARISON: Chest radiograph from one day prior. CLINICAL INDICATION: Male, 60 years old with history of Post Operative Cardiac Surgery; [facility] TECHNIQUE: XR chest 1V portable Frontal view of the chest. FINDINGS: FINDINGS: Lungs/Pleura: Blunting of the left costophrenic angle. There is no evidence of right pleural effusio n, focal consolidation, or pneumothorax Pulmonary vascularity: Unremarkable. Heart/mediastinum: Cardiomediastinal silhouette is unremarkable. Left atrial appendage occlusion collette ce is present. Musculoskeletal: No acute osseous pathology. Midline sternotomy wires are noted. Other findings: None Lines/Tubes: There is a [place] catheter sheath in place. Left thoracotomy tube is present without evidence of pneumothorax. IMPRESSION: 1. Postsurgical changes with tubes as above. 2. Small left pleural effusion. [facility], , 04/30/2025 8:20 AM
--- NOTE | 2025-04-30 12:06 | P.PN ---
Subjective Progress Note Date: 04/30/25 Patient seen and examined at bedside. No acute events overnight. Tolerating oral intake. All Systems reviewed and pertinent positives and negatives noted in HPI, all other symptoms are negative Gen: In NAD, non-toxic HEENT: normocephalic, atraumatic, hearing acuity is intant, mucous membranes moist CVS: perfusing all extremities well, no pitting edema, heart hugger in place, chest tubes in place Respiratory: symmetric chest expansion, no accessory muscle use, GI: soft, NTTP, ND, : no suprapubic tenderness, no CVA tenderness MSK/Derm: no rashes, cyanosis Neuro: CN II-XII intact, no motor weakness, Psych: cooperative, euthymic mood, judgment and insight is intact WBC 5.99, hgb 7.5, plt 79, cr 0.84, BS range between 100-115 Assessment/plan: Prediabetic, A1c 5.7 Hyperglycemia - DC insulin gtt, start on low SSI, monitor for hypoglycemia CAD status post CABG, postop day 2 Acute blood loss anemia, expected outcome of surgery Thrombocytopenia Hypertension Hyperlipidemia Former tobacco smoker -ferrous sulfate 325 BID, transfuse for hemoglobin less than 8 - sq heparin for DVT ppx -on ASA 325, atorvastatin 40, plavix 75, metoprolol 12.5 mg BID - pain control per CT surgery. Patient is full code DVT prophylaxis as above Thank you for the consult. Please do not hesitate to reach out to [facility] for any questions. Objective - Vital Signs Vital signs: Vital Signs Temp 98.5 F 04/30/25 08:00 Pulse 94 04/30/25 10:00 Resp 20 04/30/25 10:00 BP 105/58 04/30/25 10:00 Pulse Ox 97 04/30/25 10:00 FiO2 50 04/28/25 19:00 Intake & Output 04/29/25 04/30/25 04/30/25 18:59 06:59 18:59 Intake Total 738.471 721.231 197 Output Total 772 475 735 Balance -33.529 246.231 -538 Weight 91.9 kg 94.4 kg Intake: IV 709.5 708 197 Nitroglycerin-D5w Pmx 50 1.5 mg In Dextrose/Water 1 250ml.bag @ Per Protocol IV ONCE ONE Rx#:[id number] Pressure Bags 108 108 27 Sodium Chloride 0.9% 1, 600 600 170 000 ml @ 20 mls/hr IV . Q24H [facility] Rx#:[id number] Intake, IV Titration 28.971 13.231 Amount Insulin Regular 100 unit 28.971 13.231 In Sodium Chloride 0.9% 100 ml @ Per Protocol IV .Q0M [facility] Rx#:[id number] Output: Chest Tube Drainage 292 30 30 Chest Tube Mediastinal 70 30 0 Chest Tube Right Lateral 52 0 Chest Left Lateral Chest 170 30 Drainage 10 Left Wrist 0 Right Calf 10 Urine 470 445 705 Other: Voiding Method Indwelling Catheter Indwelling Catheter Indwelling Catheter ABP, PAP, CO, CI - Last Documented Arterial Blood Pressure 65/53 Pulmonary Artery Pressure 22/6 Cardiac Output 5.7 Cardiac Index 2.8 - Labs CBC & Chem 7: 04/30/25 04:09 04/30/25 04:09 Labs: Abnormal Lab Results - Last 24 Hours (Table) 04/29/25 04/29/25 04/29/25 Range/Units 12:08 13:00 14:16 RBC (4.40-5.60) 10*6/uL Hgb (13.0-17.0) g/dL Hct (39.6-50.0) % Plt Count (140-440) 10*3/uL MPV (9.5-12.2) fL Sodium (137-145) mmol/L Glucose (74-99) mg/dL POC Glucose (mg/dL) 112 H 131 H 128 H (70-110) mg/dL Total Bilirubin (0.2-1.3) mg/dL Alkaline Phosphatase (38-126) U/L Total Protein (6.3-8.2) g/dL Albumin (3.5-5.0) g/dL 04/29/25 04/29/25 04/29/25 Range/Units 15:07 15:58 17:12 RBC (4.40-5.60) 10*6/uL Hgb (13.0-17.0) g/dL Hct (39.6-50.0) % Plt Count (140-440) 10*3/uL MPV (9.5-12.2) fL Sodium (137-145) mmol/L Glucose (74-99) mg/dL POC Glucose (mg/dL) 116 H 119 H 121 H (70-110) mg/dL Total Bilirubin (0.2-1.3) mg/dL Alkaline Phosphatase (38-126) U/L Total Protein (6.3-8.2) g/dL Albumin (3.5-5.0) g/dL 04/29/25 04/29/25 04/29/25 Range/Units 18:17 18:48 20:13 RBC (4.40-5.60) 10*6/uL Hgb (13.0-17.0) g/dL Hct (39.6-50.0) % Plt Count (140-440) 10*3/uL MPV (9.5-12.2) fL Sodium (137-145) mmol/L Glucose (74-99) mg/dL POC Glucose (mg/dL) 119 H 117 H 119 H (70-110) mg/dL Total Bilirubin (0.2-1.3) mg/dL Alkaline Phosphatase (38-126) U/L Total Protein (6.3-8.2) g/dL Albumin (3.5-5.0) g/dL 04/29/25 04/29/25 04/29/25 Range/Units 20:57 22:07 23:01 RBC (4.40-5.60) 10*6/uL Hgb (13.0-17.0) g/dL Hct (39.6-50.0) % Plt Count (140-440) 10*3/uL MPV (9.5-12.2) fL Sodium (137-145) mmol/L Glucose (74-99) mg/dL POC Glucose (mg/dL) 124 H 126 H 134 H (70-110) mg/dL Total Bilirubin (0.2-1.3) mg/dL Alkaline Phosphatase (38-126) U/L Total Protein (6.3-8.2) g/dL Albumin (3.5-5.0) g/dL 04/30/25 04/30/25 04/30/25 Range/Units 00:05 01:04 02:03 RBC (4.40-5.60) 10*6/uL Hgb (13.0-17.0) g/dL Hct (39.6-50.0) % Plt Count (140-440) 10*3/uL MPV (9.5-12.2) fL Sodium (137-145) mmol/L Glucose (74-99) mg/dL POC Glucose (mg/dL) 127 H 124 H 116 H (70-110) mg/dL Total Bilirubin (0.2-1.3) mg/dL Alkaline Phosphatase (38-126) U/L Total Protein (6.3-8.2) g/dL Albumin (3.5-5.0) g/dL 04/30/25 04/30/25 04/30/25 Range/Units 03:01 04:08 04:09 RBC 2.47 L (4.40-5.60) 10*6/uL Hgb 7.5 L (13.0-17.0) g/dL Hct 22.5 L (39.6-50.0) % Plt Count 79 L (140-440) 10*3/uL MPV 9.1 L (9.5-12.2) fL Sodium (137-145) mmol/L Glucose (74-99) mg/dL POC Glucose (mg/dL) 115 H 112 H (70-110) mg/dL Total Bilirubin (0.2-1.3) mg/dL Alkaline Phosphatase (38-126) U/L Total Protein (6.3-8.2) g/dL Albumin (3.5-5.0) g/dL 04/30/25 04/30/25 04/30/25 Range/Units 04:09 05:04 06:03 RBC (4.40-5.60) 10*6/uL Hgb (13.0-17.0) g/dL Hct (39.6-50.0) % Plt Count (140-440) 10*3/uL MPV (9.5-12.2) fL Sodium 131 L (137-145) mmol/L Glucose 100 H (74-99) mg/dL POC Glucose (mg/dL) 115 H 112 H (70-110) mg/dL Total Bilirubin 2.4 H (0.2-1.3) mg/dL Alkaline Phosphatase 31 L (38-126) U/L Total Protein 4.6 L (6.3-8.2) g/dL Albumin 2.8 L (3.5-5.0) g/dL
[2025-04-30 12:28] LABS: Glucose,Whole Blood 96 mg/dL (70-110)
[2025-04-30] MEDS: INSULIN LISPRO (HumaLOG) 100 UNIT/ML 10 mL VL SQ SCH (12:33)
[2025-04-30] MEDS: ACETAMINOPHEN TAB 325 MG TAB PO PRN (12:48)
[2025-04-30] MEDS: METOPROLOL TARTRATE 12.5 MG TAB PO STA (14:32)
[2025-04-30 16:22] LABS: Glucose,Whole Blood 99 mg/dL (70-110)
[2025-04-30 20:18] LABS: Glucose,Whole Blood 97 mg/dL (70-110)
[2025-04-30] MEDS: METOPROLOL TARTRATE 25 MG TAB PO SCH (20:58)
--- NOTE | 2025-04-30 23:39 | PN ---
PROGRESS NOTE SUBJECTIVE: This is a 60-year-old gentleman, who is status post CABG postop day #2. Doing well and is free of symptoms. OBJECTIVE: VITAL SIGNS: Remains in sinus rhythm with a heart rate of 80 beats per minute, blood pressure is 105/49, respiratory rate is 18. CHEST: Reveals good air entry bilaterally. HEART: Reveals first and second heart sounds. No gallop. ABDOMEN: Soft, nontender. EXTREMITIES: Did not reveal any edema. Peripheral pulses are felt. MEDICATIONS: The patient is currently on; 1. Norvasc 2.5 mg daily. 2. Aspirin. 3. Lipitor. 4. Plavix. 5. Insulin. 6. Lopressor. ASSESSMENT AND PLAN: Coronary artery disease, status post CABG postop day #2, increase activities. Hopefully, the chest tubes will come out today. The patient is anemic secondary to blood loss around surgery. MMODL / IJN: [id number] /
--- NOTE | 2025-05-01 03:21 | PN ---
PROGRESS NOTE ADDENDUM: SUBJECTIVE: This is a 60-year-old male, postop day #2, status post 4-vessel bypass grafting done by Dr. Armas. He is seen today in the intensive care unit, room 263. He is on room air. He is getting saline at 40 mL an hour. As mentioned, this is postop day #2. He has no complaints. He is doing very well. He is doing well on his incentive spirometry. OBJECTIVE: VITAL SIGNS: Unavailable. HEENT: Examination is grossly unremarkable. NECK: Supple. Full range of motion. No adenopathy. Neck veins are flat. CARDIOVASCULAR: Reveals regular rhythm rate. Heart sounds are distant. LUNGS: Reveals some scattered rhonchi. ABDOMEN: Soft. EXTREMITIES: Intact. No cyanosis, clubbing, or edema. SKIN: Without rash. NEUROLOGIC: Brief, but nonfocal. ASSESSMENT: 1. Postoperative day #2. 2. Status post 4-vessel bypass grafting. 3. Routine postoperative ventilator management. 4. History of coronary disease. PLAN: The patient is doing well. The patient is currently on room air. He is getting saline at 40 mL an hour. Today is postop day #2. He continues to use the incentive spirometer every hour while awake. We will continue to follow and make recommendations. All labs, x-rays, and medications are reviewed. MMODL / IJN: [id number] /
[2025-05-01 04:08] LABS: Basophils # (A) 0.01 10*3/uL (0.00-0.10); Basophils % (A) 0.2 %; Eosinophils # (A) 0.24 10*3/uL (0.04-0.35); Eosinophils % (A) 4.8 %; HCT 23.1 % (39.6-50.0); HGB 7.7 g/dL (13.0-17.0); Lymphocytes # (A) 0.76 10*3/uL (0.90-5.00); Lymphocytes % (A) 15.1 %; MCH 30.8 pg (27.0-32.0); MCHC 33.3 g/dL (32.0-37.0); MCV 92.4 fL (80.0-97.0); Mean Platelet Volume 9.3 fL (9.5-12.2); Monocytes # (A) 0.24 10*3/uL (0.20-1.00); Monocytes % (A) 4.8 %; Neutrophils # (A) 3.75 10*3/uL (1.80-7.70); Neutrophils % (A) 74.5 %; RDW 13.2 % (11.5-14.5); WBC 5.03 10*3/uL (4.50-10.00)
[2025-05-01 04:16] LABS: Platelet Count 93 10*3/uL (140-440)
[2025-05-01 04:24] LABS: ALT 12 U/L (4-49); AST 32 U/L (17-59); African American GFR (CKD) >90 (>60 ml/min/1.73 sqM); Albumin 2.7 g/dL (3.5-5.0); Alkaline Phosphatase 36 U/L (38-126); Anion Gap 6 mmol/L; Blood Urea Nitrogen 14 mg/dL (9-20); Calcium 8.4 mg/dL (8.4-10.2); Carbon Dioxide 24 mmol/L (22-30); Chloride 107 mmol/L (98-107); Glucose 95 mg/dL (74-99); Non-African American GFR(CKD) >90 (>60 ml/min/1.73 sqM); Potassium 4.3 mmol/L (3.5-5.1); Sodium 137 mmol/L (137-145); Total Protein 4.6 g/dL (6.3-8.2)
--- NOTE | 2025-05-01 04:39 | PN ---
PROGRESS NOTE DATE OF SERVICE: 04/30/2025 The patient was seen today, April 30, 2025, in followup in the intensive care unit. He is currently sitting up in a chair at the bedside. Awake and alert, in no acute distress. He is maintaining good O2 saturations in the 90s on room air oxygen. His lungs are clear. He has normal saline at 40 mL/h. He is postoperative day #2 of coronary artery bypass grafting x4. His labs and medications were reviewed before the Internet went down here at the hospital. PHYSICAL EXAM: GENERAL: This is a very pleasant 60-year-old male patient, sitting up in a chair at the bedside, on room air oxygen, in no acute distress. HEENT. Head is normocephalic. Sclerae anicteric. NECK: Supple. Right IJ [place]-Su catheter remains in place. HEART: Regular S1, S2. Sternum is stable. Heart hugger in place. LUNGS: Clear anterior and posteriorly. Chest tubes remain in place. ABDOMEN: Soft, nontender. Bowel sounds are present. SKIN: No rash. NEUROLOGIC: No focal deficits. Tone is normal in all 4 extremities. EXTREMITIES: Matt wraps to the lower extremities, trace peripheral edema. Peripheral pulses are intact. ASSESSMENT: Coronary artery disease status post coronary artery bypass grafting. Postoperative day #2. PLAN: The patient was seen and evaluated. Chest x-ray, labs, and medications reviewed. Currently stable on room air oxygen. Encouraged the increase use of the incentive spirometer. Increase his activity as tolerated. We will continue to follow. TIME STATEMENT: HPI, plan and assessment are dictated by Rozina Hayes D.N.P. Time: 10 minutes. MMODL / DELVISN: [id number] /
[2025-05-01 06:36] LABS: Glucose,Whole Blood 98 mg/dL (70-110)
--- NOTE | 2025-05-01 07:39 | P.PN ---
Subjective Progress Note Date: 05/01/25 Principal diagnosis: Triple-vessel coronary artery disease. History of coronary artery disease with myocardial infarction and previous PCI to the LAD and RCA in 2022, preserved le ft ventricular function, hyperlipidemia, lifelong non-smoker but previous chew tobacco with cessation in March 2023, strong family history of coronary disease POD #3 multiple arterial quadruple coronary artery bypass grafting using the in situ left internal mammary artery sequentially to the diagonal artery, then to the left anterior descending artery, left radial artery from the aorta to the first obtuse marginal artery, reverse saphenous vein graft from the aorta to the posterior lateral branch of the right coronary artery, exclusion of the left atrial appendage using a 35mm AtriClip, endoscopic harvesting of the left radial artery, endoscopic harvesting of the right greater saphenous vein, intraoperative graft flow measurements using the [employer] system, intraoperative transesophageal echocardiogram and epiaortic scanning Postoperative acute blood loss anemia and thrombocytopenia, expected given hemodilution and cardiopulmonary bypass pump The patient was seen and examined this morning sitting up in recliner in the intensive care unit in no acute distress. Currently in sinus rhythm to sinus tach, hemodynamically stable. Remains on room air with oxygen saturation in the low to mid 90s, able to achieve 1250 mL on incentive spirometry. States pain is controlled on current medication regimen, denies shortness of breath. Chest x- ray, labs reviewed. Right internal jugular cordis remains. Patient has continued to ambulate in the hallway with standby assistance. No other new concerns. Objective - Vital Signs Vital signs: Vital Signs Temp 98.2 F 05/01/25 04:00 Pulse 109 H 05/01/25 07:00 Resp 21 05/01/25 07:00 BP 101/66 05/01/25 07:00 Pulse Ox 95 05/01/25 07:00 FiO2 50 04/28/25 19:00 Intake & Output 04/30/25 05/01/25 05/01/25 18:59 06:59 18:59 Intake Total 358 513 23 Output Total 2165 1200 Balance -1807 -647 23 Weight 93.2 kg Intake: IV 358 273 23 Pressure Bags 48 33 3 Sodium Chloride 0.9% 1, 310 240 20 000 ml @ 20 mls/hr IV . Q24H [facility] Rx#:[id number] Oral 240 Output: Chest Tube Drainage 160 Chest Tube Mediastinal 30 Chest Tube Right Lateral 20 Chest Left Lateral Chest 110 Urine 2004 1200 Other: Voiding Method Indwelling Catheter Toilet Urinal ABP, PAP, CO, CI - Last Documented Arterial Blood Pressure 65/53 Pulmonary Artery Pressure 22/6 Cardiac Output 5.7 Cardiac Index 2.8 - Exam CONSTITUTIONAL: Appears comfortable, cooperative, no acute distress RESPIRATORY: Lungs sounds diminished bilaterally. Respirations even, nonlabored. Currently on room air with oxygen saturation 90-95%. Able to achieve 1250 mL on incentive spirometry. Strong cough. CARDIOVASCULAR: S1, S2 present. Regular rate and rhythm, sinus rhythm to tach on telemetry. Sternum stable. Palpable peripheral pulses bilaterally. No edema present. No calf pain or tenderness noted. Heart hugger in place with patient demonstrating appropriate use. Antiembolism stockings, SCDs present. GASTROINTESTINAL: Abdomen soft, nontender, nondistended. Active bowel sounds present 4 quadrants. Tolerating minimal diet. Positive flatus GENITOURINARY: Continues to void clear, yellow urine. Output overnight 3205 mL in the last 24 hours INTEGUMENTARY: Skin is warm and dry with evidence of good perfusion. Anterior chest incision well approximated and covered with dry intact dressing. Left radial artery harvest site as well as right lower extremity EVH site well approximated NEUROLOGIC: Cranial nerves II through XII intact MUSKULOSKELETAL: Able to move all extremities, strength equal bilaterally, gait normal PSYCHIATRIC: Alert and oriented to person place and time, appropriate affect, intact judgment and insight INVASIVE LINES AND TUBES: Right internal jugular cordis present - Allied health notes Allied health notes reviewed: nursing - Labs CBC & Chem 7: 05/01/25 03:47 05/01/25 03:47 Labs: Abnormal Lab Results - Last 24 Hours (Table) 05/01/25 05/01/25 Range/Units 03:47 03:47 RBC 2.50 L (4.40-5.60) 10*6/uL Hgb 7.7 L (13.0-17.0) g/dL Hct 23.1 L (39.6-50.0) % Plt Count 93 L (140-440) 10*3/uL MPV 9.3 L (9.5-12.2) fL Lymphocytes # 0.76 L (0.90-5.00) 10*3/uL Total Bilirubin 2.0 H (0.2-1.3) mg/dL Alkaline Phosphatase 36 L (38-126) U/L Total Protein 4.6 L (6.3-8.2) g/dL Albumin 2.7 L (3.5-5.0) g/dL - Imaging and Cardiology Chest x-ray: image reviewed Assessment and Plan Assessment: Triple-vessel coronary artery disease, status post four-vessel CABG Postoperative acute blood loss anemia and thrombocytopenia, expected given hemodilution and cardiopulmonary bypass pump History of coronary artery disease with myocardial infarction and previous PCI to the LAD and RCA in 2022 Preserved left ventricular function Hyperlipidemia Lifelong non-smoker but previous chew tobacco with cessation in March 2023 Strong family history of coronary disease Plan: Continue to maximize medical therapy with aspirin, statin, Plavix, beta-arina. Will increase beta-arina therapy as tolerated Continue low-dose oral calcium channel arina for radial artery spasm prophylaxis with hold parameters Will monitor daily labs and x-rays, electrolyte replacement per protocol. No Lasix today Encourage incentive spirometry use 10 times every hour while awake. Bronchodilators per pulmonology Increase activity, ambulate as tolerated. PT/OT/cardiac rehab consulted GI/DVT prophylaxis Pain control per current medication regimen Insulin management per internal medicine, patient is not diabetic, preoperative hemoglobin A1c 5.7% Discontinue cordis May bladder scan and straight cath for greater than 300 mL residual Continue to monitor and record strict accurate intake and output Daily weights Shower daily starting today Will place transfer orders for 3 S. cardiac stepdown unit, may transfer the bed available Discharge planning in progress, anticipate discharge to home with home care in the next 24 to 48 hours More recommendations to follow as patient progresses
--- NOTE | 2025-05-01 08:49 | XR ---
EXAMINATION TYPE: XR chest 2V DATE OF EXAM: 05/01/2025 6:07 AM COMPARISON: Chest radiograph from one day prior. CLINICAL INDICATION: Male, 60 years old with history of post cardiac surgery; [facility] TECHNIQUE: XR chest 2V Frontal view of the chest. FINDINGS: FINDINGS: Lungs/Pleura: Blunting of the left costophrenic angle. There is no evidence of right pleural effusio n, focal consolidation, or pneumothorax Pulmonary vascularity: Unremarkable. Heart/mediastinum: Cardiomediastinal silhouette is unremarkable. Left atrial appendage occlusion collette ce is present. Musculoskeletal: No acute osseous pathology. Midline sternotomy wires are noted. Other findings: None Lines/Tubes: There is a [place]-Su catheter sheath in place. Left thoracotomy tube is present without evidence of pneumothorax. IMPRESSION: 1. Postsurgical changes with tubes as above. 2. Small left pleural effusion. [facility], , 05/01/2025 8:47 AM
[2025-05-01] MEDS: AMIODARONE 200 MG TAB PO SCH (10:04)
[2025-05-01 11:30] LABS: Glucose,Whole Blood 93 mg/dL (70-110)
--- NOTE | 2025-05-01 12:07 | P.PN ---
Subjective Progress Note Date: 05/01/25 Patient is a 60-year-old male with past medical history significant for hypertension, hyperlipidemia, coronary artery disease with previous [place] and cardiac stents to the RCA and LAD. Does follow in the cardiology office with Dr. Garcia. Recently underwent outpatient stress test January, suggestive of ischemia. Did undergo heart catheterization April 09, revealing 50% left main stenosis, mid LAD stenosis at 90%, first diagonal branch of the LAD with 50% stenosis, and proximal RCA stenosis 85%. Patient was referred to cardiothoracic surgery for evaluation, and brought in yesterday for an elective CABG. Preop chest CT from his previous admission showing extensive three-vessel coronary artery calcifications. Some focal tree-in-bud opacities in the periphery right base. A couple fissural pulmonary nodules on the right measuring 1 cm. Favored to be benign. Preoperative pulmonary function test with the FEV1/FVC ratio of 78%. FEV1 was 3.42 L or 98% of predicted. Yesterday, Dr. Armas did perform a quadruple bypass including a CARBALLO to the diagonal and then to the LAD, left radial artery graft to the OM1, reverse SVG from the aorta to the posterior lateral branch of the RCA. Also, exclusion of left atrial appendage. No perioperative complications were reported. Postoperatively, the patient was sent to the intensive care unit, intubated to the mechanical ventilator. Chest x-ray showing postoperative changes. No significant pleural effusions, pneumothoraces, or focal consolidations. Endotracheal tube 6.1 cm of the joslyn. Nasogastric tube projects below the diaphragm. Pulmonary artery catheter in appropriate position. Thoracotomy tubes noted. Patient was ultimately switched to pressure support and follow-up ABG after 30 minutes showing a PaO2 of 194, pCO2 of 44, and pH of 7.34. Patient did have satisfactory weaning parameters including an RSBI of 49, negative -27, positive cuff leak. Dr. Camarena previously had given orders to extubate. Patient was successfully extubated without complication at 1950 to 2 L/min nasal cannula. Postoperative labs including a WBC count of 6.6, hemoglobin 8.8 g/dL, platelets 88,000. BMP with sodium 137, potassium 4.7, chloride 110, serum bicarb 21, BUN 12, creatinine 0.74, glucose 131. iCal 4.6. Magnesium 2.4. LFTs unremarkable. Patient currently being evaluated in the intensive care unit following interval into extubation. He is resting comfortably on 2 L/min nasal cannula. His incentive spirometer is at bedside. Achieving around 1000 mL. Denies any difficulty in breathing. States he has some left posterior lateral back pain. Better controlled following the addition of Toradol. He does have 2 mediastinal chest tubes with a total of 370 mL of serosanguineous output so far. Left pleural chest tube with 500 cc of sanguinous output and a right pleural chest tube with 150 cc of serosanguineous output. No notable airleak. Chest tubes are hooked to atrium and suction at -20 cm H2O. he also has a right lower extremity VENUS drain which is compressed with minimal output and a left forearm VENUS drain also compressed with minimal output. Blood pressure is slightly hypertensive. Most recent CO/CI 5.8 and 2.8 respectively. Not requiring any inotropes. Normal sinus infusing at 30 mL/h. Nitroglycerin infusing at 5 mcg/min. Insulin per protocol. He does have a epicardial pacemaker set to AAI with a backup rate of 70 bpm. Currently has his own intrinsic rhythm, normal sinus on bedside monitor. Urine output is adequate in order of 30 cc/h. The patient is seen today May 01, 2025 in follow-up in the intensive care unit. He is currently sitting up in a chair at the bedside. Awake and alert in no acute distress. This is postoperative day #3 of quadruple coronary artery bypass grafting. He is maintaining good O2 saturations in the 90s on room air oxygen. No IV fluids. No evidence of focal consolidation or pneumothorax. There is a small left pleural effusion. He continues to work well with the incentive spirometer pulling nearly 1250 mL. He had been up ambulating with assistance. White count 5.0. Hemoglobin 7.7. Platelets 93,000. Sodium 137. Potassium 4.3. Bicarb 24. BUN 14. Creatinine 0.9. Glucose 95. He remains on DuoNeb inhalations. Heparin for DVT prophylaxis. Objective - Vital Signs Vital signs: Vital Signs Temp 98.1 F 05/01/25 07:30 Pulse 96 05/01/25 10:00 Resp 17 05/01/25 10:00 BP 109/62 05/01/25 10:00 Pulse Ox 96 05/01/25 10:00 FiO2 50 04/28/25 19:00 Intake & Output 04/30/25 05/01/25 05/01/25 18:59 06:59 18:59 Intake Total 358 513 286 Output Total 2165 1200 290 Balance -1807 -687 -4 Weight 93.2 kg Intake: IV 358 273 46 Pressure Bags 48 33 6 Sodium Chloride 0.9% 1, 310 240 40 000 ml @ 20 mls/hr IV . Q24H [facility] Rx#:[id number] Oral 240 240 Output: Chest Tube Drainage 160 Chest Tube Mediastinal 30 Chest Tube Right Lateral 20 Chest Left Lateral Chest 110 Urine 2004 1200 290 Other: Voiding Method Indwelling Catheter Toilet Toilet Urinal Urinal ABP, PAP, CO, CI - Last Documented Arterial Blood Pressure 65/53 Pulmonary Artery Pressure 22/6 Cardiac Output 5.7 Cardiac Index 2.8 - Exam GENERAL EXAM: Alert, very pleasant 60-year-old male patient, sitting up in a chair, on room air oxygen, comfortable in no apparent distress. HEAD: Normocephalic. EYES: Normal reaction of pupils, equal size. NOSE: Clear with pink turbinates. THROAT: No erythema or exudates. NECK: No masses, no JVD. CHEST: Sternum stable. Dressing dry and intact. Heart hugger in place. LUNGS: Equal air entry with no crackles, wheeze, rhonchi or dullness. CVS: S1 and S2 normal with no audible murmur, regular rhythm. ABDOMEN: No hepatosplenomegaly, normal bowel sounds, no guarding or rigidity. SPINE: No scoliosis or deformity SKIN: No rashes CENTRAL NERVOUS SYSTEM: No focal deficits, tone is normal in all 4 extremities. EXTREMITIES: There is no peripheral edema. No clubbing, no cyanosis. Peripheral pulses are intact. - Labs CBC & Chem 7: 05/01/25 03:47 05/01/25 03:47 Labs: Abnormal Lab Results - Last 24 Hours (Table) 05/01/25 05/01/25 Range/Units 03:47 03:47 RBC 2.50 L (4.40-5.60) 10*6/uL Hgb 7.7 L (13.0-17.0) g/dL Hct 23.1 L (39.6-50.0) % Plt Count 93 L (140-440) 10*3/uL MPV 9.3 L (9.5-12.2) fL Lymphocytes # 0.76 L (0.90-5.00) 10*3/uL Total Bilirubin 2.0 H (0.2-1.3) mg/dL Alkaline Phosphatase 36 L (38-126) U/L Total Protein 4.6 L (6.3-8.2) g/dL Albumin 2.7 L (3.5-5.0) g/dL Assessment and Plan Assessment: Status postoperative day #3 following quadruple coronary artery bypass grafting, including CARBALLO to the diagonal and then to the LAD, left radial artery graft to the OM1, reverse SVG from the aorta to the posterior lateral branch of the RCA. Also, exclusion of left atrial appendage. No perioperative complications were reported. Routine mechanical ventilator management, with interval extubation, currently on room air oxygen Acute blood loss anemia, expected outcome of surgery, has not received any blood products Thrombocytopenia Multivessel coronary artery disease, as reported in recent heart catheterization History of WA with previous stents to the LAD and RCA History of hypertension History of hyperlipidemia Former tobacco smoker Plan: The patient was seen and evaluated Chest x-ray, labs and medications reviewed Currently stable on room air oxygen Working well with the incentive spirometer Continued on bronchodilators Heparin for DVT prophylaxis Increase his activity as tolerated Probable transfer to 3 S. We will continue to follow I have personally seen and examined the patient, performed the documentation and the assessment and plan as written. Number of minutes spent on the visit: 10 Dictation was produced using [employer] dictation software. Please excuse any gra mmatical, word or spelling errors.
[2025-05-01] MEDS: HEPARIN SODIUM,PORCINE (1 ML) 5,000 UNIT in SODIUM CHLORIDE 0.9% 500 ML 500 ML IV ONE (14:39)
[2025-05-01] MEDS: INSULIN REGULAR 100 UNIT in SODIUM CHLORIDE 0.9% 100 ML IV ONE (14:39)
[2025-05-01] MEDS: HEPARIN SODIUM 1,000 UN/ML (10ML VL) IV ONE (14:39)
[2025-05-01] MEDS: NITROGLYCERIN-D5W PMX 50 MG in DEXTROSE/WATER 1 250ML.BAG IV ONE (14:40)
[2025-05-01] MEDS: NITROGLYCERIN-D5W PMX 25 MG/250 ML BTL IV ONE (14:40)
[2025-05-01] MEDS: NITROGLYCERIN SL TABS 0.4 MG TAB SUBLINGUAL ONE (14:40)
[2025-05-01] MEDS: MAGNESIUM SULFATE 16.24 MEQ in EMPTY SYRINGE 1 SYR IV ONE (14:40)
[2025-05-01] MEDS: MANNITOL 25% 12.5 GM/50 ML VIAL IV ONE (14:40)
--- NOTE | 2025-05-01 14:56 | P.PN ---
Subjective Progress Note Date: 05/01/25 Patient seen and examined at bedside. No acute events overnight. Tolerating oral intake. All Systems reviewed and pertinent positives and negatives noted in HPI, all other symptoms are negative Gen: In NAD, non-toxic HEENT: normocephalic, atraumatic, hearing acuity is intant, mucous membranes moist CVS: perfusing all extremities well, no pitting edema, heart hugger in place Respiratory: symmetric chest expansion, no accessory muscle use, GI: soft, NTTP, ND, : no suprapubic tenderness, no CVA tenderness MSK/Derm: no rashes, cyanosis Neuro: CN II-XII intact, no motor weakness, Psych: cooperative, euthymic mood, judgment and insight is intact WBC 5.03, hemoglobin 7.7, platelet 93, creatinine 0.9, blood sugars range between 93-97 Chest x-ray independently interpreted, shows bilateral interstitial opacities improved from yesterday Assessment/plan: Prediabetic, A1c 5.7 Hyperglycemia - DC insulin gtt, start on low SSI, monitor for hypoglycemia CAD status post CABG, postop day 2 Acute blood loss anemia, expected outcome of surgery Thrombocytopenia Hypertension Hyperlipidemia Former tobacco smoker -ferrous sulfate 325 BID, transfuse for hemoglobin less than 8 - sq heparin for DVT ppx -on ASA 325, atorvastatin 40, plavix 75, metoprolol 25 mg BID, amiodarone 400 twice daily, amlodipine 2.5 daily - pain control per CT surgery. - Likely discharge tomorrow Patient is full code DVT prophylaxis as above Thank you for the consult. Please do not hesitate to reach out to [facility] for any questions. Objective - Vital Signs Vital signs: Vital Signs Temp 98.1 F 05/01/25 07:30 Pulse 99 05/01/25 12:34 Resp 16 05/01/25 14:00 BP 100/60 05/01/25 12:00 Pulse Ox 96 05/01/25 12:00 FiO2 50 04/28/25 19:00 Intake & Output 04/30/25 05/01/25 05/01/25 18:59 06:59 18:59 Intake Total 358 513 286 Output Total 2162 1200 640 Balance -1807 -687 -354 Weight 93.2 kg Intake: IV 358 273 46 Pressure Bags 48 33 6 Sodium Chloride 0.9% 1, 310 240 40 000 ml @ 20 mls/hr IV . Q24H [facility] Rx#:[id number] Oral 240 240 Output: Chest Tube Drainage 160 Chest Tube Mediastinal 30 Chest Tube Right Lateral 20 Chest Left Lateral Chest 110 Urine 2005 1200 640 Other: Voiding Method Indwelling Catheter Toilet Toilet Urinal Urinal ABP, PAP, CO, CI - Last Documented Arterial Blood Pressure 65/53 Pulmonary Artery Pressure 22/6 Cardiac Output 5.7 Cardiac Index 2.8 - Labs CBC & Chem 7: 05/01/25 03:47 05/01/25 03:47 Labs: Abnormal Lab Results - Last 24 Hours (Table) 05/01/25 05/01/25 Range/Units 03:47 03:47 RBC 2.50 L (4.40-5.60) 10*6/uL Hgb 7.7 L (13.0-17.0) g/dL Hct 23.1 L (39.6-50.0) % Plt Count 93 L (140-440) 10*3/uL MPV 9.3 L (9.5-12.2) fL Lymphocytes # 0.76 L (0.90-5.00) 10*3/uL Total Bilirubin 2.0 H (0.2-1.3) mg/dL Alkaline Phosphatase 36 L (38-126) U/L Total Protein 4.6 L (6.3-8.2) g/dL Albumin 2.7 L (3.5-5.0) g/dL
[2025-05-01] MEDS: NOREPINEPHRINE 8 MG in SODIUM CHLORIDE 0.9% 250 ML IV ONE (16:03)
[2025-05-01] MEDS: PAPAVERINE 360 MG in SODIUM CHLORIDE 0.9% 90 ML IV ONE (16:03)
[2025-05-01] MEDS: PHENYLEPHRINE 10 MG/ML VIAL IV ONE (16:03)
[2025-05-01] MEDS: propofoL 1,000 MG/100 ML VIAL IV ONE (16:04)
[2025-05-01] MEDS: PROTAMINE SULFATE 10 MG/ML 25 ML VIAL IV ONE (16:04)
[2025-05-01] MEDS: PROTAMINE SULFATE 250 MG in EMPTY BAG 1 BAG IV ONE (16:04)
[2025-05-01] MEDS: SODIUM CHLORIDE 0.9% 1,000 ML IV ONE (16:04)
[2025-05-01] MEDS: PHENYLEPHRINE 40 MG in SODIUM CHLORIDE 0.9% 250 ML IV ONE (16:04)
[2025-05-01] MEDS: TRANEXAMIC ACID 2,000 MG in SODIUM CHLORIDE 0.9% 80 ML IV ONE ×2 (16:04→16:05)
[2025-05-01] MEDS: SODIUM BICARB 8.4% 50 ML SYR (1 MEQ/ML) IV ONE (16:04)
[2025-05-01] MEDS: MUPIROCIN 2% OINT 22 GM TUBE NASAL ONE (16:05)
[2025-05-01 16:48] LABS: Glucose,Whole Blood 92 mg/dL (70-110)
[2025-05-01 19:51] LABS: Glucose,Whole Blood 112 mg/dL (70-110)
--- NOTE | 2025-05-01 20:06 | PN ---
PROGRESS NOTE FOLLOWUP NOTE SUBJECTIVE: Harjit is a 60-year-old gentleman who is with coronary artery disease, status post bypass surgery, postop day #3. He denies any episodes of chest pain. He does not have any shortness of breath and remains in sinus rhythm. He is currently on amiodarone per CT Surgery, Norvasc 2.5 mg daily, aspirin, Lipitor, Plavix 75 mg daily, Lopressor 25 b.i.d. PHYSICAL EXAMINATION: GENERAL: On exam, comfortable at rest. VITAL SIGNS: Stable. CHEST: Reveals good air entry bilaterally. HEART: Reveals first and second heart sounds. No gallop. No murmur. ABDOMEN: Soft, nontender. EXTREMITIES: Examination of the extremities did not reveal any edema. Peripheral pulses are felt. LABORATORY DATA: Lab show a hemoglobin of 7.7, potassium is 4., creatinine is 0.9. ASSESSMENT: 1. Coronary artery disease status post CABG. 2. Anemia secondary to perioperative blood loss. PLAN: Continue current medications. Increase activity. Incentive spirometry. Hopefully home tomorrow. MMODL / IJN: [id number] /
[2025-05-02 04:38] LABS: HCT 22.9 % (39.6-50.0); HGB 7.4 g/dL (13.0-17.0); MCH 30.1 pg (27.0-32.0); MCHC 32.3 g/dL (32.0-37.0); MCV 93.1 fL (80.0-97.0); Mean Platelet Volume 9.4 fL (9.5-12.2); Platelet Count 129 10*3/uL (140-440); RBC 2.46 10*6/uL (4.40-5.60); RDW 13.4 % (11.5-14.5); WBC 4.98 10*3/uL (4.50-10.00)
[2025-05-02 05:02] LABS: African American GFR (CKD) >90 (>60 ml/min/1.73 sqM); Anion Gap 7 mmol/L; Blood Urea Nitrogen 17 mg/dL (9-20); Calcium 8.5 mg/dL (8.4-10.2); Carbon Dioxide 23 mmol/L (22-30); Chloride 107 mmol/L (98-107); Glucose 96 mg/dL (74-99); Non-African American GFR(CKD) 86 (>60 ml/min/1.73 sqM); Potassium 4.3 mmol/L (3.5-5.1); Sodium 137 mmol/L (137-145)
[2025-05-02 06:02] LABS: Glucose,Whole Blood 102 mg/dL (70-110)
--- NOTE | 2025-05-02 07:35 | XR ---
EXAMINATION TYPE: XR chest 2V DATE OF EXAM: 05/02/2025 6:25 AM COMPARISON: Chest radiographs from 05/01/2025. CLINICAL INDICATION: Male, 60 years old with history of post cardiac surgery; [facility] TECHNIQUE: XR chest 2V Frontal and lateral views of the chest. FINDINGS: Lungs/Pleura: Blunting of the left costophrenic angle. There is no evidence of right pleural effusio n, focal consolidation, or pneumothorax Pulmonary vascularity: Unremarkable. Heart/mediastinum: Cardiomediastinal silhouette is unremarkable. Left atrial appendage occlusion collette ce is present. Musculoskeletal: No acute osseous pathology. Midline sternotomy wires are noted. Other findings: None Lines/Tubes: There is a [place]-Su catheter sheath has been removed. Left thoracotomy tube has been removed without evidence of pneumothorax. IMPRESSION: 1. Stable exam with Postsurgical changes 2. Removal of thoracotomy tube no evidence for pneumothorax. 3. Small left pleural effusion. [facility], , 05/02/2025 7:32 AM
[2025-05-02 08:10] VITALS: BP 110/70; RESP 18; TEMP 97.8
[2025-05-02] MEDS: METOPROLOL TARTRATE 50 MG TAB PO SCH (08:12)
--- NOTE | 2025-05-02 08:34 | P.PN ---
Subjective Progress Note Date: 05/02/25 Patient seen and examined at bedside. No acute events overnight. Tolerating oral intake. All Systems reviewed and pertinent positives and negatives noted in HPI, all other symptoms are negative Gen: In NAD, non-toxic HEENT: normocephalic, atraumatic, hearing acuity is intant, mucous membranes moist CVS: perfusing all extremities well, no pitting edema, heart hugger in place Respiratory: symmetric chest expansion, no accessory muscle use, GI: soft, NTTP, ND, : no suprapubic tenderness, no CVA tenderness MSK/Derm: no rashes, cyanosis Neuro: CN II-XII intact, no motor weakness, Psych: cooperative, euthymic mood, judgment and insight is intact WBC 4.98, hemoglobin 7.4, platelet 129, creatinine 0.96, potassium 4.3, blood sugars range between 96-1 12 Chest x-ray independently interpreted, shows bilateral interstitial opacities improved from yesterday Assessment/plan: Prediabetic, A1c 5.7 Hyperglycemia - Continue on low SSI, monitor for hypoglycemia CAD status post CABG Acute blood loss anemia, expected outcome of surgery Thrombocytopenia, improving Hypertension Hyperlipidemia Former tobacco smoker -ferrous sulfate 325 BID - sq heparin for DVT ppx -on ASA 325, atorvastatin 40, plavix 75, metoprolol 50 mg BID, amiodarone 400 twice daily, amlodipine 2.5 daily - pain control per CT surgery. - Likely discharge today Patient is full code DVT prophylaxis as above Thank you for the consult. Please do not hesitate to reach out to [facility] for any questions. Objective - Vital Signs Vital signs: Vital Signs Temp 97.8 F 05/02/25 08:00 Pulse 99 05/02/25 08:00 Resp 18 05/02/25 08:00 BP 110/70 05/02/25 08:00 Pulse Ox 98 05/02/25 08:00 FiO2 50 04/28/25 19:00 Intake & Output 05/01/25 05/02/25 05/02/25 18:59 06:59 18:59 Intake Total 286 Output Total 1090 700 Balance -804 -700 Weight 92.5 kg Intake: IV 46 Pressure Bags 6 Sodium Chloride 0.9% 1, 40 000 ml @ 20 mls/hr IV . Q24H [facility] Rx#:[id number] Oral 240 Output: Urine 1090 700 Other: Voiding Method Toilet Toilet Urinal Urinal # Voids 2 ABP, PAP, CO, CI - Last Documented Arterial Blood Pressure 65/53 Pulmonary Artery Pressure 22/6 Cardiac Output 5.7 Cardiac Index 2.8 - Labs CBC & Chem 7: 05/02/25 04:10 05/02/25 04:10 Labs: Abnormal Lab Results - Last 24 Hours (Table) 05/01/25 05/02/25 Range/Units 19:50 04:10 RBC 2.46 L (4.40-5.60) 10*6/uL Hgb 7.4 L (13.0-17.0) g/dL Hct 22.9 L (39.6-50.0) % Plt Count 129 L (140-440) 10*3/uL MPV 9.4 L (9.5-12.2) fL POC Glucose (mg/dL) 112 H (70-110) mg/dL
[2025-05-02] MEDS: FUROSEMIDE 10 MG/ML 2 ML VIAL IV STA (11:37)
[2025-05-02 11:45] LABS: Glucose,Whole Blood 89 mg/dL (70-110)
[2025-05-02 11:56] VITALS: PULSE 82
--- NOTE | 2025-05-02 13:16 | P.PN ---
Subjective Progress Note Date: 05/02/25 Principal diagnosis: CABG. Patient is a 60-year-old male with past medical history significant for hypertension, hyperlipidemia, coronary artery disease with previous NE and cardi ac stents to the RCA and LAD. Does follow in the cardiology office with Dr. Garcia. Recently underwent outpatient stress test January, suggestive of ischemia. Did undergo heart catheterization April 09, revealing 50% left main stenosis, mid LAD stenosis at 90%, first diagonal branch of the LAD with 50% stenosis, and proximal RCA stenosis 85%. Patient was referred to cardiothoracic surgery for evaluation, and brought in yesterday for an elective CABG. Preop chest CT from his previous admission showing extensive three-vessel coronary artery calcifications. Some focal tree-in-bud opacities in the periphery right base. A couple fissural pulmonary nodules on the right measuring 1 cm. Favored to be benign. Preoperative pulmonary function test with the FEV1/FVC ratio of 78%. FEV1 was 3.42 L or 98% of predicted. Yesterday, Dr. Armas did perform a quadruple bypass including a CARBALLO to the diagonal and then to the LAD, left radial artery graft to the OM1, reverse SVG from the aorta to the posterior lateral branch of the RCA. Also, exclusion of left atrial appendage. No perioperative complications were reported. Postoperatively, the patient was sent to the intensive care unit, intubated to the mechanical ventilator. Chest x-ray showing postoperative changes. No significant pleural effusions, pneumothoraces, or focal consolidations. Endotracheal tube 6.1 cm of the joslyn. Nasogastric tube projects below the diaphragm. Pulmonary artery catheter in appropriate position. Thoracotomy tubes noted. Patient was ultimately switched to pressure support and follow-up ABG after 30 minutes showing a PaO2 of 194, pCO2 of 44, and pH of 7.34. Patient did have satisfactory weaning parameters including an RSBI of 49, negative -27, positive cuff leak. Dr. Camarena previously had given orders to extubate. Patient was successfully extubated without complication at 1950 to 2 L/min nasal cannula. Postoperative labs including a WBC count of 6.6, hemoglobin 8.8 g/dL, platelets 88,000. BMP with sodium 137, potassium 4.7, chloride 110, serum bicarb 21, BUN 12, creatinine 0.74, glucose 131. iCal 4.6. Magnesium 2.4. LFTs unremarkable. Patient currently being evaluated in the intensive care unit following interval into extubation. He is resting comfortably on 2 L/min nasal cannula. His incentive spirometer is at bedside. Achieving around 1000 mL. Denies any difficulty in breathing. States he has some left posterior lateral back pain. Better controlled following the addition of Toradol. He does have 2 mediastinal chest tubes with a total of 370 mL of serosanguineous output so far. Left pleural chest tube with 500 cc of sanguinous output and a right pleural chest tube with 150 cc of serosanguineous output. No notable airleak. Chest tubes are hooked to atrium and suction at -20 cm H2O. he also has a right lower extremity VENUS drain which is compressed with minimal output and a left forearm VENUS drain also compressed with minimal output. Blood pressure is slightly hypertensive. Most recent CO/CI 5.8 and 2.8 respectively. Not requiring any inotropes. Normal sinus infusing at 30 mL/h. Nitroglycerin infusing at 5 mcg/min. Insulin per protocol. He does have a epicardial pacemaker set to AAI with a backup rate of 70 bpm. Currently has his own intrinsic rhythm, normal sinus on bedside monitor. Urine output is adequate in order of 30 cc/h. The patient is seen today May 01, 2025 in follow-up in the intensive care unit. He is currently sitting up in a chair at the bedside. Awake and alert in no acute distress. This is postoperative day #3 of quadruple coronary artery bypass grafting. He is maintaining good O2 saturations in the 90s on room air oxygen. No IV fluids. No evidence of focal consolidation or pneumothorax. There is a small left pleural effusion. He continues to work well with the incentive spirometer pulling nearly 1250 mL. He had been up ambulating with assistance. White count 5.0. Hemoglobin 7.7. Platelets 93,000. Sodium 137. Potassium 4.3. Bicarb 24. BUN 14. Creatinine 0.9. Glucose 95. He remains on DuoNeb inhalations. Heparin for DVT prophylaxis. Progress note dated May 02, 2025. 60-year-old male postop day #4, status post four-vessel bypass surgery. He is seen today in room 359. His is in the room. The patient is hoping to be discharged home today. He is feeling well, without any complaints. He denies any shortness of breath, cough, wheezing, chest tightness, phlegm production, chest pain or pressure, palpitations, etc. White count is 4.9, hemoglobin 7.4, hematocrit 22.9, platelet count 129,000. Sodium 137, potassium 4.3, chlorides 107, CO2 23, BUN 17, creatinine 0.96. Glucose is 89. Calcium is 8.5. Chest x- ray shows a small left-sided pleural effusion. Objective - Vital Signs Vital signs: Vital Signs Temp 97.8 F 05/02/25 08:00 Pulse 82 05/02/25 11:55 Resp 18 05/02/25 08:00 BP 110/70 05/02/25 08:00 Pulse Ox 98 05/02/25 08:00 FiO2 50 04/28/25 19:00 Intake & Output 05/01/25 05/02/25 05/02/25 18:59 06:59 18:59 Intake Total 286 Output Total 1090 700 400 Balance -804 -700 -400 Weight 92.5 kg Intake: IV 46 Pressure Bags 6 Sodium Chloride 0.9% 1, 40 000 ml @ 20 mls/hr IV . Q24H [facility] Rx#:[id number] Oral 240 Output: Urine 1090 700 400 Other: Voiding Method Toilet Toilet Urinal Urinal # Voids 2 # Bowel Movements 1 ABP, PAP, CO, CI - Last Documented Arterial Blood Pressure 65/53 Pulmonary Artery Pressure 22/6 Cardiac Output 5.7 Cardiac Index 2.8 - Exam No acute distress, oriented 3. HEENT examination is grossly unremarkable. Mucous membranes are moist. No oral lesions. Neck supple. Full range of motion. No adenopathy thyromegaly or neck vein distention. Cardiovascular examination reveals regular rhythm rate. S1-S2 normal. No S3 or S4. No discernible murmur noted. Lungs reveal clear breath sounds. Breath sounds are equal bilaterally. No adventitious lung sounds including wheezes rhonchi or crackles. Abdomen soft bowel sounds are heard. No masses or tenderness. Extremities are intact. No cyanosis clubbing or edema. Skin is without rash or lesion. Neurologic examination is brief but nonfocal. - Labs CBC & Chem 7: 05/02/25 04:10 05/02/25 04:10 Labs: Abnormal Lab Results - Last 24 Hours (Table) 05/01/25 05/02/25 Range/Units 19:50 04:10 RBC 2.46 L (4.40-5.60) 10*6/uL Hgb 7.4 L (13.0-17.0) g/dL Hct 22.9 L (39.6-50.0) % Plt Count 129 L (140-440) 10*3/uL MPV 9.4 L (9.5-12.2) fL POC Glucose (mg/dL) 112 H (70-110) mg/dL Assessment and Plan Assessment: S/P operative day #4 following quadruple coronary artery bypass grafting, including CARBALLO to the diagonal and then to the LAD, left radial artery graft to the OM1, reverse SVG from the aorta to the posterior lateral branch of the RCA. Also, exclusion of left atrial appendage. Routine mechanical ventilator management, with interval extubation. Acute blood loss anemia. Thrombocytopenia. Multivessel coronary artery disease. History of NE with previous stents to the LAD and RCA. History of hypertension. History of hyperlipidemia. Former tobacco smoker. Plan: Plan dated May 02, 2025. The patient is seen today in room 359. His is in the room with him. He is on room air. He is not receiving any IV fluids. He continues to progress nicely. All labs, x-rays, and medications are reviewed. The patient is hoping to be discharged home later today. We will continue to follow, just in case he does not get discharged. We recommend that he continue to use the incentive spirometer, and that he take at home with him. He will see me back in the office in a couple of weeks. No additional recommendations are made. He denies any chest pain or pressure. He denies any shortness of breath. Dictation was produced using [employer] software. Please excuse any grammatical, word or spelling errors. Time with Patient: Less than 30
--- NOTE | 2025-05-02 13:32 | P.PN ---
Subjective Progress Note Date: 05/02/25 This is a 60-year-old male patient with coronary artery disease status post bypass surgery. He has been transferred out of the intensive care unit and seen today on the cardiac stepdown unit. Patient denies chest pain or chest pressure. He is anxious to be discharged home today. He remains in sinus rh yt. Blood pressure 110/70, heart rate 99, pulse ox 98% on room air. Repeat blood work reveals hemoglobin 7.4, WBC 4.9, BUN 17, creatinine 0.96, potassium 4.3. Physical examination: Gen: This is 60-year-old male sitting up in recliner and appears to be comfortable and in no acute distress VS: reviewed HEENT: Head is atraumatic, normocephalic. Pupils equal, round. Sclerae is anicteric. NECK: Supple. No JVD. LUNGS: Clear to auscultation. No wheezes or rhonchi. No intercostal retractions. HEART: Regular rate and rhythm. No murmur. ABDOMEN: Soft No tenderness. EXTREMITIES: No pedal edema. No calf tenderness. NEUROLOGICAL: Patient is awake, alert and oriented x3. Assessment: Coronary artery disease status post CABG Anemia secondary to perioperative blood loss, expected Plan: Continue current cardiac medications Follow-up with cardiology in 1 to 2 weeks Nurse practitioner note has been reviewed, I agree with documented findings and plan of care. Patient was seen and examined. Objective - Vital Signs Vital signs: Vital Signs Temp 97.8 F 05/02/25 08:00 Pulse 99 05/02/25 08:00 Resp 18 05/02/25 08:00 BP 110/70 05/02/25 08:00 Pulse Ox 98 05/02/25 08:00 FiO2 50 04/28/25 19:00 Intake & Output 05/01/25 05/02/25 05/02/25 18:59 06:59 18:59 Intake Total 286 Output Total 1090 700 Balance -804 -700 Weight 92.5 kg Intake: IV 46 Pressure Bags 6 Sodium Chloride 0.9% 1, 40 000 ml @ 20 mls/hr IV . Q24H [facility] Rx#:[id number] Oral 240 Output: Urine 1090 700 Other: Voiding Method Toilet Toilet Urinal Urinal # Voids 2 ABP, PAP, CO, CI - Last Documented Arterial Blood Pressure 65/53 Pulmonary Artery Pressure 22/6 Cardiac Output 5.7 Cardiac Index 2.8 - Labs CBC & Chem 7: 05/02/25 04:10 05/02/25 04:10 Labs: Abnormal Lab Results - Last 24 Hours (Table) 05/01/25 05/02/25 Range/Units 19:50 04:10 RBC 2.46 L (4.40-5.60) 10*6/uL Hgb 7.4 L (13.0-17.0) g/dL Hct 22.9 L (39.6-50.0) % Plt Count 129 L (140-440) 10*3/uL MPV 9.4 L (9.5-12.2) fL POC Glucose (mg/dL) 112 H (70-110) mg/dL
== END 2025-05-02 14:33 | disposition home health service (06) | DRG 236 ==
LOC: 2ORMAIN 05:35 → 2SICU 14:58 → 3SCARD 05-01 14:45
PROVIDERS: ADMIT Surgery; ATTEND Surgery
PROC: 03BC4ZZ Excision of Left Radial Artery, Percutaneous Endoscopic Approach (ICD-10-PCS; 2025-04-28)
PROC: 02L70CK Occlusion of Left Atrial Appendage with Extraluminal Device, Open Approach (ICD-10-PCS; 2025-04-28)
PROC: B24BZZ4 Ultrasonography of Heart with Aorta, Transesophageal (ICD-10-PCS; 2025-04-28)
PROC: 5A1221Z Performance of Cardiac Output, Continuous (ICD-10-PCS; 2025-04-28)
PROC: 4A0305C Measurement of Arterial Flow, Coronary, Open Approach (ICD-10-PCS; 2025-04-28)
PROC: 021 Heart and Great Vessels, Bypass (ICD-10-PCS; principal; 2025-04-28 08:00)
PROC: 02100AW Bypass Coronary Artery, One Artery from Aorta with Autologous Arterial Tissue, Open Approach (ICD-10-PCS; 2025-04-28 08:00)
PROC: 021109W Bypass Coronary Artery, Two Arteries from Aorta with Autologous Venous Tissue, Open Approach (ICD-10-PCS; 2025-04-28 08:00)
PROC: 06BP4ZZ Excision of Right Saphenous Vein, Percutaneous Endoscopic Approach (ICD-10-PCS; 2025-04-28 08:00)
DX: T82.855A Stenosis of coronary artery stent, initial encounter (principal); D62 Acute posthemorrhagic anemia; D69.59 Other secondary thrombocytopenia; I10 Essential (primary) hypertension; I25.10 Atherosclerotic heart disease of native coronary artery without angina pectoris; R00.1 Bradycardia, unspecified; R73.03 Prediabetes; E78.5 Hyperlipidemia, unspecified; I25.2 Old myocardial infarction; Z87.891 Personal history of nicotine dependence; Z79.899 Other long term (current) drug therapy; Y71.1 Therapeutic (nonsurgical) and rehabilitative cardiovascular devices associated with adverse incidents; Z82.49 Family history of ischemic heart disease and other diseases of the circulatory system
CPT/HCPCS: 71045; 71046; 80048; 80053; 82330; 82805; 83735; 85025; 85027; 85610; 85730; 86850; 86891; 86900; 86901; 86920; 94002; 94640; 94760